=== PATIENT | male | born 1975 | race Caucasian/White ===

== ENCOUNTER 2016-12-24 17:31 | Emergency (ER) | payer MEDICAID, OTHER ==
[~2016-12-24] VITALS: Ht 188 cm; Wt 113.4 kg
[~2016-12-24 17:31] MED LIST: ZOFR4TAB3 SL
[2016-12-24 17:40] VITALS: BP 173/74; PULSE 93; RESP 16; TEMP 97.9; O2SAT 97
--- NOTE | 2016-12-24 19:03 | PD ---
HPI Chief Complaint: Injury Time Seen by Provider: 18:38 Travel History International Travel<30 days: No Contact w/Intl Traveler<30days: No Traveled to known affect area: No History of Present Illness HPI 41-year-old male presents to the emergency room for evaluation of left shoulder pain and swelling after injuring it yesterday. Patient states he carried a heavy couch up 3 flights of stairs and had some pain at that time. States pain worsened throughout the day today. No other trauma or injury. He cannot take ibuprofen because of history of GI bleeding. Patient has not taken anything else for his symptoms. Reports associated pinkie and some paresthesias. PFSH Past Medical History Arthritis: Yes (REITERS SYNDROME) Cancer: No Cardiovascular Problems: Yes (HEART MURMUR) Diminished Hearing: No Endocrine: No Gastrointestinal Disorders: Yes (HX OF GI BLEED) Genetic Disorder: Yes (REITERS) Genitourinary: No Immune Disorder: No Implanted Vascular Access Dvce: No Musculoskeletal: Yes Neurologic: No Psychiatric: No Reproductive: No Respiratory: No Immunizations Current: No Past Surgical History Abdominal Surgery: Yes (BILAT INGUINAL REPAIR) Genitourinary Surgery: Yes (VASECTOMY) Other Surgery: Yes (BILAT. PATELLAR-TENDON REALIGNMENTS) Social History Alcohol Use: Yes (Weekends 6 BEERS TODAY) Tobacco Use: No (Denies) Substance Use: No Allergies-Medications (Allergen,Severity, Reaction): Coded Allergies: tramadol (Unverified Adverse Reaction, Intermediate, NIGHTMARE, 12/24/16) acetaminophen (Unverified Adverse Reaction, Mild, VOMITING, 12/24/16) codeine (Unverified Adverse Reaction, Mild, VOMITING, 12/24/16) hydrocodone (Unverified Adverse Reaction, Mild, VOMITING, 12/24/16) Uncoded Allergies: Fentanyl patch (Adverse Reaction, Severe, "Eats my flesh off", 06/21/15) Reported Meds & Prescriptions Reported Meds & Active Scripts Active No Active Prescriptions or Reported Medications Review of Systems Except as stated in HPI: all other systems reviewed are Neg Physical Exam Narrative GENERAL: Well-nourished, well-developed male in no acute distress. Afebrile. Ambulatory. SKIN: Focused skin assessment warm/dry. No erythema or ecchymosis. HEAD: Normocephalic. EYES: No scleral icterus. No injection or drainage. NECK: Supple, trachea midline. No JVD or lymphadenopathy. CARDIOVASCULAR: Regular rate and rhythm without murmurs, gallops, or rubs. RESPIRATORY: Breath sounds equal bilaterally. No accessory muscle use. MUSCULOSKELETAL: No cyanosis. Mild edema of the left shoulder. Extreme tenderness to palpation of the anterior humeral head. Limited range of motion secondary to pain. 2+ radial pulse. Radial, ulnar, and median nerves intact. Slight decreased strength in the ulnar distribution secondary to pain. Data Data Last Documented VS Vital Signs Date Time Temp Pulse Resp B/P (MAP) Pulse Ox O2 Delivery O2 Flow Rate FiO2 12/24/16 17:40 97.9 93 16 173/74 (107) 97 MDM Medical Decision Making Medical Screen Exam Complete: Yes Emergency Medical Condition: Yes Medical Record Reviewed: Yes Differential Diagnosis sprain, strain, rotator cuff injury, fracture, dislocation Narrative Course 41-year-old male presents to the emergency room for evaluation of left shoulder pain after injuring it while lifting a heavy couch yesterday. States pain progressively worsened. Left upper extremity is neurovascularly intact with 2+ radial pulse. Radial, ulnar, and median nerves intact. Limited range of motion of the shoulder secondary to pain. There is mild edema but no significant tenderness to palpation of the left shoulder. This is rotator cuff injury. Patient was informed that will not show up on x-ray. He was told to follow-up with his primary care physician for outpatient MRI. Patient was given sling but told not to wear more than 3 days and take Tylenol for pain. Patient reports no allergy to Tylenol, just to Tylenol 3. Told to return for worsening symptoms. He understands and agrees to plan. Diagnosis Primary Impression: Left shoulder pain Qualified Codes: M25.512 - Pain in left shoulder Referrals: Primary Care Physician Additional Instructions: Rest and drink plenty of fluids. Use sling for pain. Do not use more than 3 days. Take Tylenol as directed, as needed for pain. Apply ice to the affected area for 20 minutes at a time, as needed for pain and swelling. Follow-up with a primary care physician. Return to the emergency room for worsening symptoms. Med/Other Pt SpecificInfo: Prescription(s) given Scripts No Active Prescriptions or Reported Meds Disposition: 01 DISCHARGE HOME Condition: Stable Geena Canales Dec 24, 2016 19:03
== END 2016-12-24 19:13 | disposition home or self-care (01) ==
LOC: PHEFT 17:31
DX: M25.512 Pain in left shoulder (principal); S46.002A Unspecified injury of muscle(s) and tendon(s) of the rotator cuff of left shoulder, initial encounter; R20.2 Paresthesia of skin; Z87.39 Personal history of other diseases of the musculoskeletal system and connective tissue; Z86.79 Personal history of other diseases of the circulatory system; Z87.19 Personal history of other diseases of the digestive system; X50.0XXA Overexertion from strenuous movement or load, initial encounter
CPT/HCPCS: 99282

== ENCOUNTER 2017-06-20 01:50 | Emergency (ER) | payer OTHER ==
[2017-06-20] VITALS (7 sets, daily range): BP systolic 80–143; BP diastolic 50–83; PULSE 56–88; RESP 16–18; O2SAT 98–99
[~2017-06-20] VITALS: Ht 188 cm; Wt 115.0 kg
[2017-06-20] MEDS ORDERED: PERC5TAB12 PO (02:20)
[2017-06-20] MEDS ORDERED: SODIUM CHLOR 0.9% 1000 ML INJ 1,000 ML IV SCH (03:25)
[2017-06-20] MEDS ORDERED: diphenhydrAMINE HCL 50 MG/ML VIAL IVP ONE (03:30)
[2017-06-20] MEDS ORDERED: methylPREDNISolone SOD SUCC 125 MG/2 ML VIAL IV PUSH ONE (03:30)
[2017-06-20] MEDS ORDERED: SODIUM CHLORIDE 0.9% FLUSH 10 ML FLUSH IV FLUSH PRN (03:30)
[2017-06-20] MEDS ORDERED: EPINEPHrine HCL (1:1000) 1 MG/ML VIAL IM ONE (03:30)
[2017-06-20] MEDS ORDERED: FAMOTIDINE 20 MG/2 ML VIAL IV PUSH ONE (03:30)
--- NOTE | 2017-06-20 03:30 | PD ---
HPI Chief Complaint: Allergic/Adverse Reaction Time Seen by Provider: 03:20 Travel History International Travel<30 days: No Contact w/Intl Traveler<30days: No Traveled to known affect area: No History of Present Illness HPI The patient is a 42-year-old male that developed an urticarial reaction starting about 24 hours ago. It went away completely but came back again tonight. He denies any wheezing or shortness of breath. He is not on any new medication and has no idea what he is allergic to. He thinks that stress may have caused this. He is followed by the [facility] and plans to go to the [facility] tomorrow about this. He is a large individual, not obese and he has no other major medical problems. PFSH Past Medical History Arthritis: Yes (REITERS SYNDROME) Cancer: No Cardiovascular Problems: Yes (HEART MURMUR) Diminished Hearing: No Endocrine: No Gastrointestinal Disorders: Yes (HX OF GI BLEED) Genetic Disorder: Yes (REITERS) Genitourinary: No Immune Disorder: No Implanted Vascular Access Dvce: No Musculoskeletal: Yes Neurologic: No Psychiatric: No Reproductive: No Respiratory: No Immunizations Current: No Tetanus Vaccination: > 5 Years Influenza Vaccination: No Past Surgical History Abdominal Surgery: Yes (BILAT INGUINAL REPAIR) Genitourinary Surgery: Yes (VASECTOMY) Other Surgery: Yes (BILAT. PATELLAR-TENDON REALIGNMENTS) Social History Alcohol Use: Yes (Weekends 6 BEERS TODAY) Tobacco Use: No (Denies) Substance Use: No Allergies-Medications (Allergen,Severity, Reaction): Coded Allergies: tramadol (Unverified Adverse Reaction, Intermediate, NIGHTMARE, 12/24/16) acetaminophen (Unverified Adverse Reaction, Mild, VOMITING, 12/24/16) codeine (Unverified Adverse Reaction, Mild, VOMITING, 12/24/16) hydrocodone (Unverified Adverse Reaction, Mild, VOMITING, 12/24/16) Uncoded Allergies: Fentanyl patch (Adverse Reaction, Severe, "Eats my flesh off", 06/21/15) Reported Meds & Prescriptions Reported Meds & Active Scripts Active Reported Percocet (Oxycodone-Acetaminophen) 5-325 mg Tab 1-2 Tab PO Q4H PRN Review of Systems Except as stated in HPI: all other systems reviewed are Neg Physical Exam Narrative GENERAL: Well-nourished, well-developed patient And slight apparent distress with his generalized allergic reaction SKIN: Focused skin assessment warm/dry. There is an urticarial reaction over the thighs, chest, hands, arms, neck, head, entire trunk. HEAD: Normocephalic. EYES: No scleral icterus. No injection or drainage. NECK: Supple, trachea midline. No JVD or lymphadenopathy. CARDIOVASCULAR: Regular rate and rhythm without murmurs, gallops, or rubs. RESPIRATORY: Breath sounds equal bilaterally. No accessory muscle use. Lungs clear to auscultation bilaterally. GASTROINTESTINAL: Abdomen soft, non-tender, nondistended. MUSCULOSKELETAL: No cyanosis, or edema. BACK: Nontender without obvious deformity. No CVA tenderness. Data Data Last Documented VS Vital Signs Date Time Temp Pulse Resp B/P (MAP) Pulse Ox O2 Delivery O2 Flow Rate FiO2 06/20/17 04:05 70 16 132/68 (89) 98 Room Air Orders Orders Basic Metabolic Panel (Bmp) (06/20/17 03:25) Complete Blood Count With Diff (06/20/17 03:25) Ecg Monitoring (06/20/17 03:25) Iv Access Insert/Monitor (06/20/17 03:25) Oximetry (06/20/17 03:25) Diphenhydramine Inj (Benadryl Inj) (06/20/17 03:30) Methylprednisolone So Succ Inj (Solumedr (06/20/17 03:30) Famotidine Inj (Pepcid Inj) (06/20/17 03:30) Sodium Chlor 0.9% 1000 Ml Inj (Ns 1000 M (06/20/17 03:25) Sodium Chloride 0.9% Flush (Ns Flush) (06/20/17 03:30) Epinephrine (1:1000) Inj (Adrenalin (1:1 (06/20/17 03:30) MDM Medical Decision Making Medical Screen Exam Complete: Yes Emergency Medical Condition: Yes Medical Record Reviewed: Yes Differential Diagnosis Generalized allergic reaction, contact dermatitis, cellulitis-unlikely, anxiety reaction with urticaria Narrative Course It is now 0410 and the patient's rash has been dramatically reduced and is much less pruritic. The patient wants to go home. He will be given a prescription for prednisone 50 mg, 4 days twice daily and 4 days once daily. He also gets Zantac. He is to buy Benadryl [id number] and take it every 6 hours 25 mg. Impression: Generalized allergic reaction. Diagnosis Primary Impression: Allergic reaction Additional Instructions: As we discussed, the prednisone is taken 1 tablet twice daily for 4 days followed by 1 tablet once daily for 4 days. The Benadryl is taken 25 mg every 6 hours and the Zantac is taken 1 tablet twice daily. Follow-up with your primary care physician next week. Med/Other Pt SpecificInfo: Prescription(s) given Scripts Prednisone (Prednisone) 50 Mg Tab 50 MG PO BID for X 4 days than daily X 4 days, #12 TAB 0 Refills Prov: Albert Parham MD 06/20/17 Ranitidine (Zantac) 150 Mg Tab 150 MG PO BID for Reduce Stomach Acid, #30 TAB 0 Refills Prov: Albert Parham MD 06/20/17 Disposition: 01 DISCHARGE HOME Condition: Stable Albert Parham MD Jun 20, 2017 03:30
[2017-06-20] MEDS ORDERED: PRED50 PO (04:17)
[2017-06-20] MEDS ORDERED: ZANT150T2 PO (04:17)
== END 2017-06-20 05:28 | disposition home or self-care (01) ==
LOC: PHED 01:50
DX: T78.40XA Allergy, unspecified, initial encounter (principal); L50.9 Urticaria, unspecified; M02.30 Reiter's disease, unspecified site; Z88.5 Allergy status to narcotic agent; Z88.8 Allergy status to other drugs, medicaments and biological substances; Z79.899 Other long term (current) drug therapy
CPT/HCPCS: 96361; 96372; 96374; 96375; 99284; J0171; J1200; J2930; J7030

== ENCOUNTER 2018-03-02 21:08 | Observation (INO) ==
[2018-03-02] MEDS ORDERED: Morphine Inj 4 MG/ML Vial IV.PUSH ONE (21:19)
[2018-03-02] MEDS: Sod Chloride 0.9% Inj 1,000 ML IV.CONT SCH (21:24)
[2018-03-02 21:38] LABS: Baso # (Auto) 0.1 th/mm3 (0.0-0.2); Baso % (Auto) 0.8 % (0.0-2.0); Eos # (Auto) 0.2 th/mm3 (0.0-0.4); Eos % (Auto) 2.5 % (0.0-4.0); Hematocrit 41.6 % (39.0-51.0); Hemoglobin 14.8 gm/dL (13.0-17.0); Lymph # (Auto) 2.3 th/mm3 (1.0-4.8); Lymph % (Auto) 36.5 % (9.0-44.0); Mean Corpuscular HGB Conc 35.5 % (32.0-36.0); Mean Corpuscular Hemoglobin 30.2 pg (27.0-34.0); Mean Corpuscular Volume 84.9 fL (80.0-100.0); Mean Platelet Volume 9.1 fL (7.0-11.0); Mono # (Auto) 0.6 th/mm3 (0.0-0.9); Mono % (Auto) 10.1 % (0.0-8.0); Neut % (Auto) 50.1 % (16.0-70.0); Platelet Count 239 th/mm3 (150-450); Red Cell Distribution Width 11.4 % (11.6-17.2); White Blood Count 6.3 th/mm3 (4.0-11.0)
--- NOTE | 2018-03-02 21:40 | XR ---
EXAM DATE: 03/02/2018 9:37 PM EST AGE/SEX: 43 years / Male INDICATIONS: Chest pain. CLINICAL DATA: This is the patient's initial encounter. Patient reports that signs and symptoms have been present for 1 day and indicates a pain score of 8/10. MEDICAL/SURGICAL HISTORY: . Cariomyopathy. . Left shoulder. Bilateral knees. COMPARISON: No prior exams available for comparison. FINDINGS: A single AP view of the chest demonstrates the lungs to be symmetrically aerated without evidence of mass, infiltrate or effusion. The cardiomediastinal contours are unremarkable. Osseous structures a re intact. CONCLUSION: No evidence of acute cardiopulmonary disease. Electronically signed by: Hunter Snowden MD 03/02/2018 9:39 PM EST
[2018-03-02 21:43] LABS: Chloride 104 meq/L (98-107); Potassium 3.5 meq/L (3.5-5.1); Sodium 137 meq/L (136-145)
--- NOTE | 2018-03-02 21:43 | ED ---
HPI General Chief Complaint: Chest Pain Stated Complaint: CP x 45 min Time Seen by Provider: 03/02/18 21:14 Source: patient Mode of arrival: ambulatory Limitations: no limitations History of Present Illness HPI narrative: 43-year-old male presents to the emergency department by private transportation for 45 minutes of retrosternal chest pain nonradiating associated with mild shortness of breath and diaphoresis. Patient has had nausea. Patient states onset at rest while watching TV. Patient rates pain 10/ 10 in intensity. Patient states one prior history of similar chest pain without evaluation. Patient is currently under the care of cardiology. Patient has undergone echocardiogram and Holter monitoring. Patient encouraged to come to the emergency room should he develop discomfort or chest pain. Patient diagnosed in 2014 with hypertrophic obstructive cardiomyopathy was lost to follow-up and since December of this year has been evaluated by cardiology through the [facility]. Patient denies personal history of hypertension dyslipidemia diabetes tobaccoism substance use or known CAD. Patient has family history of atrial fibrillation. Patient's had no rhythm disturbance. Patient takes no blood thinning agents including aspirin. Patient denies alcohol use. Patient denies any mid scapular pain or ripping tearing discomfort. Patient denies any referred neck jaw back shoulder arm or abdominal pain. Patient has had no long distance travel protracted bedrest or surgical procedure. Patient has no lower extremity pain or swelling. No personal history of family history of clotting disorder PE or DVT. Patient's had no recent febrile illness. Patient is unable to identify exacerbating or alleviating factors. MD complaint: Reports chest pain STEMI Alert: No Onset (ago): minute(s) (45) Duration: constant Onset: during rest Pain location: Reports substernal Severity: severe Severity scale (1-10): 10 Quality: Reports tightness, aching and heaviness Pain radiation: Reports none Relieving factors: nothing Exacerbating factors: nothing Context: Denies recent illness, recent surgery, recent immobilization, recent travel, trauma/injury, new medications and history of DVT/PE Associated symptoms: Reports nausea, diaphoresis and dyspnea; Denies vomiting, sense of impending doom, syncope, palpitations, fever, cough and leg swelling Treatments prior to arrival chest pain: Reports none Related Data Home Medications Medication Instructions Recorded Confirmed Unable to Obtain Home Meds 03/03/18 03/03/18 Allergies Allergy/AdvReac Type Severity Reaction Status Date / Time tramadol AdvReac Intermediate NIGHTMARE Verified 03/02/18 22:50 acetaminophen AdvReac Mild VOMITING Verified 03/02/18 22:50 codeine AdvReac Mild VOMITING Verified 03/02/18 22:50 Fentanyl patch AdvReac Severe "Eats my Uncoded 03/02/18 21:16 flesh off" Review of Systems ROS: all other systems reviewed are negative PMFSH History History Provided By: Patient Medical History Medical History Hypertrophic obstructive cardiomyopathy (Acute) Surgical History Surgical History H/O bilateral inguinal hernia repair (Acute) H/O knee surgery (Acute) History of shoulder surgery (Acute) Social History Social History Substance History: No History of Abuse Second Hand Smoke Exposure: No Smoking Status: Former smoker Tobacco Type: Cigarettes How Often Do You Have a Drink Containing Alcohol: 2 to 3 times a week Recent Travel in [facility] within the Last 8 Weeks: No Recent Out of Country Travel within the Last 8 Weeks: No Exam Narrative Exam Narrative: GENERAL: Well-nourished, well-developed patient. SKIN: Focused skin assessment warm/dry. HEAD: Normocephalic. EYES: No scleral icterus. No injection or drainage. NECK: Supple, trachea midline. No JVD or lymphadenopathy. CARDIOVASCULAR: Regular rate and rhythm without murmurs, gallops, or rubs. RESPIRATORY: Breath sounds equal bilaterally. No accessory muscle use. GASTROINTESTINAL: Abdomen soft, non-tender, nondistended. MUSCULOSKELETAL: No cyanosis, or edema. BACK: Nontender without obvious deformity. No CVA tenderness. Course Consultations Consultation #1: discussed with Dr Christal burdick stemi/cardiology coverage and EKG's sent and reviewed; [facility] OBS with nuclear stress test and/or CTA heart/ coronaries per protocol in AM. Initial Documented Vital Signs Temperature 97.9 F 03/02/18 21:10 Pulse Rate 79 03/02/18 21:10 Respiratory Rate 22 03/02/18 21:10 Blood Pressure 180/99 H 03/02/18 21:10 Pulse Oximetry 98 03/02/18 21:10 Last Documented Vital Signs Temperature 96.6 F L 03/03/18 00:21 Pulse Rate 61 03/03/18 00:21 Respiratory Rate 20 03/03/18 00:21 Blood Pressure 135/72 03/03/18 00:21 Pulse Oximetry 95 03/03/18 00:21 Medical Decision Making MDM Narrative Medical decision making narrative: Patient placed on cardiac sonographer IV access obtained specimens collected and sent for resulting EKG performed shows sinus rhythm rate 80 left atrial enlargement QS inferiorly with no acute ST elevation J-point elevation identified V1 V2 no ST segment depression T wave inversion laterally nonspecific; patient given aspirin 162 mg x1 as well as sublingual nitroglycerin. Pain was 10/10 in intensity decreased to 5/10 in intensity additional sublingual nitroglycerin was administered and pain state 5/10 in intensity but patient dropped his blood pressure becoming symptomatic with lightheadedness placed supine patient given bolus of normal saline. No nausea no vomiting no increased pain stat repeat EKG again shows sinus rhythm with LVH by voltage criterion QS inferiorly with no ST segment depression J-point elevation in V1 V2 however concern for possible ST elevation in lead III. Nitropaste 1/2 inch placed to the chest wall and call placed to cardiology. Cardiac enzymes found to be in normal range Patient's case discussed with on-call toy stuffer Dr. Siegel Patient's case discussed with on-call medicine physician Dr. Olmstead accepts to [facility] Medical Screen Exam Complete: Yes Emergency Medical Condition: Yes Differential Diagnosis Differential Diagnosis: Chest pain, ACS, HI, dissection Medical Records Medical records reviewed: Yes I reviewed the patient's medical records. Lab Data Lab results reviewed: Yes I reviewed the patient's lab results. Result diagrams: 03/02/18 21:20 03/02/18 21:20 Lab Results 03/02/18 03/02/18 03/02/18 Range/Units 21:20 21:20 21:20 CBC w Diff Auto diff final WBC 6.3 (4.0-11.0) th/mm3 RBC 4.90 (4.50-5.90) mil/mm3 Hgb 14.8 (13.0-17.0) gm/dL Hct 41.6 (39.0-51.0) % MCV 84.9 (80.0-100.0) fL MCH 30.2 (27.0-34.0) pg MCHC 35.5 (32.0-36.0) % RDW 11.4 L (11.6-17.2) % Plt Count 239 (150-450) th/mm3 MPV 9.1 (7.0-11.0) fL Neut % (Auto) 50.1 (16.0-70.0) % Lymph % (Auto) 36.5 (9.0-44.0) % Knox % (Auto) 10.1 H (0.0-8.0) % Eos % (Auto) 2.5 (0.0-4.0) % Baso % (Auto) 0.8 (0.0-2.0) % Neut # (Auto) 3.0 (1.8-7.7) th/mm3 Lymph # (Auto) 2.3 (1.0-4.8) th/mm3 Knox # (Auto) 0.6 (0.0-0.9) th/mm3 Eos # (Auto) 0.2 (0.0-0.4) th/mm3 Baso # (Auto) 0.1 (0.0-0.2) th/mm3 WBC Differential . Differential Comment . PT 10.3 (9.8-11.6) sec INR 1.0 Ratio APTT 28.0 (23.4-31.7) sec Sodium 137 (136-145) meq/L Potassium 3.5 (3.5-5.1) meq/L Chloride 104 (98-107) meq/L Carbon Dioxide 26.3 (21.0-32.0) meq/L Anion Gap 7 (5-15) meq/L BUN 14 (7-18) mg/dL Creatinine 1.10 (0.60-1.30) mg/dL Estimated GFR 73 L (>89) mL/min Random Glucose 122 H (74-106) mg/dL Calcium 8.3 L (8.5-10.1) mg/dL Magnesium 2.2 (1.5-2.5) mg/dL Total Bilirubin 0.6 (0.2-1.0) mg/dL AST 23 (15-37) U/L ALT 47 (12-78) U/L Alkaline Phosphatase 87 (45-117) U/L Total Creatine Kinase (39-308) U/L Troponin I Less than 0.02 L (0.02-0.05) ng/mL Total Protein 7.6 (6.4-8.2) g/dL Albumin 4.1 (3.4-5.0) g/dL 03/03/18 Range/Units 00:10 CBC w Diff WBC (4.0-11.0) th/mm3 RBC (4.50-5.90) mil/mm3 Hgb (13.0-17.0) gm/dL Hct (39.0-51.0) % MCV (80.0-100.0) fL MCH (27.0-34.0) pg MCHC (32.0-36.0) % RDW (11.6-17.2) % Plt Count (150-450) th/mm3 MPV (7.0-11.0) fL Neut % (Auto) (16.0-70.0) % Lymph % (Auto) (9.0-44.0) % Knox % (Auto) (0.0-8.0) % Eos % (Auto) (0.0-4.0) % Baso % (Auto) (0.0-2.0) % Neut # (Auto) (1.8-7.7) th/mm3 Lymph # (Auto) (1.0-4.8) th/mm3 Knox # (Auto) (0.0-0.9) th/mm3 Eos # (Auto) (0.0-0.4) th/mm3 Baso # (Auto) (0.0-0.2) th/mm3 WBC Differential Differential Comment PT (9.8-11.6) sec INR Ratio APTT (23.4-31.7) sec Sodium (136-145) meq/L Potassium (3.5-5.1) meq/L Chloride (98-107) meq/L Carbon Dioxide (21.0-32.0) meq/L Anion Gap (5-15) meq/L BUN (7-18) mg/dL Creatinine (0.60-1.30) mg/dL Estimated GFR (>89) mL/min Random Glucose (74-106) mg/dL Calcium (8.5-10.1) mg/dL Magnesium (1.5-2.5) mg/dL Total Bilirubin (0.2-1.0) mg/dL AST (15-37) U/L ALT (12-78) U/L Alkaline Phosphatase (45-117) U/L Total Creatine Kinase 138 (39-308) U/L Troponin I 0.04 (0.02-0.05) ng/mL Total Protein (6.4-8.2) g/dL Albumin (3.4-5.0) g/dL Imaging Data Radiologist's impression: Chest X-Ray 03/02/18 21:14 CONCLUSION: No evidence of acute cardiopulmonary disease. ECG Data Attestation: I personally reviewed and interpreted this ECG as follows: (EKG sinus rhythm with no acute ST elevation nonspecific J-point elevation V1 V2 and Q wave age-indeterminate inferiorly.) Discharge Plan Discharge Disposition Patient Disposition: 30 Still Patient Discharge Condition Condition: Stable Discharge Details Diagnosis: Chest pain Physicians Team ED Provider: Angeles Chang Primary Care Provider: [facility],Physician 's Attending Provider: Itzel Le ED Status: Left Department Discharge Information Discharge Date/Time: 03/03/18 00:24
[2018-03-02 21:46] LABS: Albumin 4.1 g/dL (3.4-5.0); Anion Gap 7 meq/L (5-15); Calcium 8.3 mg/dL (8.5-10.1); Carbon Dioxide 26.3 meq/L (21.0-32.0); Glucose,Random 122 mg/dL (74-106); Magnesium 2.2 mg/dL (1.5-2.5)
[2018-03-02 21:47] LABS: Blood Urea Nitrogen 14 mg/dL (7-18)
[2018-03-02 21:49] LABS: Alanine Aminotransferase 47 U/L (12-78); Aspartate Aminotransferase 23 U/L (15-37); Prothrombin Time 10.3 sec (9.8-11.6)
[2018-03-02 21:50] LABS: Glomerular Filtration Rate 73 mL/min (>89)
[2018-03-02 21:51] LABS: Total Protein 7.6 g/dL (6.4-8.2)
[2018-03-02 21:52] LABS: Alkaline Phosphatase 87 U/L (45-117)
[2018-03-02] MEDS ORDERED: Sodium Chlor 0.9% Inj 500 ML IV.SIG SCH (22:00)
[2018-03-02] MEDS ORDERED: ALPRAZolam 0.25 MG Tablet PO PRN (22:30)
[2018-03-02] MEDS ORDERED: Iohexol 350 MG/ML 100 ML Vial (for Cath Lab) IVCONTRAST ONE (22:41)
[2018-03-03 00:37] LABS: Troponin I 0.04 ng/mL (0.02-0.05)
[2018-03-03] MEDS: Morphine Sulfate Inj 2 MG/ML Vial IV.PUSH PRN ×2 (00:45→09:14)
[2018-03-03 04:05] LABS: Troponin I 0.04 ng/mL (0.02-0.05)
[2018-03-03] MEDS: Sod Chloride 0.9% Inj 1,000 ML IV.CONT SCH ×2 (06:28→17:17)
--- NOTE | 2018-03-03 07:05 | ECG ---
Date Performed: 03/03/2018 Time Performed: 03:13:58 PTAGE: 43 years EKG: SINUS BRADYCARDIA POSSIBLE RIGHT VENTRICULAR CONDUCTION DELAY LEFT VENTRICULAR HYPERTROPHY AND ST-T CHANGE ABNORMAL ECG No significant change from prior electrocardiogram. PREVIOUS TRACING : 03/03/2018 00.09 DOCTOR: Randy Nieto Interpretating Date/Time 03/03/2018 07:05:07
--- NOTE | 2018-03-03 07:08 | ECG ---
Date Performed: 03/03/2018 Time Performed: 00:09:45 PTAGE: 43 years EKG: SINUS BRADYCARDIA LEFT VENTRICULAR HYPERTROPHY AND ST-T CHANGE POSSIBLE INFERIOR MYOCARDIAL INFARCTION POSSIBLE BRUGADA PATTERN (NON-DIAGNOSTIC) ABNORMAL ECG No significant change from prior e lectrocardiogram. PREVIOUS TRACING : 03/02/2018 21.49 DOCTOR: Randy Nieto Interpretating Date/Time 03/03/2018 07:06:54
--- NOTE | 2018-03-03 07:11 | ECG ---
Date Performed: 03/02/2018 Time Performed: 21:49:17 PTAGE: 43 years EKG: Sinus rhythm POSSIBLE RIGHT VENTRICULAR CONDUCTION DELAY LEFT VENTRICULAR HYPERTROPHY AND ST-T CHANGE POSSIBLE IN FERIOR MYOCARDIAL INFARCTION POSSIBLE Brugada pattern ABNORMAL ECG No significant change from prior e lectrocardiogram. DOCTOR: Randy Nieto Interpretating Date/Time 03/03/2018 07:09:27
--- NOTE | 2018-03-03 07:11 | ECG ---
Date Performed: 03/02/2018 Time Performed: 21:17:07 PTAGE: 43 years EKG: Sinus rhythm POSSIBLE LEFT ATRIAL ENLARGEMENT POSSIBLE INFERIOR MYOCARDIAL INFARCTION Nonspecific ST and T wave a bnormalities POSSIBLE Brugada ABNORMAL ECG NO PREVIOUS TRACING DOCTOR: Randy Nieto Interpretating Date/Time 03/03/2018 07:10:11
[2018-03-03] MEDS: Aspirin 325 MG Tablet PO SCH (08:48)
[2018-03-03] MEDS ORDERED: Heparin 10,000 UNITS/10 ML Vial (for IV use) IV.PUSH ONE (09:30)
[2018-03-03] MEDS: Heparin Drip 25,000 UNIT/250 ML BAG IV.CONT PRN (09:49)
--- NOTE | 2018-03-03 09:54 | P.HP ---
History of Present Illness Primary Care Physician: Physician [facility] Chief Complaint: Chest pain History of Present Illness: 43-year-old male with rather sniffing cardiac history with severe hypertrophic cardiomyopathy who is undergoing management by [employer] in [place]. Patient states that since December of this year he has been managed by [facility] cardiology in [place]. Patient has undergone echocardiogram to show severe hypertrophic cardiomyopathy. He has undergone recent Holter monitor, he has an appointment with cardiovascular radiologic technologist in March to evaluate possible ablation versus cardiac surgery, AICD placement. Patient was in his normal state of health until last evening when he was watching TV at approximately 9: 00 at night when he got a sudden onset of chest discomfort which he described as a elephant sitting on his chest and a squeezing sensation around his heart which was 8/10 on a pain scale. He had associated diaphoresis, shortness of breath, dyspnea. Patient was notified by his [employer] supervisor sign [employer] that if he was to have any discomfort he should go to the hospital immediately because he is at risk for sudden cardiac . Patient was evaluated emergency department with laboratory studies which troponins were unremarkable. Patient had EKGs which did show significant abnormalities with what appears to be ST elevations in lead III, V2, V3, V4, Q waves in inferior leads, T wave abnormalities in leads I , aVR, V1. Patient was given nitroglycerin in the emergency department with only minimal relief of his chest discomfort. Patient did have an episode of hypotension in which his blood pressure dropped down to 78/38. Patient was given a liter fluid bolus with improvement of his blood pressure. Upon seeing the patient he still having active chest discomfort 8/10 on a pain scale located in the middle part of his chest that he describes as a elephant sitting on his chest radiating up into the left side of his neck, left arm, with shortness of breath and dyspnea. - Diagnosis (1) Chest pain Review of Systems All other systems reviewed negative except as stated in HPI Constitutional: Reports excessive sweating Cardiovascular: Reports chest pain, Reports radiating jaw, neck or arm pain, Reports shortness of breath PMFSH - History History Provided By: Patient - Medical History Medical History: Medical History (Last Updated 03/02/18 @ 22:18 by Marion Felton RN) Hypertrophic obstructive cardiomyopathy - Surgical History Surgical History: Surgical History (Last Updated 03/02/18 @ 22:18 by Marion Felton RN) H/O bilateral inguinal hernia repair H/O knee surgery History of shoulder surgery - Family History Family History: Family History (Last Updated 03/03/18 @ 09:43 by BELA Shaw) Father History of atrial fibrillation - Tobacco History Second Hand Smoke Exposure: No Tobacco Use In Past 30 Days: No Smoking Status: Former smoker Tobacco Type: Cigarettes Number of Pack Years (if former smoker): 22 (Quit smoking 5 years ago) - Alcohol History How Often Do You Have a Drink Containing Alcohol: 2 to 3 times a week - Substance Use History Substance History: No History of Abuse - Travel History Recent Travel in the [place] Within the Last 8 Weeks: No Recent Travel Out of the Country Within the Last 8 Weeks: No - Immunization History Tetanus Immunization: <5 Years Medications and Allergies Active Medications: Active Medications Alprazolam (Xanax) 0.25 mg PO Q8H PRN PRN Reason: ANXIETY Aspirin (Aspirin) 325 mg PO DAILY [facility] Last Admin: 03/03/18 08:48 Dose: 325 mg Atorvastatin Calcium (Lipitor) 20 mg PO DAILY [facility] Heparin Sodium (Porcine) (Heparin Inj) 2,500 units IV.PUSH UNSCH PRN PRN Reason: aPTT 25-39 Heparin Sodium (Porcine) (Heparin Inj) 5,000 units IV.PUSH UNSCH PRN PRN Reason: aPTT < 25 Sodium Chloride (Ns Inj) 1,000 mls @ 100 mls/hr IV.CONT .Q10H [facility] Last Admin: 03/03/18 06:28 Dose: Not Given Heparin Sodium/Dextrose (Heparin/D5w 25,000 U/250 Ml) 25,000 unit in 250 mls @ 10 mls/hr IV.CONT TITRATE PRN; Protocol PRN Reason: Per Protocol Metoprolol Tartrate (Lopressor) 12.5 mg PO BID [facility] Miscellaneous (Pill Splitter) 1 each OTHER UNSCH PRN PRN Reason: SEE LABEL COMMENTS Morphine Sulfate (Morphine Inj) 2 mg IV.PUSH Q3H PRN PRN Reason: CHEST PAIN Last Admin: 03/03/18 09:14 Dose: 2 mg Nitroglycerin (Nitro-Bid 2% Oint) 0.5 inch TOPICAL Q6HR [facility] Last Admin: 03/03/18 07:54 Dose: 0.5 inch Sodium Chloride (Ns Flush) 2 ml IV.FLUSH BID AD[facility] Sodium Chloride (Ns Flush) 2 ml IV.FLUSH PRN PRN PRN Reason: FLUSH AFTER USING IV ACCESS Allergies Allergy/AdvReac Type Severity Reaction Status Date / Time tramadol AdvReac Intermediate [place] Verified 03/02/18 22:50 acetaminophen AdvReac Mild VOMITING Verified 03/02/18 22:50 codeine AdvReac Mild VOMITING Verified 03/02/18 22:50 Fentanyl patch AdvReac Severe "Eats my Uncoded 03/02/18 21:16 flesh off" Home Medications Medication Instructions Recorded Confirmed Type Unable to Obtain Home Meds 03/03/18 03/03/18 History Exam Vital signs: Vital Signs 03/02/18 21:10 03/02/18 21:14 03/02/18 21:33 Temperature 97.9 F Pulse Rate 79 64 Respiratory Rate 22 18 Blood Pressure 180/99 H 145/81 H Pulse Oximetry 98 97 03/02/18 21:35 03/02/18 21:38 03/02/18 21:43 Temperature Pulse Rate 74 74 65 Respiratory Rate 18 18 16 Blood Pressure 151/89 H 157/81 H 78/38 L Pulse Oximetry 95 95 95 03/02/18 21:44 03/02/18 21:46 03/02/18 22:01 Temperature Pulse Rate 50 L 56 L 70 Respiratory Rate 16 16 16 Blood Pressure 106/52 L 119/57 L 146/75 H Pulse Oximetry 97 96 03/02/18 22:22 03/02/18 22:27 03/02/18 22:30 Temperature Pulse Rate 65 63 Respiratory Rate 16 17 16 Blood Pressure 141/67 H 148/71 H Pulse Oximetry 98 98 03/02/18 22:40 03/03/18 00:00 03/03/18 00:21 Temperature 96.6 F L Pulse Rate 60 61 Respiratory Rate 20 20 Blood Pressure 145/74 H 135/72 Pulse Oximetry 95 03/03/18 03:15 03/03/18 04:00 03/03/18 04:42 Temperature 96.7 F L Pulse Rate 57 L 55 L Respiratory Rate 20 Blood Pressure 123/62 Pulse Oximetry 96 98 03/03/18 07:43 03/03/18 08:00 03/03/18 09:24 Temperature 97.8 F Pulse Rate 58 L 60 Respiratory Rate 19 18 Blood Pressure 136/77 154/76 H Pulse Oximetry 98 99 03/03/18 09:25 Temperature Pulse Rate Respiratory Rate 18 Blood Pressure Pulse Oximetry Intake & Output 03/02/18 03/03/18 03/03/18 18:59 06:59 18:59 Intake Total 500 / 500 240 / 240 Output Total 400 / 400 Balance 500 / 500 -160 / -160 Weight 128.7 kg Intake: IV 500 / 500 NS Inj 500 ML @ 1000 mls/hr IV. 500 / 500 SIG BOLUS ADAMARIS Rx#:[id number] Oral 0 / 0 240 / 240 Output: Urine 400 / 400 Other: # Voids 1 Weight On Admission 128.6 kg Narrative: GENERAL: Well-developed, well-nourished, in no acute distress. alert and orientated HEENT: Head is normocephalic without any lesions or masses noted. Facial features are symmetric. Eyes: Pupils equal round reactive to light. Extraocular muscles are intact. Conjunctivae were clear. Oropharyngeal: Pharynx without any erythema edema. Tongue is midline without deviation. Buccal mucosa is moist without any masses or lesions NECK: Supple without any masses. Trachea midline no deviation. No JVD, no bruits are appreciated CARDIAC: Regular rhythm, regular rate. S1/S2 are heard. No murmurs gallops or rubs. LUNGS: Clear to auscultation bilaterally. No wheeze, rhonchi or rales. No use of accessory muscles on inspiration or expiration. ABDOMEN: Soft, nontender. Nondistended. Bowel sounds heard in all 4 quadrants. No organomegaly or masses. Negative rebound, negative guarding EXTREMITIES: No edema, pulses are equal bilaterally. No cyanosis or clubbing NEUROLOGY: Mood and affect appear appropriate. Cranial nerves II through XII grossly intact. Muscle strength 5/5 in upper and lower extremities bilaterally. Deep tendon reflexes are 2+ in upper and lower extremities bilaterally. Results - Labs CBC & Chem 7: 03/02/18 21:20 03/02/18 21:20 Labs: Laboratory Results - last 24 hr 03/02/18 03/02/18 03/02/18 21:20 21:20 21:20 CBC w Diff Auto diff final WBC 6.3 RBC 4.90 Hgb 14.8 Hct 41.6 MCV 84.9 MCH 30.2 MCHC 35.5 RDW 11.4 L Plt Count 239 MPV 9.1 Neut % (Auto) 50.1 Lymph % (Auto) 36.5 [place] % (Auto) 10.1 H Eos % (Auto) 2.5 Baso % (Auto) 0.8 Neut # (Auto) 3.0 Lymph # (Auto) 2.3 [place] # (Auto) 0.6 Eos # (Auto) 0.2 Baso # (Auto) 0.1 WBC Differential . Differential Comment . PT 10.3 INR 1.0 APTT 28.0 Sodium 137 Potassium 3.5 Chloride 104 Carbon Dioxide 26.3 Anion Gap 7 BUN 14 Creatinine 1.10 Estimated GFR 73 L Random Glucose 122 H Calcium 8.3 L Magnesium 2.2 Total Bilirubin 0.6 AST 23 ALT 47 Alkaline Phosphatase 87 Total Creatine Kinase Troponin I Less than 0.02 L Total Protein 7.6 Albumin 4.1 03/03/18 03/03/18 00:10 03:20 CBC w Diff WBC RBC Hgb Hct MCV MCH MCHC RDW Plt Count MPV Neut % (Auto) Lymph % (Auto) [place] % (Auto) Eos % (Auto) Baso % (Auto) Neut # (Auto) Lymph # (Auto) [place] # (Auto) Eos # (Auto) Baso # (Auto) WBC Differential Differential Comment PT INR APTT Sodium Potassium Chloride Carbon Dioxide Anion Gap BUN Creatinine Estimated GFR Random Glucose Calcium Magnesium Total Bilirubin AST ALT Alkaline Phosphatase Total Creatine Kinase 138 80 Troponin I 0.04 0.04 Total Protein Albumin - Imaging Impressions Chest X-Ray 03/02/18 21:14 CONCLUSION: No evidence of acute cardiopulmonary disease. Caprini VTE Risk Assessment Caprini VTE Risk Assessment: No/Low Risk (score <= 1) Caprini Risk Assessment Model: Point Value = 1 Point Value = 2 Point Value = 3 Point Value = 5 Age 41-60 Minor surgery BMI > 25 kg/m2 Swollen legs Varicose veins or History of unexplained or recurrent spontaneous Oral contraceptives or hormone replacement Sepsis (< 1 month) Serious lung disease, including pneumonia (< 1 month) Abnormal pulmonary function Acute myocardial infarction Congestive heart failure (< 1 month) History of inflammatory bowel disease Medical patient at bed rest Age 61-74 Arthroscopic surgery Major open surgery (> 45 min) Laparoscopic surgery (> 45 min) Malignancy Confined to bed (> 72 hours) Immobilizing plaster cast Central venous access Age >= 75 History of VTE Family history of VTE Factor V Leiden Prothrombin [id number] Lupus anticoagulant Anticardiolipin antibodies Elevated serum homocysteine Heparin-induced thrombocytopenia Other congenital or acquired thrombophilia Stroke (< 1 month) Elective arthroplasty Hip, pelvis, or leg fracture Acute spinal cord injury (< 1 month) Prophylaxis Regimen: Total Risk Factor Score Risk Level Prophylaxis Regimen 0-1 Low Early ambulation 2 Moderate Order ONE of the following: *Sequential Compression Device (SCD) *Heparin 5000 units SQ BID 3-4 Higher Order ONE of the following medications: *Heparin 5000 units SQ TID *Enoxaparin/Lovenox 40 mg SQ daily (WT < 150 kg, CrCl > 30 mL/min) *Enoxaparin/Lovenox 30 mg SQ daily (WT < 150 kg, CrCl > 10-29 mL/min) *Enoxaparin/Lovenox 30 mg SQ BID (WT < 150 kg, CrCl > 30 mL/min) AND/OR *Sequential Compression Device (SCD) 5 or more Highest Order ONE of the following medications: *Heparin 5000 units SQ TID (Preferred with Epidurals) *Enoxaparin/Lovenox 40 mg SQ daily (WT < 150 kg, CrCl > 30 mL/min) *Enoxaparin/Lovenox 30 mg SQ daily (WT < 150 kg, CrCl > 10-29 mL/min) *Enoxaparin/Lovenox 30 mg SQ BID (WT < 150 kg, CrCl > 30 mL/min) AND *Sequential Compression Device (SCD) Assessment and Plan - Assessment (1) Chest pain Code(s): R07.9 - Chest pain, unspecified Status: Acute - Plan Chest pain, possible acute coronary syndrome -Patient with persistent typical chest pain heaviness/pressure with radiation to the neck, shoulder with associated shortness of breath, diaphoresis -Patient carries diagnosis of severe hypertrophic cardiomyopathy, history of tobacco use, family history of heart disease -Serial cardiac enzymes were performed which were unremarkable -Serial EKGs have significant abnormalities with ST elevations, T wave abnormalities, Q waves. This could be secondary to his hypertrophic cardiomyopathy, however in light of the patient having continued and active chest pain, very concerning the patient having acute coronary syndrome -We will obtain additional cardiac enzymes, EKG -Obtain lipid panel -We will start cardioprotection with aspirin, nitroglycerin, beta-vangie, statin, heparin IV -Discussed with Dr. Siegel, who spoke with the ER physician last night concerning the case. He indicated the patient needs to be transferred to the main hospital for further evaluation. DVT prevention -Heparin IV
[2018-03-03 09:58] LABS: INR 1.1 Ratio; Prothrombin Time 10.7 sec (9.8-11.6)
[2018-03-03 10:04] LABS: Creatine Kinase 115 U/L (39-308)
[2018-03-03 10:05] LABS: Troponin I 0.03 ng/mL (0.02-0.05)
[2018-03-03 10:17] LABS: Creatine Kinase MB 2.7 ng/mL (0.5-3.6)
[2018-03-03] MEDS: Metoprolol Tartrate 25 MG Tablet PO SCH ×2 (10:49→21:49)
--- NOTE | 2018-03-03 12:19 | ECG ---
Date Performed: 03/03/2018 Time Performed: 09:26:06 PTAGE: 43 years EKG: SINUS BRADYCARDIA POSSIBLE RIGHT VENTRICULAR CONDUCTION DELAY POSSIBLE INFERIOR MYOCARDIAL INFARCTION Cannot rule out Brugada ABNORMAL ECG No significant change from prior electrocardiogram. PREVIOUS TRACING : 03/03/2018 03.13 DOCTOR: Randy Nieto Interpretating Date/Time 03/03/2018 12:18:20
--- NOTE | 2018-03-03 13:47 | MB ---
cc: Chiki Siegel MD DATE: 03/03/2018 REASON FOR CONSULTATION: Chest pain, history of hypertrophic obstructive cardiomyopathy. HISTORY OF PRESENT ILLNESS: The patient is a 43-year-old white male, followed by Dr. Fuad Pena in the [place] [facility], with a history of hypertrophic obstructive cardiomyopathy, Mehrdad syndrome, who was in his usual state of health up until yesterday when he began to experience left upper chest discomfort described as a "cramp." The discomfort has waxed and waned throughout the night and into this morning. There has been no associated shortness of breath, nausea, or diaphoresis. The chest discomfort does seem to radiate to his left neck and left upper arm. Yesterday while lying down, he believes he also had a syncopal episode of unclear duration. When he regained consciousness, there was no confusion or disorientation. There was no bowel or urinary incontinence. Three weeks ago, he had another syncopal episode after climbing steps, lasting approximately 2-3 seconds. He did have some preceding lightheadedness. He also reports a near-syncopal episode approximately 02/19/2018, lasting a few seconds. The patient denies pedal edema, palpitations. He does report occasional paroxysmal nocturnal dyspnea. According to the patient, his secondary history teacher has been considering him for septal alcohol ablation versus septal myomectomy. According to the patient, he is also being considered for implantation of a defibrillator. PAST MEDICAL HISTORY: As above. No other details currently available. PAST SURGICAL HISTORY: 1. Bilateral hernia. 2. Vasectomy. 3. Bilateral patellar surgeries. CARDIAC MEDICATIONS AT HOME: Metoprolol tartrate. ALLERGIES: TRAMADOL, CODEINE, FENTANYL, ACETAMINOPHEN. FAMILY HISTORY: There is no significant family history of early myocardial infarction. His father does have atrial fibrillation. SOCIAL HISTORY: The patient quit smoking about 5 years ago. He denies drug or alcohol abuse. REVIEW OF SYSTEMS: As in the history of present illness. Otherwise, negative or noncontributory. He also denies headache, abdominal pain, melena, dyspepsia, bright red blood per rectum, cough, fevers. PHYSICAL EXAMINATION: VITAL SIGNS: His blood pressure 154/76 with a pulse of 60, respirations 18. GENERAL: He is a well-developed, well-nourished white male, in no acute distress. NECK: Jugular venous pressure is normal. Carotid pulses are 2+ bilaterally and without bruits. CHEST: Clear lungs soriano. CARDIAC: He has a regular rhythm and rate with a grade 2/6 systolic ejection murmur heard along the left sternal border. It does appear to increase with the Valsalva maneuver. No definite gallop is audible. ABDOMEN: He has a soft, nontender abdomen. Bowel sounds are present. There is no definite hepatosplenomegaly. EXTREMITIES: No clubbing, cyanosis or edema. Peripheral pulses are normal throughout. LABORATORY DATA: EKG shows sinus rhythm, voltage criteria for left ventricular hypertrophy, lateral T-wave abnormality, cannot rule out ischemia. Chest x-ray shows no acute disease. LABORATORY DATA: Normal CBC, normal basic metabolic profile except for glucose 122. Negative cardiac enzymes. IMPRESSION: Chest pain in this 43-year-old white male, apparently with a history of severe hypertrophic obstructive cardiomyopathy, followed at the [facility], being considered by his secondary history teacher for septal myomectomy versus septal wall alcohol ablation. Despite prolonged constant chest discomfort since last night, cardiac enzymes are negative for myocardial infarction. EKG changes are overall nonspecific. Clinical suspicion for pulmonary embolism is low. Some of his symptoms are suggestive of angina. Also of concern are his episodes of syncope and near syncope in the past 8 weeks. He certainly may be having ventricular tachyarrhythmias causing loss of consciousness. RECOMMENDATIONS: 1. In light of his severe hypertrophic obstructive cardiomyopathy and need for either surgical or percutaneous intervention in the future, I have overall recommended he undergo cardiac catheterization for most definitive evaluation of his coronary anatomy. 2. With his recurrent near-syncopal and syncopal episodes, we will consult Dr. Juanita Montenegro. 3. Check a 2-D echo to assess his hypertrophic obstructive cardiomyopathy. His exam is actually not entirely consistent with severe left ventricular outflow tract obstruction. MD YANNI Leach/kiana , 01:24 PM , 01:35 PM [facility]ENTER[facility]anni
[2018-03-03] MEDS: Morphine Inj 4 MG/ML Vial IV.PUSH PRN ×2 (14:30→21:51)
[2018-03-03 14:45] LABS: Chol/HDL Ratio 5.41 Ratio; HDL Cholesterol 30.3 mg/dL (40.0-60.0)
[2018-03-03] MEDS ORDERED: Heparin 10,000 UNITS/10 ML Vial (for IV use) IV.PUSH PRN (15:11)
[2018-03-03] MEDS: Heparin 10,000 UNITS/10 ML Vial (for IV use) IV.PUSH PRN ×2 (17:08→23:31)
[2018-03-04] MEDS: Heparin Drip 25,000 UNIT/250 ML BAG IV.CONT PRN (01:26)
[2018-03-04 07:39] LABS: Hematocrit 38.7 % (39.0-51.0); Hemoglobin 13.6 gm/dL (13.0-17.0); Mean Corpuscular HGB Conc 35.2 % (32.0-36.0); Mean Corpuscular Hemoglobin 30.5 pg (27.0-34.0); Mean Corpuscular Volume 86.7 fL (80.0-100.0); Mean Platelet Volume 8.8 fL (7.0-11.0); Platelet Count 189 th/mm3 (150-450); Red Blood Count 4.46 mil/mm3 (4.50-5.90); White Blood Count 5.2 th/mm3 (4.0-11.0)
[2018-03-04] MEDS ORDERED: Sod Chloride 0.9% Inj 1,000 ML IV.CONT SCH (08:00)
[2018-03-04] MEDS: Morphine Inj 4 MG/ML Vial IV.PUSH PRN ×2 (08:30→21:57)
[2018-03-04] MEDS: Metoprolol Tartrate 25 MG Tablet PO SCH ×2 (08:30→20:57)
[2018-03-04] MEDS: Aspirin 325 MG Tablet PO SCH (08:30)
--- NOTE | 2018-03-04 10:51 | P.PNIM ---
Subjective Interval history: The patient was resting in bed comfortably. He said that he felt like he had a leg cramp in his heart. He was waiting for the echo to be done. He said he was scheduled for a catheterization this afternoon. He had no other acute complaints. Physical Exam Vital signs: Vital Signs 03/03/18 12:00 03/03/18 13:59 03/03/18 14:15 Temperature 97.4 F L 97.7 F Pulse Rate 54 L Respiratory Rate 20 18 Blood Pressure 133/66 156/87 H 150/78 H Pulse Oximetry 96 97 03/03/18 15:00 03/03/18 17:45 03/03/18 18:00 Temperature 97.9 F Pulse Rate 52 L 67 60 Respiratory Rate 16 Blood Pressure 146/75 H Pulse Oximetry 98 03/03/18 19:00 03/03/18 20:00 03/03/18 21:00 Temperature 97.4 F L Pulse Rate 66 74 60 Respiratory Rate 16 Blood Pressure 134/80 Pulse Oximetry 98 03/03/18 22:00 03/03/18 23:00 03/04/18 00:00 Temperature Pulse Rate 54 L 61 54 L Respiratory Rate 16 Blood Pressure 127/73 Pulse Oximetry 98 03/04/18 01:00 03/04/18 02:00 03/04/18 03:00 Temperature Pulse Rate 66 56 L 61 Respiratory Rate Blood Pressure Pulse Oximetry 03/04/18 04:00 03/04/18 05:00 03/04/18 06:00 Temperature Pulse Rate 54 L 56 L 62 Respiratory Rate 16 Blood Pressure 126/71 Pulse Oximetry 98 03/04/18 07:00 03/04/18 08:00 03/04/18 10:24 Temperature 98.7 F Pulse Rate 73 74 Respiratory Rate 17 17 Blood Pressure 143/77 H Pulse Oximetry 97 Intake & Output 03/03/18 03/04/18 03/04/18 18:59 06:59 18:59 Intake Total 2800 / 2800 490 / 490 Output Total 1650 / 1650 700 / 700 Balance 1150 / 1150 -210 / -210 Weight 116 kg 115.9 kg Intake: IV 1000 / 1000 250 / 250 Heparin/D5W 25,000 U/250 mL 25, 250 / 250 000 unit In 250 ml @ Per Protocol 10 mls/hr IV.CONT TITRATE PRN Rx#:[id number] NS Inj 1,000 ML @ 100 mls/hr IV 1000 / 1000 .CONT .Q10H AD[facility] Rx#:[id number] Oral 1800 / 1800 240 / 240 Output: Urine 1650 / 1650 700 / 700 Other: Date of Last Bowel Movement 03/02/18 03/02/18 # Bowel Movements 0 Narrative: GENERAL: Well-developed, well-nourished, in no acute distress. HEENT: Head is normocephalic. Facial features are symmetric. Pupils equal round reactive to light. Extraocular muscles are intact. NECK: Supple without any masses. Trachea midline no deviation. No JVD, no bruits are appreciated. CARDIAC: Regular rhythm, regular rate. S1/S2 are heard. Systolic murmur appreciated. LUNGS: Clear to auscultation bilaterally. No wheeze, rhonchi or rales. No use of accessory muscles on inspiration or expiration. ABDOMEN: Soft, nontender. Nondistended. Bowel sounds heard in all 4 quadrants. No organomegaly or masses. Negative rebound, negative guarding. EXTREMITIES: No edema, pulses are equal bilaterally. No cyanosis or clubbing. NEUROLOGY: Cranial nerves II through XII grossly intact. Muscle strength 5/5 in upper and lower extremities bilaterally. Results - Labs CBC & Chem 7: 03/04/18 06:47 03/02/18 21:20 Laboratory Results - last 24 hr 03/03/18 03/03/18 03/03/18 09:22 16:10 22:48 WBC RBC Hgb Hct MCV MCH MCHC RDW Plt Count MPV APTT 30.3 30.2 Triglycerides 179 H Cholesterol 164 LDL Cholesterol, Calc 98 HDL Cholesterol 30.3 L Cholesterol/HDL Ratio 5.41 03/04/18 03/04/18 06:37 06:47 WBC 5.2 RBC 4.46 L Hgb 13.6 Hct 38.7 L MCV 86.7 MCH 30.5 MCHC 35.2 RDW 12.0 Plt Count 189 MPV 8.8 APTT 30.9 Triglycerides Cholesterol LDL Cholesterol, Calc HDL Cholesterol Cholesterol/HDL Ratio Assessment and Plan - Assessment (1) Chest pain Code(s): R07.9 - Chest pain, unspecified Status: Acute - Plan Chest pain/HOCM -Patient with persistent typical chest pain heaviness/pressure with radiation to the neck, shoulder with associated shortness of breath, diaphoresis. Patient carries diagnosis of severe hypertrophic cardiomyopathy, history of tobacco use , family history of heart disease. Serial cardiac enzymes were performed which were unremarkable. EKG shows sinus rhythm, voltage criteria for left ventricular hypertrophy, lateral T-wave abnormality, cannot rule out ischemia. -We will continue cardioprotection with aspirin, nitroglycerin, beta-vangie, statin, heparin IV -echo pending. -cardiology consult appreciated. Catheterization scheduled later today. EP consult pending. -pain control as needed. Constipation Likely exacerbated by morphine. -bowel regimen. DVT prevention -Heparin IV
[2018-03-04] MEDS ORDERED: Heparin/NS PF Inj 500 ML ONE (13:00)
[2018-03-04] MEDS ORDERED: Heparin 10,000 UNITS/10 ML Vial (for IV use) ONE (13:01)
[2018-03-04] MEDS ORDERED: Lidocaine PF 1% Inj 30 ML Vial ONE (13:39)
[2018-03-04] MEDS ORDERED: fentaNYL Citrate Inj 100 MCG/2 ML Ampul ONE (14:07)
--- NOTE | 2018-03-04 14:24 | CATHPROC ---
[place] HIS Report Study Information Study Number Admission Scheduled Start Study Start [id number] Mar 02 2018 10:40PM 03/04/2018 Mar 04 2018 1:16PM [facility] Service Cardiac Catheterization Admit Source Facility Department Other [facility] - Snuff Grinder And Screener Physician and Clinical Staff Initial Chiki Perez Pick And Shovel Worker Karina Munoz,RN Recorder Megan Montalvo ,RT(R) Scrub Ginny Almonte RCIS TECH2 Procedures Performed Procedure Location (Site) Vessel Name Angiogram LV LV Ventricle Coronary Angiograms LCA Left Coronary Coronary Angiograms RCA Right Coronary L Heart Cath Equipment Time Carriage Rider Description Size Mfg Part Number Used/Scraped TRANSDUCER, TRUWAVE [id number] 13:36 WALSH DUGGAN * Used W/STOCKCOCK *[id number] *[id number] [id number] *[id number] 13:36 MALLINCKRODT SYRINGE, ANGIOMAT 150ML 150ML *[id number] Used 2SUB MEDICAL CONCEPT DRAPE, RADIAL FEMORAL FULL 13:36 * [id number] *[id number] Used DEVELOPMENT BODY [id number] 13:36 [employer] BLANKET,WARM AIR CCL * Used *[id number] 13:36 [employer] PACK, CCL CUSTOM * Used *[id number] 13:36 [employer] SUPPORT, ARTERIAL ADULT 25204 *[id number] Used [id number] 13:36 Fibroblast PACER PEN, SKIN DUAL W/ RULER * Used *[id number] BAND, RADIAL COMPRESSION TR [id number] 14:15 Notch 29CM Used LARGE 29 *[id number] SHEATH, FR6 RADIAL PRELUDE 13:36 Notch FR 6 [id number] Used EASE 11CM [id number] 13:36 Notch WIRE, EXCHANGE 260CM 3MMJ 260CM Used *[id number] 13:36 NAMIC MANIFOLD, 4 PORT * Used *[id number] 14:05 NAMIC TUBING, HIGH PRESSURE 48" 48" Used *[id number] 13:36 NYCOMED OMNIPAQUE, 350 MG, 150ML 150ML [id number] Used CATHETER, FR5 OPTITORQUE [id number] 13:48 TERUMO [employer] FR 5 Used RADIAL TIG 4.0 *[id number] SHEATH, FR6 TRANSRADIAL [id number] 13:55 [employer] FR 6 Used SLENDER 10CM *[id number] History: Allergies Allergy Reaction codeine VOMITING hydrocodone VOMITING acetaminophen VOMITING tramadol NIGHTMARE Fentanyl patch "Eats my flesh off" History: Risk Factors Family History of Hypertension Dyslipidemia Previous OR Previous Heart Failure Premature CAD No No No No No Prior Valve Prior PCI Prior CABG Surgery No No No Cerebrovascular Peripheral Artery Chronic Lung On Dialysis Diabetes Disease Disease Disease No No No No No History: Other Current Smoker Method Quit Packs a Day Years Used Pack Years No Cigarettes 5 Years Ago 05 15 22 Labs Hgb (g/dl) Hct (%) WBC (l/cumm) Platelets (thousands) 11.60-17.00 35.00-51.00 4.00-11.00 150.00-450.00 13.6 38.7 5.2 189 Glucose (mg/dl) BUN (mg/dl) Creatinine (mg/dl) BUN:Creatinine (1:x) 74.00-106.00 7.00-18.00 0.50-1.30 10.00-20.00 122 14 1.1 12.7 Na (meq/l) K (meq/l) 136.00-145.00 3.50-5.10 137 3.5 INR (PTT:PT) 0.90-1.10 1.1 Troponin I (ng/ml) CPK-MB (ng/ML) 0.02-0.05 0.50-3.60 0.03 Not Drawn Medication Medication Total Dose (Bolus/Oral) Medication Total Dosage/Unit 1% XYLOCAINE 5 mL FENTANYL 50 mcg RADIAL COCKTAIL 5 mL (Bolus) VERSED 1 mg Medications (Bolus/Oral) Medication Time Given Dosage/Unit Administered By Reason 1% XYLOCAINE 03/04/2018 1:53:27 PM 5 mL Chiki Siegel 5 mL 1% XYLOCAINE given in lab by Chiki Siegel in Right Radial via Subcutaneous. Ordered by Prashant Siegel enn. VERSED 03/04/2018 1:55:00 PM 1 mg Karina Munoz 1 mg VERSED given in lab by Karina Munoz, GARCIA via Peripheral IV. Ordered by Chiki Siegel. Ntg 200mcg Verapamil 2.5mg Heparin RADIAL COCKTAIL 03/04/2018 1:55:52 PM 5 mL (Bolus) Chiki Siegel 2500U 5 mL (Bolus) RADIAL COCKTAIL given in lab by Chiki Siegel via Radial. Using [Solution Name]. Ordered by Chiki Siegel. Reason: Ntg 200mcg Heparin 2500U. FENTANYL 03/04/2018 2:08:00 PM 50 mcg Karina Munoz 50 mcg FENTANYL given in lab by Karina Munoz RN via Peripheral IV. Ordered by Chiki Siegel. Medication (Drip) Medication Time Given Dosage/Unit Concentration/Unit Diluent (ml) Solution IV Solutions 03/04/2018 1:35:13 PM 50 mL (IV) NaCl .9 Patient arrived on IV Solutions via Peripheral IV. Pump/Drip Flow using NaCl .9. Initial Case Assessment Cardiovascular HR NIBP 61 135/75 Edema Present Skin color Skin None Normal Warm Dry Circulatory - Right Pulses Dorsalis Pedis Femoral Radial 1 2 2 Scale (0,1,2,3,4,d) Circulatory - Left Pulses Dorsalis Pedis Femoral Radial 1 2 Scale (0,1,2,3,4,d) Neurological State Oriented to time-place- Alert Moves all extremities person Respiration - General Respiration Rate SpO2 (%) (B/min) 11 99 Final Case Assessment Cardiovascular HR NIBP 61 119/73 Edema Present Skin color Skin None Normal Warm Dry Circulatory - Right Pulses Dorsalis Pedis Femoral Radial 1 2 2 Scale (0,1,2,3,4,d) Circulatory - Left Pulses Dorsalis Pedis Femoral Radial 1 2 Scale (0,1,2,3,4,d) Neurological State Oriented to time-place- Alert Moves all extremities person Respiration - General Respiration Rate SpO2 (%) (B/min) 11 99 Chronological Log Time Study Chronological Log 13:24:37 Patient arrived via Bed. 13:24:37 Patient Name, D.O.B, / Armband Verified By R.N. Vitals capture started with the following parameters, Patient=Adult, Interval=5 min, Initial Pr dtzmmm=617 mmHg, 13:34:27 Deflation Rate=5 mmHg, Cuff placed on Left Arm 13:35:01 Consent signed by the physician and the patient and verified by the Snuff Grinder And Screener staff. 13:35:02 Pre-op and post- op instructions given; patient acknowledges understanding of instructions. 13:35:04 Allens test performed on the right radial and ulnar artery. Right 13:35:05 Immediate Presedation assesment performed by physician. 13:35:06 HR=62 bpm, QJIB=275/75 mmhg, SpO2=99.0 %, Resp=9 B/min, Pain=0, Pattie=10, Ramírez=2 13:35:06 Patient has been NPO for More than 6Hrs. 13:35:06 Skin Breakdown- none per patient 13:35:08 Patient Warmer Placed on the Table. 13:35:10 Muriel Prominences Protected 13:35:12 A # 20 IV was noted in the Forearm (right). Grade = 0 13:35:13 Patient arrived on IV Solutions via Peripheral IV. Pump/Drip Flow using NaCl .9. 13:35:14 History and physical on the chart or being dictated. Assessment: Initial Case, HR=61 BPM, KTRK=240/75 mmhg, Edema=None, Color=Normal, Skin = Warm, D ry Right Pulses: Everette Ped=1, Femoral=2, Radial=2 13:35:15 Left Pulses: Everette Ped=1, Femoral=2 Neurological: State=Alert, Ox3, VEGA Respiration: Resp=11 B/min, SpO2=99 % 13:38:27 Right Radial and groin(s) prepped with 2% chlorhexidine, and draped after a 3 min. waiting time. 13:40:07 HR=62 bpm, PFIF=142/71 mmhg, SpO2=98.0 %, Resp=22 B/min, Pain=0, Pattie=10, Ramírez=2 13:43:10 MD paged 13:43:37 MD responded 13:43:51 Pressure channel 1 zeroed. 13:45:06 HR=62 bpm, IXKN=922/73 mmhg, SpO2=98.0 %, Resp=10 B/min 13:47:28 Reference ECG taken 13:48:25 MD arrived. 13:50:05 HR=61 bpm, OCGG=154/74 mmhg, SpO2=98.0 %, Resp=15 B/min Time Out. Correct patient, correct procedure, correct physician, labs, allergies, and equipment verified with concrete plant laborer 13:52:47 team present. Fire risk assesment completed (see hard stop sheet for coding). Time Out Conc urred by MD and individual staff in procedure. 13:53:25 Case Start 13:53:27 5 mL 1% XYLOCAINE given in lab by Chiki Siegel in Right Radial via Subcutaneous. Ordered by Chiki Siegel. 13:54:55 Access site was Right Radial Artery . 13:55:00 1 mg VERSED given in lab by Karina Munoz, RN via Peripheral IV. Ordered by Chiki Siegel . 13:55:08 HR=60 bpm, FMGB=142/69 mmhg, SpO2=97.0 %, Resp=11 B/min A SHEATH, FR6 TRANSRADIAL SLENDER 10CM FR 6 was advanced into the Radial (right) using the Perc utaneous 13:55:12 technique. 5 mL (Bolus) RADIAL COCKTAIL given in lab by Chiki Siegel via Radial. Using [Solution Name]. Or dered by Christal 13:55:52 Chiki. Reason: Ntg 200mcg Heparin 2500U. A CATHETER, FR5 OPTITORQUE RADIAL TIG 4.0 FR 5 was advanced over a wire. OMNIPAQUE, 350 MG, 150 ML 150ML 13:56:25 was used for injections. 13:59:31 The RCA was injected and visualized at various angles. OMNIPAQUE, 350 MG, 150ML 150ML used . 14:00:07 HR=70 bpm, HYBC=440/70 mmhg, SpO2=95.0 %, Resp=14 B/min After removing the current catheter a JL 3.5 INFINITI CATHETER FR 6 was advanced over a WIRE, E XCHANGE 260CM 14:00:16 3MMJ 260CM. Recorded Pressure: Ao, HR=67, Condition=Condition 1 14:01:42 (Aorta) Ao 97/65/79 14:01:53 The LCA was injected and visualized at various angles. OMNIPAQUE, 350 MG, 150ML 150ML used . After removing the current catheter a PIGTAIL STR INFINITI CATHETER FR 6 was advanced over a WI RE, EXCHANGE 14:03:46 260CM 3MMJ 260CM. 14:05:08 HR=69 bpm, VDPP=828/57 mmhg, SpO2=96.0 %, Resp=13 B/min 14:08:00 50 mcg FENTANYL given in lab by Karina Munoz, RN via Peripheral IV. Ordered by Tania Siegel. Recorded Pressure: LV, HR=64, Condition=Condition 1 14:08:20 (Left Ventricle) LV 123/8/32 14:08:47 The LV was injected at 12 cc/sec for a total of 42. OMNIPAQUE, 350 MG, 150ML 150ML used. 14:10:05 HR=61 bpm, OHLM=114/73 mmhg, SpO2=98.0 %, Resp=14 B/min, Pain=0, Pattie=10, Ramírez=2 Recorded Pressure: LV, HR=70, Condition=Condition 1 14:10:20 (Left Ventricle) LV 117/10/31 Recorded Pressure: LV, Ao, HR=61, Condition=Condition 1 14:10:30 (Left Ventricle) LV 122/10/30, (Aorta) Ao 88/9/41 Recorded Pressure: LV, Ao, HR=66, Condition=Condition 1 14:10:45 (Left Ventricle) LV 95/10/34, (Aorta) Ao 103/66/82 14:13:21 Case End (Physician broke scrub) Assessment: Final Case, HR=61 BPM, RPVI=336/73 mmhg, Edema=None, Color=Normal, Skin = Warm, D ry Right Pulses: Everette Ped=1, Femoral=2, Radial=2 14:13:27 Left Pulses: Everette Ped=1, Femoral=2 Neurological: State=Alert, Ox3, VEGA Respiration: Resp=11 B/min, SpO2=99 % 14:13:40 Catheter(s) removed without difficulty Radial Compression Device Used. 13 mLs of air placed in BAND, RADIAL COMPRESSION TR LARGE 29 29CM. Affected 14:13:43 hand ~O2 SATURATION~ % O2 saturation. 14:13:48 Sterile dressing applied to site 14:13:49 No case complications noted. 14:13:50 Cine recording checked. 14:13:50 Bedside Report will be given. 14:13:53 A Left Heart Cath was performed. 14:15:06 HR=60 bpm, LKFH=018/70 mmhg, SpO2=97.0 %, Resp=13 B/min 14:18:35 Patient moved to stretcher End Study - Contrast Media Used In Study Contrast Total Opened (mL) Total Used (mL) Total Wasted (mL) Omnipaque 100 100 0 End Study - Maximum Contrast Load Max Contrast Load (mL) 526.9 End Study - Radiation Exposure Fluoro Time (minutes) 6.2 End Study - Sheaths Sheaths Pulled By Sheath Hold Time (min) Ginny Almonte End Study - Patient Disposition Complications Transferred To Interventional Outcome No Telemetry Bed No attempt made
--- NOTE | 2018-03-04 14:30 | P.PNCA ---
Subjective Interval history: Chest pain overall better. No dyspnea, syncope, palpitations. Medications and Allergies Active Medications: Active Medications Alprazolam (Xanax) 0.25 mg PO Q8H PRN PRN Reason: ANXIETY Aspirin (Aspirin) 325 mg PO DAILY [facility] Last Admin: 03/04/18 08:30 Dose: 325 mg Atorvastatin Calcium (Lipitor) 20 mg PO DAILY [facility] Last Admin: 03/04/18 08:30 Dose: 20 mg Diphenhydramine HCl (Benadryl) 50 mg PO [facility] Stop: 03/07/18 13:29 Heparin Sodium (Porcine) (Heparin Inj) 2,500 units IV.PUSH UNSCH PRN PRN Reason: aPTT 25-39 Last Admin: 03/03/18 23:31 Dose: 2,500 units Heparin Sodium (Porcine) (Heparin Inj) 5,000 units IV.PUSH UNSCH PRN PRN Reason: aPTT < 25 Sodium Chloride (Ns Inj) 1,000 mls @ 100 mls/hr IV.CONT .Q10H [facility] Metoprolol Tartrate (Lopressor) 12.5 mg PO BID [facility] Last Admin: 03/04/18 08:30 Dose: 12.5 mg Midazolam HCl (Versed Inj) 1 mg IV.PUSH [facility] Stop: 03/07/18 13:29 Miscellaneous (Pill Splitter) 1 each OTHER UNSCH PRN PRN Reason: SEE LABEL COMMENTS Morphine Sulfate (Morphine Inj) 4 mg IV.PUSH Q3H PRN PRN Reason: CHEST PAIN Last Admin: 03/04/18 08:30 Dose: 4 mg Sodium Chloride (Ns Flush) 2 ml IV.FLUSH BID [facility] Last Admin: 03/04/18 08:31 Dose: 2 ml Sodium Chloride (Ns Flush) 2 ml IV.FLUSH PRN PRN PRN Reason: FLUSH AFTER USING IV ACCESS Sodium Chloride (Ns Flush) 2 ml IV.FLUSH PRN PRN PRN Reason: FLUSH AFTER USING IV ACCESS Sodium Chloride (Ns Flush) 2 ml IV.FLUSH BID [facility] Allergies Allergy/AdvReac Type Severity Reaction Status Date / Time tramadol AdvReac Intermediate NIGHTMARE Verified 03/02/18 22:50 acetaminophen AdvReac Mild VOMITING Verified 03/02/18 22:50 codeine AdvReac Mild VOMITING Verified 03/02/18 22:50 Fentanyl patch AdvReac Severe "Eats my Uncoded 03/02/18 21:16 flesh off" Home Medications Medication Instructions Recorded Confirmed Type Unable to Obtain Home Meds 03/03/18 03/03/18 History Physical Exam Vital signs: Vital Signs 03/03/18 15:00 03/03/18 17:45 03/03/18 18:00 Temperature 97.9 F Pulse Rate 52 L 67 60 Respiratory Rate 16 Blood Pressure 146/75 H Pulse Oximetry 98 03/03/18 19:00 03/03/18 20:00 03/03/18 21:00 Temperature 97.4 F L Pulse Rate 66 74 60 Respiratory Rate 16 Blood Pressure 134/80 Pulse Oximetry 98 03/03/18 22:00 03/03/18 23:00 03/04/18 00:00 Temperature Pulse Rate 54 L 61 54 L Respiratory Rate 16 Blood Pressure 127/73 Pulse Oximetry 98 03/04/18 01:00 03/04/18 02:00 03/04/18 03:00 Temperature Pulse Rate 66 56 L 61 Respiratory Rate Blood Pressure Pulse Oximetry 03/04/18 04:00 03/04/18 05:00 03/04/18 06:00 Temperature Pulse Rate 54 L 56 L 62 Respiratory Rate 16 Blood Pressure 126/71 Pulse Oximetry 98 03/04/18 07:00 03/04/18 08:00 03/04/18 09:00 Temperature 98.7 F Pulse Rate 73 70 68 Respiratory Rate 17 Blood Pressure 143/77 H Pulse Oximetry 97 03/04/18 10:00 03/04/18 10:24 03/04/18 11:00 Temperature Pulse Rate 70 60 Respiratory Rate 17 Blood Pressure Pulse Oximetry 03/04/18 12:00 03/04/18 12:02 Temperature 98.9 F Pulse Rate 60 Respiratory Rate 17 Blood Pressure 145/84 H Pulse Oximetry 97 97 Intake & Output 03/03/18 03/04/18 03/04/18 18:59 06:59 18:59 Intake Total 2800 / 2800 490 / 490 Output Total 1650 / 1650 700 / 700 Balance 1150 / 1150 -210 / -210 Weight 116 kg 115.9 kg Intake: IV 1000 / 1000 250 / 250 Heparin/D5W 25,000 U/250 mL 25, 250 / 250 000 unit In 250 ml @ Per Protocol 10 mls/hr IV.CONT TITRATE PRN Rx#:[id number] NS Inj 1,000 ML @ 100 mls/hr IV 1000 / 1000 .CONT .Q10H ADAMARIS Rx#:[id number] Oral 1800 / 1800 240 / 240 Output: Urine 1650 / 1650 700 / 700 Other: Date of Last Bowel Movement 03/02/18 03/02/18 03/04/18 # Bowel Movements 0 - Constitutional no acute distress - Routine Neck Exam Absent: JVD - Routine Respiratory Exam Present: CTA bilaterally - Routine Cardiovascular Exam Present: RRR, S1, S2, murmur. Absent: gallop Comments: II/ systolic murmur along LSB. - Routine Abdominal Exam Present: soft, normoactive bowel sounds. Absent: tenderness, organomegaly - Routine Extremities Exam Absent: cyanosis, clubbing, edema Results 03/04/18 06:47 03/02/18 21:20 Cardiac Enzymes 03/02/18 03/03/18 03/03/18 Range/Units 21:20 00:10 03:20 AST 23 (15-37) U/L CK-MB (CK-2) (0.5-3.6) ng/mL Troponin I Less than 0.02 L 0.04 0.04 (0.02-0.05) ng/mL 03/03/18 Range/Units 09:22 AST (15-37) U/L CK-MB (CK-2) 2.7 (0.5-3.6) ng/mL Troponin I 0.03 (0.02-0.05) ng/mL Coagulation 03/02/18 03/03/18 03/03/18 Range/Units 21:20 09:22 16:10 PT 10.3 10.7 (9.8-11.6) sec APTT 28.0 28.0 30.3 (23.4-31.7) sec 03/03/18 03/04/18 Range/Units 22:48 06:37 PT (9.8-11.6) sec APTT 30.2 30.9 (23.4-31.7) sec Lipids 03/03/18 Range/Units 09:22 Triglycerides 179 H (42-150) mg/dL Cholesterol 164 (120-200) mg/dL HDL Cholesterol 30.3 L (40.0-60.0) mg/dL Cholesterol/HDL Ratio 5.41 Ratio CBC 03/02/18 03/04/18 Range/Units 21:20 06:47 WBC 6.3 5.2 (4.0-11.0) th/mm3 RBC 4.90 4.46 L (4.50-5.90) mil/mm3 Hgb 14.8 13.6 (13.0-17.0) gm/dL Hct 41.6 38.7 L (39.0-51.0) % Plt Count 239 189 (150-450) th/mm3 Neut # (Auto) 3.0 (1.8-7.7) th/mm3 Lymph # (Auto) 2.3 (1.0-4.8) th/mm3 [place] # (Auto) 0.6 (0.0-0.9) th/mm3 Eos # (Auto) 0.2 (0.0-0.4) th/mm3 Baso # (Auto) 0.1 (0.0-0.2) th/mm3 Comprehensive Metabolic Panel 03/02/18 Range/Units 21:20 Sodium 137 (136-145) meq/L Potassium 3.5 (3.5-5.1) meq/L Chloride 104 (98-107) meq/L Carbon Dioxide 26.3 (21.0-32.0) meq/L BUN 14 (7-18) mg/dL Creatinine 1.10 (0.60-1.30) mg/dL Calcium 8.3 L (8.5-10.1) mg/dL AST 23 (15-37) U/L ALT 47 (12-78) U/L Alkaline Phosphatase 87 (45-117) U/L Total Protein 7.6 (6.4-8.2) g/dL Albumin 4.1 (3.4-5.0) g/dL Intake and Output 03/03/18 03/04/18 03/04/18 22:59 06:59 14:59 Intake Total 2320 / 2320 490 / 490 Output Total 1050 / 1050 700 / 700 Balance 1270 / 1270 -210 / -210 Intake: IV 1000 / 1000 250 / 250 Heparin/D5W 25,000 U/250 mL 25, 250 / 250 000 unit In 250 ml @ Per Protocol 10 mls/hr IV.CONT TITRATE PRN Rx#:[id number] NS Inj 1,000 ML @ 100 mls/hr IV 1000 / 1000 .CONT .Q10H ADAMARIS Rx#:[id number] Oral 1320 / 1320 240 / 240 Output: Urine 1050 / 1050 700 / 700 Other: Date of Last Bowel Movement 03/02/18 03/02/18 03/04/18 # Bowel Movements 0 Weight 115.9 kg - Imaging and Cardiology Imaging: Impressions Chest X-Ray 03/02/18 21:14 CONCLUSION: No evidence of acute cardiopulmonary disease. Assessment and Plan - Assessment (1) Chest pain Code(s): R07.9 - Chest pain, unspecified Status: Acute Plan: Stable overnight. Minimal CAD on cath today. Left ventricular outflow tract gradient by cath at least does not appear to be severe. (2) Hypertrophic obstructive cardiomyopathy Code(s): I42.1 - Obstructive hypertrophic cardiomyopathy Status: Chronic Plan: Stable. Minimal CAD on cath today. Echo pending. Left ventricular outflow tract gradient by cath at least does not appear to be severe (30 mm Hg). No further syncope. Monitoring uneventful. Await Dr. Montenegro's input. - Plan Code Status: full code Discussed Condition With: patient and family (1) Chest pain Qualifiers: Chest pain type: unspecified Qualified Code(s): R07.9 - Chest pain, unspecified
--- NOTE | 2018-03-04 15:22 | MA ---
cc: Chiki Siegel MD DATE: 03/04/2018 PROCEDURES: Left heart catheterization, selective coronary angiography, left ventriculography. PROCEDURE NOTES: The patient was brought to the cardiac catheterization laboratory in a fasting state after having signed informed consent. The right radial region was prepped and draped as per policy and anesthetized with 1% lidocaine. Arterial access was obtained via the right radial artery and a 6-Luxembourgish sheath was placed. Coronary arteriography was performed using a Du left 3.5 and [place] catheter for the right coronary. Left ventriculography was done using a standard 6-Luxembourgish pigtail. There were no apparent immediate complications. A radial artery compression band was applied to his right wrist at the end of the case to achieve good hemostasis. HEMODYNAMIC DATA: [place] of the left ventricle systolic 110. Mid ventricle systolic 110. Across the left ventricular outflow tract systolic 80. Aorta 103/66 with a mean of 82. CORONARY ARTERIOGRAPHY: The left main is normal. The left anterior descending is a large vessel giving rise to a large diagonal. A 20% stenosis is seen in the proximal diagonal. Otherwise, the LAD system is normal. The left circumflex is a fairly large vessel giving rise to a large obtuse marginal. No disease is seen in the left circumflex system. The right coronary artery is a very large, dominant vessel with minimal luminal irregularities distally. LEFT VENTRICULOGRAPHY: Contrast injection of the left ventricle reveals no segmental wall motion abnormalities. Ejection fraction is estimated at 65%. CONCLUSIONS: 1. Minimal coronary artery disease. 2. Normal left ventricular function with estimated ejection fraction of 65%. 3. Left ventricular outflow tract gradient of approximately 30 mmHg, consistent with the patient's history of hypertrophic obstructive cardiomyopathy. Also of note, left ventricular and aortic pressure tracings demonstrate Brockenbrough-Braunwald sign. Chiki Siegel MD GHYen/josé miguel , 02:19 PM , 02:25 PM MTDD
--- NOTE | 2018-03-04 18:08 | ECHRPT ---
Indication: SYNCOPE CONCLUSIONS Normal left ventricular size. Severe left ventricular hypertrophy more prominent in the septum. The left ventricular systolic function is normal with an estimated ejection fraction in the range of 60-65%. The left atrial size is mwgv-xb-bnvusszajn dilated. Juye-om-ytsglqrp mitral valve regurgitation. Aortic valve calcification. There is mild tricuspid valve regurgitation. The estimated pulmonary arterial pressure is 33 mmHg. BP: / HR: Rhythm: MEASUREMENTS (Male / Female) Normal Values Technical Quality: 2D ECHO LV Diastolic Diameter PLAX 4.2 cm 4.2 - 5.9 / 3.9 - 5.3 cm LV Systolic Diameter PLAX 2.6 cm IVS Diastolic Thickness 2.4 cm 0.6 - 1.0 / 0.6 - 0.9 cm LVPW Diastolic Thickness 1.8 cm 0.6 - 1.0 / 0.6 - 0.9 cm LV Relative Wall Thickness 1.0 RV Internal Dim ED PLAX 2.5 cm LVOT Diameter 2.3 cm Aortic Root Diameter 2.7 cm LA Systolic Diameter LX 5.1 cm 3.0 - 4.0 / 2.7 - 3.8 cm LV Ejection Fraction MOD BP 62.0 % >= 55 % LV Ejection Fraction MOD 4C 54.2 % LV Ejection Fraction 4C AL 55.1 % LV Ejection Fraction MOD 2C 68.9 % LV Ejection Fraction 2C AL 68.8 % M-MODE Aortic Root Diameter MM 3.9 cm LA Systolic Diameter MM 5.4 cm LA Ao Ratio MM 1.4 AV Cusp Separation MM 2.7 cm DOPPLER AV Peak Velocity 275.0 cm/s AV Peak Gradient 30.3 mmHg AV Mean Gradient 13.5 mmHg AV Velocity Time Integral 52.0 cm LVOT Peak Velocity 125.0 cm/s LVOT Peak Gradient 6.3 mmHg LVOT Velocity Time Integral 22.2 cm AV Area Cont Eq vti 1.8 cm AV Area Cont Eq pk 1.9 cm Mitral E Point Velocity 63.7 cm/s Mitral A Point Velocity 62.2 cm/s Mitral E to A Ratio 1.0 LV E' Lateral Velocity 6.6 cm/s Mitral E to LV E' Lateral Ratio 9.6 LV E' Septal Velocity 6.8 cm/s Mitral E to LV E' Septal Ratio 9.3 TR Peak Velocity 239.0 cm/s TR Peak Gradient 22.8 mmHg Right Atrial Pressure 10.0 mmHg Pulmonary Artery Systolic Pressu 32.8 mmHg Right Ventricular Systolic Press 32.8 mmHg PV Peak Velocity 92.8 cm/s PV Peak Gradient 3.4 mmHg FINDINGS LEFT VENTRICLE Normal left ventricular size. Severe LVH more prominent in the septum. The left ventricular systolic function is normal with an estimated ejection fraction in the range of 60-65%. RIGHT VENTRICLE Normal right ventricular size and systolic function. LEFT ATRIUM The left atrial size is wizn-ii-wmshlouqht dilated. RIGHT ATRIUM The right atrial size is normal. ATRIAL SEPTUM Normal atrial septal thickness without atrial level shunting by limited color doppler interrogation. AORTA The aortic root and proximal ascending aorta are normal in size on limited imaging. MITRAL VALVE Ytwd-fp-ntpwoypr mitral valve regurgitation. AORTIC VALVE Aortic valve calcification. TRICUSPID VALVE There is mild tricuspid valve regurgitation. The estimated pulmonary arterial pressure is 33 mmHg. PULMONARY VALVE No pulmonary valve regurgitation or stenosis. VESSELS The inferior vena cava is normal in size. PERICARDIUM No pericardial effusion. Pola Reardon MD, FACC (Electronically Signed) Final Date:04 March 2018 18:07
[2018-03-04] MEDS: Sod Chloride 0.9% Inj 1,000 ML IV.CONT SCH (20:58)
[2018-03-05] MEDS: Sod Chloride 0.9% Inj 1,000 ML IV.CONT SCH ×3 (03:22→22:33)
[2018-03-05 08:33] LABS: Hematocrit 42.2 % (39.0-51.0); Hemoglobin 14.4 gm/dL (13.0-17.0); Mean Corpuscular HGB Conc 34.1 % (32.0-36.0); Mean Corpuscular Hemoglobin 30.1 pg (27.0-34.0); Mean Corpuscular Volume 88.1 fL (80.0-100.0); Mean Platelet Volume 8.9 fL (7.0-11.0); Platelet Count 188 th/mm3 (150-450); Red Blood Count 4.79 mil/mm3 (4.50-5.90); Red Cell Distribution Width 12.1 % (11.6-17.2); White Blood Count 5.3 th/mm3 (4.0-11.0)
[2018-03-05] MEDS: Metoprolol Tartrate 25 MG Tablet PO SCH ×2 (08:39→20:41)
[2018-03-05] MEDS: Aspirin 325 MG Tablet PO SCH (08:40)
[2018-03-05 08:49] LABS: Calcium 8.4 mg/dL (8.5-10.1); Carbon Dioxide 28.2 meq/L (21.0-32.0); Magnesium 2.1 mg/dL (1.5-2.5); Potassium 4.1 meq/L (3.5-5.1)
--- NOTE | 2018-03-05 09:19 | P.PNCA ---
Subjective Interval history: Still with 3/10 left sided chest "cramp", constant, no change with inspiration or position changes. No dyspnea, dizziness, near syncope. Medications and Allergies Active Medications: Active Medications Alprazolam (Xanax) 0.25 mg PO Q8H PRN PRN Reason: ANXIETY Aspirin (Aspirin) 325 mg PO DAILY [facility] [place] Last Admin: 03/05/18 08:40 Dose: 325 mg Atorvastatin Calcium (Lipitor) 20 mg PO DAILY [facility] [place] Last Admin: 03/05/18 08:40 Dose: 20 mg Diphenhydramine HCl (Benadryl) 50 mg PO [employer] [facility] [place] Stop: 03/07/18 13:29 Heparin Sodium (Porcine) (Heparin Inj) 2,500 units IV.PUSH UNSCH PRN PRN Reason: aPTT 25-39 Last Admin: 03/03/18 23:31 Dose: 2,500 units Heparin Sodium (Porcine) (Heparin Inj) 5,000 units IV.PUSH UNSCH PRN PRN Reason: aPTT < 25 Sodium Chloride (Ns Inj) 1,000 mls @ 100 mls/hr IV.CONT .Q10H [facility] [place] Last Admin: 03/05/18 03:22 Dose: Not Given Metoprolol Tartrate (Lopressor) 12.5 mg PO BID [facility] [place] Last Admin: 03/05/18 08:39 Dose: 12.5 mg Midazolam HCl (Versed Inj) 1 mg IV.PUSH [employer] [facility] [place] Stop: 03/07/18 13:29 Miscellaneous (Pill Splitter) 1 each OTHER UNSCH PRN PRN Reason: SEE LABEL COMMENTS Morphine Sulfate (Morphine Inj) 4 mg IV.PUSH Q3H PRN PRN Reason: CHEST PAIN Last Admin: 03/04/18 21:57 Dose: 4 mg Sodium Chloride (Ns Flush) 2 ml IV.FLUSH PRN PRN PRN Reason: FLUSH AFTER USING IV ACCESS Sodium Chloride (Ns Flush) 2 ml IV.FLUSH BID [facility] [place] Last Admin: 03/05/18 08:40 Dose: 2 ml Allergies Allergy/AdvReac Type Severity Reaction Status Date / Time tramadol AdvReac Intermediate [place] Verified 03/02/18 22:50 acetaminophen AdvReac Mild VOMITING Verified 03/02/18 22:50 codeine AdvReac Mild VOMITING Verified 03/02/18 22:50 Fentanyl patch AdvReac Severe "Eats my Uncoded 03/02/18 21:16 flesh off" Home Medications Medication Instructions Recorded Confirmed Type Unable to Obtain Home Meds 03/03/18 03/03/18 History Physical Exam Vital signs: Vital Signs 03/04/18 10:00 03/04/18 10:24 03/04/18 11:00 Temperature Pulse Rate 70 60 Respiratory Rate 17 Blood Pressure Pulse Oximetry 03/04/18 12:00 03/04/18 12:02 03/04/18 14:00 Temperature 98.9 F Pulse Rate 60 71 Respiratory Rate 17 Blood Pressure 145/84 H Pulse Oximetry 97 97 03/04/18 14:21 03/04/18 15:00 03/04/18 16:00 Temperature 98.6 F 98.7 F Pulse Rate 69 70 61 Respiratory Rate 18 17 Blood Pressure 140/76 140/79 Pulse Oximetry 97 98 03/04/18 18:00 03/04/18 18:06 03/04/18 19:00 Temperature 98.4 F Pulse Rate 61 74 74 Respiratory Rate 17 Blood Pressure 144/80 H Pulse Oximetry 97 03/04/18 20:00 03/04/18 20:58 03/04/18 21:00 Temperature 98.9 F Pulse Rate 66 70 Respiratory Rate 18 Blood Pressure 146/74 H Pulse Oximetry 97 97 03/04/18 22:00 03/04/18 23:00 03/05/18 00:00 Temperature 98.2 F Pulse Rate 75 72 75 Respiratory Rate 16 18 Blood Pressure 147/83 H Pulse Oximetry 98 03/05/18 01:00 03/05/18 02:00 03/05/18 03:00 Temperature Pulse Rate 75 72 74 Respiratory Rate 16 Blood Pressure Pulse Oximetry 03/05/18 04:00 03/05/18 05:00 03/05/18 06:00 Temperature 98.5 F Pulse Rate 68 59 L 62 Respiratory Rate 16 Blood Pressure 141/69 H Pulse Oximetry 98 03/05/18 07:00 03/05/18 09:14 Temperature Pulse Rate 57 L Respiratory Rate Blood Pressure Pulse Oximetry 96 Intake & Output 03/04/18 03/05/18 03/05/18 18:59 06:59 18:59 Intake Total 600 / 600 720 / 720 Balance 600 / 600 720 / 720 Weight 116 kg Intake: Oral 600 / 600 720 / 720 Other: # Voids 2 Date of Last Bowel Movement 03/04/18 03/04/18 # Bowel Movements 2 - Constitutional no acute distress - Routine Neck Exam Absent: JVD - Routine Respiratory Exam Present: CTA bilaterally - Routine Cardiovascular Exam Present: RRR, S1, S2, murmur. Absent: gallop Comments: II-III/ LAMBERT along left sternal border - Routine Abdominal Exam Present: soft, normoactive bowel sounds. Absent: tenderness, organomegaly - Routine Extremities Exam Absent: cyanosis, clubbing, edema Results 03/05/18 07:14 03/05/18 07:14 Cardiac Enzymes 03/03/18 Range/Units 09:22 CK-MB (CK-2) 2.7 (0.5-3.6) ng/mL Troponin I 0.03 (0.02-0.05) ng/mL Coagulation 03/03/18 03/03/18 03/03/18 Range/Units 09:22 16:10 22:48 PT 10.7 (9.8-11.6) sec APTT 28.0 30.3 30.2 (23.4-31.7) sec 03/04/18 Range/Units 06:37 PT (9.8-11.6) sec APTT 30.9 (23.4-31.7) sec Lipids 03/03/18 Range/Units 09:22 Triglycerides 179 H (42-150) mg/dL Cholesterol 164 (120-200) mg/dL HDL Cholesterol 30.3 L (40.0-60.0) mg/dL Cholesterol/HDL Ratio 5.41 Ratio CBC 03/04/18 03/05/18 Range/Units 06:47 07:14 WBC 5.2 5.3 (4.0-11.0) th/mm3 RBC 4.46 L 4.79 (4.50-5.90) mil/mm3 Hgb 13.6 14.4 (13.0-17.0) gm/dL Hct 38.7 L 42.2 (39.0-51.0) % Plt Count 189 188 (150-450) th/mm3 Comprehensive Metabolic Panel 03/05/18 Range/Units 07:14 Sodium 142 (136-145) meq/L Potassium 4.1 (3.5-5.1) meq/L Chloride 106 (98-107) meq/L Carbon Dioxide 28.2 (21.0-32.0) meq/L BUN 15 (7-18) mg/dL Creatinine 0.98 (0.60-1.30) mg/dL Calcium 8.4 L (8.5-10.1) mg/dL Intake and Output 03/04/18 03/05/18 03/05/18 22:59 06:59 14:59 Intake Total 600 / 600 720 / 720 Balance 600 / 600 720 / 720 Intake: Oral 600 / 600 720 / 720 Other: # Voids 2 Date of Last Bowel Movement 03/04/18 03/04/18 # Bowel Movements 2 Weight 116 kg Assessment and Plan - Assessment (1) Hypertrophic obstructive cardiomyopathy Code(s): I42.1 - Obstructive hypertrophic cardiomyopathy Status: Chronic Plan: Stable. Minimal CAD on cath. Reportedly severe LVH more prominent at basal septum on echo. Left ventricular outflow tract gradient by cath at least does not appear to be severe (30 mm Hg). No further syncope. Monitoring uneventful except for brief episode of atrial tachycardia. Await Dr. Montenegro's input. (2) Chest pain Code(s): R07.9 - Chest pain, unspecified Status: Acute Plan: Stable overnight. Constant atypical CP persists. Minimal CAD on cath. Left ventricular outflow tract gradient by cath at least does not appear to be severe though reportedly severe LVH more prominent at basal septum on echo. - Plan Code Status: full code Discussed Condition With: patient (2) Chest pain Qualifiers: Chest pain type: unspecified Qualified Code(s): R07.9 - Chest pain, unspecified
--- NOTE | 2018-03-05 11:12 | P.PNIM ---
Subjective Interval history: The patient had no acute complaints. He said that he was talking to his shingle weaver on the phone and he was making plans for possible MRI of the heart versus surgery. He was waiting to speak with the metal temperer. Physical Exam Vital signs: Vital Signs 03/04/18 12:00 03/04/18 12:02 03/04/18 14:00 Temperature 98.9 F Pulse Rate 60 71 Respiratory Rate 17 Blood Pressure 145/84 H Pulse Oximetry 97 97 03/04/18 14:21 03/04/18 15:00 03/04/18 16:00 Temperature 98.6 F 98.7 F Pulse Rate 69 70 61 Respiratory Rate 18 17 Blood Pressure 140/76 140/79 Pulse Oximetry 97 98 03/04/18 18:00 03/04/18 18:06 03/04/18 19:00 Temperature 98.4 F Pulse Rate 61 74 74 Respiratory Rate 17 Blood Pressure 144/80 H Pulse Oximetry 97 03/04/18 20:00 03/04/18 20:58 03/04/18 21:00 Temperature 98.9 F Pulse Rate 66 70 Respiratory Rate 18 Blood Pressure 146/74 H Pulse Oximetry 97 97 03/04/18 22:00 03/04/18 23:00 03/05/18 00:00 Temperature 98.2 F Pulse Rate 75 72 75 Respiratory Rate 16 18 Blood Pressure 147/83 H Pulse Oximetry 98 03/05/18 01:00 03/05/18 02:00 03/05/18 03:00 Temperature Pulse Rate 75 72 74 Respiratory Rate 16 Blood Pressure Pulse Oximetry 03/05/18 04:00 03/05/18 05:00 03/05/18 06:00 Temperature 98.5 F Pulse Rate 68 59 L 62 Respiratory Rate 16 Blood Pressure 141/69 H Pulse Oximetry 98 03/05/18 07:00 03/05/18 08:00 03/05/18 09:14 Temperature 98.6 F Pulse Rate 57 L 63 Respiratory Rate 18 Blood Pressure 130/78 Pulse Oximetry 98 96 Intake & Output 03/04/18 03/05/18 03/05/18 18:59 06:59 18:59 Intake Total 600 / 600 720 / 720 Balance 600 / 600 720 / 720 Weight 116 kg Intake: Oral 600 / 600 720 / 720 Other: # Voids 2 Date of Last Bowel Movement 03/04/18 03/04/18 03/04/18 # Bowel Movements 2 Narrative: GENERAL: Well-developed, well-nourished, in no acute distress. HEENT: Head is normocephalic. Facial features are symmetric. Pupils equal round reactive to light. Extraocular muscles are intact. NECK: Supple without any masses. Trachea midline no deviation. No JVD, no bruits are appreciated. CARDIAC: Regular rhythm, regular rate. S1/S2 are heard. Systolic murmur appreciated. LUNGS: Clear to auscultation bilaterally. No wheeze, rhonchi or rales. No use of accessory muscles on inspiration or expiration. ABDOMEN: Soft, nontender. Nondistended. Bowel sounds heard in all 4 quadrants. No organomegaly or masses. Negative rebound, negative guarding. EXTREMITIES: No edema, pulses are equal bilaterally. No cyanosis or clubbing. NEUROLOGY: Cranial nerves II through XII grossly intact. Muscle strength 5/5 in upper and lower extremities bilaterally. Results - Labs CBC & Chem 7: 03/05/18 07:14 03/05/18 07:14 Laboratory Results - last 24 hr 03/05/18 03/05/18 07:14 07:14 WBC 5.3 RBC 4.79 Hgb 14.4 Hct 42.2 MCV 88.1 MCH 30.1 MCHC 34.1 RDW 12.1 Plt Count 188 MPV 8.9 Sodium 142 Potassium 4.1 Chloride 106 Carbon Dioxide 28.2 Anion Gap 8 BUN 15 Creatinine 0.98 Estimated GFR 83 L Random Glucose 95 Calcium 8.4 L Magnesium 2.1 Assessment and Plan - Assessment (1) Chest pain Code(s): R07.9 - Chest pain, unspecified Status: Acute - Plan Chest pain/HOCM -Patient with persistent typical chest pain heaviness/pressure with radiation to the neck, shoulder with associated shortness of breath, diaphoresis. Patient carries diagnosis of severe hypertrophic cardiomyopathy, history of tobacco use , family history of heart disease. Serial cardiac enzymes were performed which were unremarkable. EKG shows sinus rhythm, voltage criteria for left ventricular hypertrophy, lateral T-wave abnormality, cannot rule out ischemia. S /p cardiac cath 03/04 which showed minimal CAD. Reportedly severe LVH more prominent at basal septum on echo. Left ventricular outflow tract gradient by cath at least does not appear to be severe (30 mm Hg). -We will continue cardioprotection with aspirin, nitroglycerin, beta-vangie, statin, heparin IV -EP consult pending. -pain control as needed. -telemetry. Hypertension Well controlled at this time. -Continue Lopressor. Constipation Likely exacerbated by morphine. -bowel regimen. DVT prevention: Heparin IV (1) Chest pain Qualifiers: Chest pain type: unspecified Qualified Code(s): R07.9 - Chest pain, unspecified
[2018-03-05] MEDS ORDERED: Chlorhexidine Gluconate 2% 1 Pack (2 Cloths) TOPICAL SCH (13:00)
[2018-03-05] MEDS ORDERED: Mupirocin 2% Nasal Oint Topical Syringe EACH NARE SCH (13:00)
--- NOTE | 2018-03-05 17:19 | MB ---
cc: Juanita Montenegro MD,Chiki Berg,Juanita Kaiser MD DATE: 03/05/2018 REASON FOR CONSULTATION: Hypertrophic obstructive cardiomyopathy and syncopal episode. HISTORY OF PRESENT ILLNESS: Mr. Irene is a 43-year-old gentleman previously seen at the [facility] for ____. Apparently, there was a thought of septal ablation or myectomy. This gentleman was admitted due to syncopal episode. This is not the first syncopal episode. He had one previously on 02/17/2018. During hospitalization, he had a left heart catheterization by Dr. Siegel. I was consulted for evaluation and management. The chart was reviewed. The patient is evaluated. ALLERGIES: TRAMADOL, ACETAMINOPHEN, CODEINE, AND FENTANYL PATCH. SOCIAL HISTORY: Negative for smoking. The patient quit smoking 5 years ago. Drinks occasionally. FAMILY HISTORY: Noncontributory to his current medical condition. MEDS: Currently, this gentleman is on: 1. Alprazolam. 2. Aspirin 325 mg a day. 3. Lipitor 20 mg a day. REVIEW OF SYSTEMS: Currently, the gentleman has no chest pain, no chest discomfort. No vomiting. No fever. PHYSICAL EXAMINATION: GENERAL: Alert, fully oriented, pleasant. VITAL SIGNS: His blood pressure is 148/78, pulse 63, respiratory rate 18. LUNGS: Ventilated. CARDIOVASCULAR: S1, S2. No gallop. No murmur. No rub. ABDOMEN: Soft. No masses. No bruits. EXTREMITIES: No edema. ELECTROCARDIOGRAM: Sinus rhythm, LVH, diffuse ST changes. LABORATORY DATA: Hemoglobin is 14.4, white blood cell 5.3. INR 1.1. Potassium 4.1, creatinine 0.98. Triglycerides 179, total cholesterol 164, HDL 30. ASSESSMENT AND RECOMMENDATIONS: 1. Mr. Irene has a history of ____. [facility]. 2. Echocardiogram report posterior of 24 and septal 18. This gentleman had a syncopal episode. He has no supravalvular occlusion on echo and no gradient in the aortic valve. This gentleman would not be, at this point, a good candidate for myectomy nor septal ablation, but he has syncopal episode. There is a fixed septum and posterior wall, and 2 episodes of syncope. Malignant arrhythmia should be suspected ____. At that point, my recommendation is defibrillator implantation for sudden prevention. I had a long conversation with this gentleman. I will call Dr. Siegel to discuss the case with him. This gentleman would now preferred to have the case done while he is in the hospital. I will follow him on a p.r.n. basis. MD BEHZAD Zhao/coni/rr , 02:38 PM , 02:51 PM
[2018-03-05] MEDS: Morphine Inj 4 MG/ML Vial IV.PUSH PRN ×2 (20:41→23:40)
[2018-03-06] MEDS: Sod Chloride 0.9% Inj 1,000 ML IV.CONT SCH ×4 (08:15→18:27)
[2018-03-06] MEDS: Metoprolol Tartrate 25 MG Tablet PO SCH (08:15)
[2018-03-06] MEDS: Aspirin 325 MG Tablet PO SCH (08:15)
[2018-03-06] MEDS: Morphine Inj 4 MG/ML Vial IV.PUSH PRN ×3 (08:55→21:11)
--- NOTE | 2018-03-06 12:50 | P.PNIM ---
Subjective Interval history: The patient said that he was going for his defibrillator placement this afternoon. He denies any chest cramping sensation. He was hopeful to go home tomorrow afternoon if possible. No acute concerns at this time. Physical Exam Vital signs: Vital Signs 03/05/18 13:00 03/05/18 14:00 03/05/18 15:00 Temperature Pulse Rate 66 64 76 Respiratory Rate Blood Pressure Pulse Oximetry 03/05/18 16:00 03/05/18 17:00 03/05/18 18:00 Temperature 98.7 F Pulse Rate 64 80 72 Respiratory Rate 18 Blood Pressure 150/86 H Pulse Oximetry 97 03/05/18 19:00 03/05/18 19:45 03/05/18 20:00 Temperature 98.4 F Pulse Rate 70 67 Respiratory Rate 18 Blood Pressure 163/83 H Pulse Oximetry 95 98 03/05/18 21:00 03/05/18 22:00 03/05/18 23:00 Temperature Pulse Rate 60 56 L 59 L Respiratory Rate 16 Blood Pressure Pulse Oximetry 03/06/18 00:00 03/06/18 01:00 03/06/18 02:00 Temperature 98.6 F Pulse Rate 59 L 50 L 48 L Respiratory Rate 16 Blood Pressure 144/78 H Pulse Oximetry 98 03/06/18 03:00 03/06/18 04:00 03/06/18 05:00 Temperature 98.4 F Pulse Rate 50 L 50 L 58 L Respiratory Rate 16 16 Blood Pressure 128/66 Pulse Oximetry 99 03/06/18 06:00 03/06/18 06:03 03/06/18 07:00 Temperature Pulse Rate 62 60 Respiratory Rate 18 Blood Pressure Pulse Oximetry 03/06/18 08:00 03/06/18 09:00 03/06/18 09:23 Temperature 98.2 F Pulse Rate 72 56 L Respiratory Rate 20 Blood Pressure 134/78 Pulse Oximetry 96 94 L 03/06/18 10:00 03/06/18 11:00 03/06/18 11:18 Temperature 97.9 F Pulse Rate 61 56 L 50 L Respiratory Rate 20 Blood Pressure 116/51 L Pulse Oximetry 96 03/06/18 12:00 Temperature Pulse Rate 54 L Respiratory Rate Blood Pressure Pulse Oximetry Intake & Output 03/05/18 03/06/18 03/06/18 18:59 06:59 18:59 Intake Total 884 / 884 720 / 720 Balance 884 / 884 720 / 720 Weight 115 kg Intake: Oral 884 / 884 720 / 720 Other: # Voids 5 3 Date of Last Bowel Movement 03/05/18 03/05/18 03/05/18 # Bowel Movements 1 Narrative: GENERAL: Well-developed, well-nourished, in no acute distress. HEENT: Head is normocephalic. Facial features are symmetric. Pupils equal round reactive to light. Extraocular muscles are intact. NECK: Supple without any masses. Trachea midline no deviation. No JVD, no bruits are appreciated. CARDIAC: Regular rhythm, regular rate. S1/S2 are heard. Systolic murmur appreciated. LUNGS: Clear to auscultation bilaterally. No wheeze, rhonchi or rales. No use of accessory muscles on inspiration or expiration. ABDOMEN: Soft, nontender. Nondistended. Bowel sounds heard in all 4 quadrants. No organomegaly or masses. Negative rebound, negative guarding. EXTREMITIES: No edema, pulses are equal bilaterally. No cyanosis or clubbing. NEUROLOGY: Cranial nerves II through XII grossly intact. Muscle strength 5/5 in upper and lower extremities bilaterally. Results - Labs CBC & Chem 7: 03/05/18 07:14 03/05/18 07:14 Assessment and Plan - Assessment (1) Chest pain Code(s): R07.9 - Chest pain, unspecified Status: Acute - Plan Chest pain/HOCM -Patient with persistent typical chest pain heaviness/pressure with radiation to the neck, shoulder with associated shortness of breath, diaphoresis. Patient carries diagnosis of severe hypertrophic cardiomyopathy, history of tobacco use , family history of heart disease. Serial cardiac enzymes were performed which were unremarkable. EKG shows sinus rhythm, voltage criteria for left ventricular hypertrophy, lateral T-wave abnormality, cannot rule out ischemia. S /p cardiac cath 03/04 which showed minimal CAD. Reportedly severe LVH more prominent at basal septum on echo. Left ventricular outflow tract gradient by cath at least does not appear to be severe (30 mm Hg). EP consult appreciated. -We will continue cardioprotection with aspirin, nitroglycerin, beta-vangie, statin, heparin IV -AICD placement scheduled for this afternoon. -pain control as needed. -telemetry. Hypertension Well controlled at this time. -Continue Lopressor. Constipation Likely exacerbated by morphine. Seems resolved. -bowel regimen. DVT prevention: Heparin IV (1) Chest pain Qualifiers: Chest pain type: unspecified Qualified Code(s): R07.9 - Chest pain, unspecified
[2018-03-06] MEDS ORDERED: ceFAZolin 2 GM Premix Inj 2 GM/50 ML PIGGYBACK IV.SIG SCH (14:00)
[2018-03-06] MEDS ORDERED: Vancomycin Inj 1,000 MG in Sodium Chlor 0.9% Inj 250 ML IV.SIG SCH (14:00)
[2018-03-06] MEDS ORDERED: Lidocaine PF 1% Inj 5 ML Syringe OTHER ONE (15:00)
[2018-03-06] MEDS ORDERED: Phenylephrine/NS 1000 MCG/10ML Syringe IV.PUSH ONE (15:00)
--- NOTE | 2018-03-06 16:15 | CATHPROC ---
Patient Name: Fuad Irene Study #: [id number] Initial MD: Chiki Siegel Date of : 1975 Study Date: 03/06/2018 Cardiac Catheterization Report 03/06/2018 4:14:49 PM Financial #: [id number] 1 of 9 Patient Name: Fuad Irene Study #: [id number] Initial MD: Chiki Siegel Date of : 1975 Study Date: 03/06/2018 Entire Case Report Patient Information Patient Name Fuad Irene Date of 1975 Age 43 years Financial # [id number] Gender M AlternateID Lab Number 6 Room Number 245 Height (in) 74.0 Height (cm) 188.0 BSA 2.41 Weight (lbs) 255.1 Weight (kg) 116.0 Patient Address/Phone Number Home Address [facility] Home Phone Number [phone] [facility] [address] [facility] [address] Study Information Study Number Admission Scheduled Start Study Start [id number] Mar 02 2018 10:40PM 03/06/2018 Mar 06 2018 2:52PM [facility] Electrophysiology Study Admit Source Facility Department Other [facility] - Housing Specialist Physician and Clinical Staff Initial Chiki Perez Instrument Calibrator Lita Gudino RN Instrument Calibrator Mikal Giordano,RT(R) Other Anesthesia, WOOD LATHER Recorder Kamilah Cardenas,GARCIA Scrub Cele Heart,RT(R) TECH2 Procedures Performed Procedure Location (Site) Vessel Name Lead Insertion Venogram Hand (left) Extremity Wire insertion Subclav. Vein (Lft Subclavian Vein 03/06/2018 4:14:49 PM Financial #: [id number] 2 of 9 Patient Name: Fuad Irene Study #: [id number] Initial MD: Chiki Siegel Date of : 1975 Study Date: 03/06/2018 Equipment Time Internet Marketing Analyst Description Size Mfg Part Number Used/Scraped DEFIBRILLATOR, INTICA 7 VR-T 15:45 BIOTRONIK VVE-VDDR [id number] Used DX 15:42 BIOTRONIK LEAD, PLEXA PRO-MRI DF 65/ [id number] Used [address] 15:51 DAVOL INC GAIL, HEMOSTAT 1 GRAM Used *[id number] 15:33 Noxilizer BLANKET,WARM AIR CCL * Used *[id number] TP-1103 15:33 Noxilizer SUTURE, STRIP PLUS 1/2" * Used *[id number] 15:33 MEDLINE PACER ADHESIVE, MASTISOL 2/3CC 2/3CC 0523-48 Used 15:33 MEDLINE PACER SEAMAN, LIMB * 2530 *[id number] Used [id number] 15:33 MEDLINE PACER PACK, PACER CUSTOM * Used *[id number] 15:33 MEDLINE PACER PEN, SKIN DUAL W/ RULER * Used *[id number] 15:24 Stylitics PACER SAFE SHEATH, FR8, 13CM FR 8 [id number] Used 15:16 Needle Sponge Count 2 2 Used 15:16 Needle Sponge Count 2 22 Used 15:16 Needle Sponge Count 20 200 Used 15:16 Needle Sponge Count 25 1 Used 15:37 NYCOMED OMNIPAQUE, 350 MG, 50ML 50ML [id number] Used [id number] *[id number] SUTURE, 3-0 VICRYL [SH] ([id number]) SUTURE, 3-0 VICRYL [SH] (HAW480S) SUTURE, 4-0 MONOCRYL [PS2] (Y496G) [facility] PAD, ELECTROSURGICAL 15:33 * [id number] *[id number] Used SURGICAL GROUNDING ORANGE 2170-3665 15:33 [employer]. / * Used *[id number] Equipment Model, Serial, Lot Number and Expiration Data Description Model Number Serial Number Lot Number Expiration Date LEAD, PLEXA PRO-MRI DF [id number] 12-22-2019 Insurance Information Insurance Payor [facility] Third Green Party Third Green Party Number NF [facility] 03/06/2018 4:14:49 PM Financial #: [id number] 3 of 9 Patient Name: Fuad Irene Study #: [id number] Initial MD: Chiki Siegel Date of : 1975 Study Date: 03/06/2018 History: Allergies Allergy Reaction codeine VOMITING hydrocodone VOMITING acetaminophen VOMITING tramadol [place]IGHT[place]ARE Fentanyl patch "Eats my flesh off" History: Risk Factors Family History of Hypertension Dyslipidemia Previous RI Previous Heart Failure Premature CAD No No No No No Prior Valve Prior PCI Prior CABG Surgery No No No Cerebrovascular Peripheral Artery Chronic Lung On Dialysis Diabetes Disease Disease Disease No No No No No History: CV Disease Selection Items Cardiomyopathy hypertrophic History: Other Current Smoker Method Quit Packs a Day Years Used Pack Years No Cigarettes 5 Years Ago 1 23 Labs Hgb (g/dl) Hct (%) WBC (l/cumm) Platelets (thousands) 11.60-17.00 35.00-51.00 4.00-11.00 150.00-450.00 14.4 42.2 5.3 188 Glucose (mg/dl) BUN (mg/dl) Creatinine (mg/dl) BUN:Creatinine (1:x) 74.00-106.00 7.00-18.00 0.50-1.30 10.00-20.00 95 15 1.0 15 Na (meq/l) K (meq/l) 136.00-145.00 3.50-5.10 142 4.1 INR (PTT:PT) 0.90-1.10 1.1 Medication 03/06/2018 4:14:49 PM Financial #: [id number] 4 of 9 Patient Name: Fuad Irene Study #: [id number] Initial MD: Chiki Siegel Date of : 1975 Study Date: 8 Medication Total Dose (Bolus/Oral) Medication Total Dosage/Unit 2% XYLOCAINE 50 mL Medications (Bolus/Oral) Medication Time Given Dosage/Unit Administered By Reason 2% XYLOCAINE 03/06/2018 3:36:59 PM 50 mL Chiki Siegel 50 mL 2% XYLOCAINE given in lab by Chiki Siegel in Left shoulder via Subcutaneous. Ordered by Chiki Siegel. Medication (Drip) Medication Time Given Dosage/Unit Concentration/Unit Diluent (ml) Solution ANCEF 03/06/2018 3:20:17 PM 2 g 2 g ANCEF given in lab by Anesthesia, WOOD LATHER via Peripheral IV. Ordered by Chiki Siegel. Reason: As per physicians verbal order. IV Solutions 03/06/2018 2:55:12 PM 0 mL (IV) NaCl .9 IV Solutions given in lab by Lita Gudino RN in Right Antecubital via Peripheral IV. Pump/Drip Syed w = 30 ml/hr using NaCl .9. Ordered by Chiki Siegel. Reason: As per physicians verbal order. IV Solutions 03/06/2018 3:05:00 PM 0 mL (IV) NaCl .9 IV Solutions given in lab by Lita Gudino RN in Left Hand via Peripheral IV. Pump/Drip Flow = 30 m l/hr using NaCl .9. Ordered by Chiki Siegel. Reason: As per physicians verbal order. VANCOMYCIN DRIP 03/06/2018 3:20:31 PM 1 g 1 g VANCOMYCIN DRIP given in lab by CYNDY Brown via Peripheral IV. Ordered by Chiki Siegel. Reas on: As per physicians verbal order. 03/06/2018 4:14:49 PM Financial #: [id number] 5 of 9 Patient Name: Fuad Irene Study #: [id number] Initial MD: Chiki Siegel Date of : 1975 Study Date: 03/06/2018 Initial Case Assessment Cardiovascular HR NIBP 57 127/75 Edema Present Skin color Skin None Normal Warm Dry Circulatory - Right Pulses Dorsalis Pedis 1 Scale (0,1,2,3,4,d) Circulatory - Left Pulses Dorsalis Pedis 1 Scale (0,1,2,3,4,d) Circulatory - Lower Extremities Color Lower Right Color Lower Left Normal Normal Neurological State Oriented to time-place- Alert Moves all extremities person Respiration - General Respiration Rate SpO2 (%) (B/min) 14 99 Chronological Log Time Study Chronological Log 14:52:23 Patient arrived via Bed. 14:52:24 Patient Name, D.O.B, / Armband Verified By R.N. 14:52:25 Consent signed by the physician and the patient and verified by the Housing Specialist staff. 14:52:25 Pre-op and post- op instructions given; patient acknowledges understanding of instructions. 14:52:30 Patient has been NPO for More than 6Hrs. 14:52:31 Skin Breakdown- none per pt 14:54:42 Patient Warmer Placed on the Table. 14:54:43 Disposable Defibrillator Pads Placed On Patient. 14:54:44 Muriel Prominences Protected 03/06/2018 4:14:49 PM Financial #: [id number] 6 of 9 Patient Name: Fuad Irene Study #: [id number] Initial MD: Chiki Siegel Date of : 1975 Study Date: 03/06/2018 14:54:46 History and physical on the chart or being dictated. 14:54:48 A # 20 IV was noted in the Antecubital (right). Grade = 0 14:55:02 A # 20 IV was noted in the Hand (left). Grade = 0 IV Solutions given in lab by Lita Gudino RN in Right Antecubital via Peripheral IV. Pump/Dr ip Flow = 30 ml/hr using 14:55:12 NaCl .9. Ordered by Chiki Siegel. Reason: As per physicians verbal order. 14:55:33 MD arrived for anesthesia. To be paged when ready to start. 15:00:38 Anesthesia at bedside. Assumes care of patient. IV Solutions given in lab by Lita Gudino RN in Left Hand via Peripheral IV. Pump/Drip Flow = 30 ml/hr using NaCl 15:05:00 .9. Ordered by Chiki Siegel. Reason: As per physicians verbal order. 15:05:15 Bovie ground pad applied to: right thigh Discussed trimming sousa for procedure. Pt states understanding but declines permission to trim . Hair tucked up using 15:10:09 mask- DB Assessment: Initial Case, HR=57 BPM, LITN=590/75 mmhg, Edema=None, Color=Normal, Skin = Warm, D ry Right Pulses: Everette Ped=1 Left Pulses: Everette Ped=1 15:10:11 Lower Right Extremities: Color=Normal Lower Left Extremities: Color=Normal Neurological: State=Alert, Ox3, VEGA Respiration: Resp=14 B/min, SpO2=99 % 15:10:19 2% CHLORHEXIDINE GLUCONATE WASH AND NASAL SWIPE DONE PRIOR TO PROCEDURE. 15:10:20 Table restraints applied according to hospital policy 15:12:25 Reference ECG taken First Sponge And Instrument Count Done by Cele Heart, RT(R) TECH2. 15:14:30 Hypo's: 2, Sponges: 25, Bovie/scratch: 2 Sutures: 6, Blades: 2, Instruments: 26, Syveck Patches: 0 verified by SH 15:15:06 Anesthesiologist present for LMA insertion. 15:15:27 Bilateral Upper Chest Prepped Times Two-SH and DB 2 g ANCEF given in lab by Anesthesia, WOOD LATHER via Peripheral IV. Ordered by Chiki Siegel. Reason: As per physicians 15:20:17 verbal order. 1 g VANCOMYCIN DRIP given in lab by Anesthesia, WOOD LATHER via Peripheral IV. Ordered by Chiki Siegel . Reason: As per 15:20:31 physicians verbal order. 15:25:05 A sterile drape was applied after a 5 minute prep drying time. 15:28:38 MD paged 15:28:42 MD responded 15:30:33 MD arrived. Time Out. Correct patient, procedure, procedure equipment, site and side verified with physicia n present. Time 15:34:11 concurred by MD, individual staff and WOOD LATHER. Time Out #2 - Consents verified, patient in correct position, all results are labled and displa yed, safety precautions 15:35:15 taken, antibiotics administered. Time out concurred by MD, individual staff and WOOD LATHER in procedu re 15:35:18 Case Start 15:36:24 The Hand (left) was manually injected with 20 cc's of contrast. OMNIPAQUE, 350 MG, 50ML 50M L used. 15:36:59 50 mL 2% XYLOCAINE given in lab by Chiki Siegel in Left shoulder via Subcutaneous. Ordered by Chiki Siegel. 15:37:32 Surgical Incision Made. 15:38:06 A pocket was created at the L Upper Chest. 03/06/2018 4:14:49 PM Financial #: [id number] 7 of 9 Patient Name: Fuad Irene Study #: [id number] Initial MD: Chiki Siegel Date of : 1975 Study Date: 03/06/2018 15:39:01 Two dry raytek sponges put into the surgical pocket. 15:39:54 Vascular access was obtained in the Subclav. Vein (Lft. 15:39:56 A wire was inserted via Subclav. Vein (Lft. 15:40:19 A SAFE SHEATH, FR8, 13CM FR 8 was advanced into the Subclav. Vein (Lft using the Cutdown te chnique. 15:41:49 A LEAD, PLEXA PRO-MRI DF 65/15 was inserted and positioned in the RV. 15:42:01 Lead placement verified under fluoroscopy 15:43:30 The RV lead impedance and threshold being tested. 15:45:21 The RV lead was sutured to the fascia. 15:47:56 A DEFIBRILLATOR, INTICA 7 VR-T DX VVE-VDDR was connected and placed in the pocket. 15:49:02 Raytek sponges removed from the surgical pocket. 15:50:50 Gail powder placed in pocket. Second Sponge And Instrument Count Done by Cele Heart, RT(R) TECH2. 15:54:04 Hypo's: 2, Sponges: 25, Bovie/scratch: 2 Sutures: 6, Blades: 2, Instruments: ~INSTRU~, Syveck Patches: 0 verified by SH 15:54:19 The pocket is being closed. 16:00:01 The DFT Failed at 20 Joules. 16:00:08 The DFT was Success at 30 Joules, 69 Ohms lead impedance and 6.2 ms charge time. 16:04:19 Implantable Device card placed in patient's chart. 16:05:56 The pocket was closed. 16:06:33 Case End (Physician broke scrub) Final Sponge And Instrument Count Done by Cele Heart, RT(R) TECH2. 16:07:04 Hypo's: 2, Sponges: 25, Bovie/scratch: 2 Sutures: 6, Blades: 2, Instruments: 26, Syveck Patches: 0 verified byDB 16:09:12 Implant Procedure was performed. 16:10:23 A ICD Implant . (Single) 16:11:27 PACU called. Spoke to Navdeep 16:11:33 Bedside Report will be given. 16:11:44 Steri-strips and a sterile dressing applied to site. 16:11:53 No case complications noted. 16:11:54 Cine recording checked. 16:14:16 LMA removed by anesthesia and supplemental oxygen given via SFM. 16:18:00 Defibrillator and ground pads removed. Skin intact. 16:21:09 A sling was placed on the affected arm. 16:25:22 [facility] condition with WOOD LATHER and tech a ccompanying. 03/06/2018 4:14:49 PM Financial #: [id number] Patient Name: Fuad Irene Study #: [id number] Initial MD: Chiki Siegel Date of : 1975 Study Date: 03/06/2018 End Study - Contrast Media Used In Study Contrast Total Opened (mL) Total Used (mL) Total Wasted (mL) Omnipaque 50 20 30 End Study - Maximum Contrast Load Max Contrast Load (mL) 579.8 End Study - Radiation Exposure Fluoro Time (minutes) 1.5 End Study - Patient Disposition Complications Transferred To No Telemetry Bed 03/06/2018 4:14:49 PM Financial #: [id number]
--- NOTE | 2018-03-06 16:21 | P.PNCA ---
Subjective Interval history: Clinically stable. Still with mild upper chest discomfort. No dyspnea, dizziness. Medications and Allergies Active Medications: Active Medications Alprazolam (Xanax) 0.25 mg PO Q8H PRN PRN Reason: ANXIETY Aspirin (Aspirin) 325 mg PO DAILY [facility] Last Admin: 03/06/18 08:15 Dose: 325 mg Atorvastatin Calcium (Lipitor) 20 mg PO DAILY [facility] Last Admin: 03/06/18 08:15 Dose: 20 mg Chlorhexidine Gluconate (Chlorhexidine 2% Cloth) 3 pack TOPICAL LEATHER CRAFTER [facility] Stop: 03/08/18 12:51 Diphenhydramine HCl (Benadryl) 50 mg PO LEATHER CRAFTER [facility] Stop: 03/07/18 13:29 Heparin Sodium (Porcine) (Heparin Inj) 2,500 units IV.PUSH UNSCH PRN PRN Reason: aPTT 25-39 Last Admin: 03/03/18 23:31 Dose: 2,500 units Heparin Sodium (Porcine) (Heparin Inj) 5,000 units IV.PUSH UNSCH PRN PRN Reason: aPTT < 25 Sodium Chloride (Ns Inj) 1,000 mls @ 100 mls/hr IV.CONT .Q10H [facility] Last Admin: 03/06/18 08:15 Dose: Not Given Cefazolin Sodium/Dextrose (Ancef 2 Gm Premix Inj) 2 gm in 50 mls @ 100 mls/hr IV.SIG LEATHER CRAFTER [facility] Stop: 03/08/18 12:53 Last Admin: 03/06/18 15:20 Dose: 100 mls/hr Vancomycin HCl 1,000 mg/ (Sodium Chloride) 250 mls @ 250 mls/hr IV.SIG LEATHER CRAFTER [facility] Stop: 03/08/18 12:53 Last Admin: 03/06/18 15:20 Dose: 250 mls/hr Sodium Chloride (Ns Inj) 1,000 mls @ 125 mls/hr IV.CONT .Q8H [facility] Last Admin: 03/06/18 09:28 Dose: Not Given Vancomycin HCl 1,000 mg/ (Sodium Chloride) 250 mls @ 250 mls/hr IV.SIG ONCE ONE Stop: 03/07/18 04:59 Metoprolol Tartrate (Lopressor) 12.5 mg PO BID [facility] Last Admin: 03/06/18 08:15 Dose: 12.5 mg Midazolam HCl (Versed Inj) 1 mg IV.PUSH LEATHER CRAFTER [facility] Stop: 03/07/18 13:29 Miscellaneous (Pill Splitter) 1 each OTHER UNSCH PRN PRN Reason: SEE LABEL COMMENTS Morphine Sulfate (Morphine Inj) 4 mg IV.PUSH Q3H PRN PRN Reason: CHEST PAIN Last Admin: 03/06/18 08:55 Dose: 4 mg Mupirocin (Bactroban 2% Nasal Oint) 1 applicatio EACH NARE LEATHER CRAFTER [facility] Stop: 03/08/18 12:51 Povidone Iodine (Betadine 5% Antisepsis Kit) 1 applicatio EACH NARE LEATHER CRAFTER [facility] Stop: 03/08/18 12:51 Sodium Chloride (Ns Flush) 2 ml IV.FLUSH PRN PRN PRN Reason: FLUSH AFTER USING IV ACCESS Sodium Chloride (Ns Flush) 2 ml IV.FLUSH BID [facility] Last Admin: 03/06/18 08:14 Dose: 2 ml Allergies Allergy/AdvReac Type Severity Reaction Status Date / Time tramadol AdvReac Intermediate NIGHTMARE Verified 03/02/18 22:50 acetaminophen AdvReac Mild VOMITING Verified 03/02/18 22:50 codeine AdvReac Mild VOMITING Verified 03/02/18 22:50 Fentanyl patch AdvReac Severe "Eats my Uncoded 03/02/18 21:16 flesh off" Home Medications Medication Instructions Recorded Confirmed Type Unable to Obtain Home Meds 03/03/18 03/03/18 History Physical Exam Vital signs: Vital Signs 03/05/18 17:00 03/05/18 18:00 03/05/18 19:00 Temperature Pulse Rate 80 72 70 Respiratory Rate Blood Pressure Pulse Oximetry 03/05/18 19:45 03/05/18 20:00 03/05/18 21:00 Temperature 98.4 F Pulse Rate 67 60 Respiratory Rate 18 Blood Pressure 163/83 H Pulse Oximetry 95 98 03/05/18 22:00 03/05/18 23:00 03/06/18 00:00 Temperature 98.6 F Pulse Rate 56 L 59 L 59 L Respiratory Rate 16 16 Blood Pressure 144/78 H Pulse Oximetry 98 03/06/18 01:00 03/06/18 02:00 03/06/18 03:00 Temperature Pulse Rate 50 L 48 L 50 L Respiratory Rate 16 Blood Pressure Pulse Oximetry 03/06/18 04:00 03/06/18 05:00 03/06/18 06:00 Temperature 98.4 F Pulse Rate 50 L 58 L 62 Respiratory Rate 16 Blood Pressure 128/66 Pulse Oximetry 99 03/06/18 06:03 03/06/18 07:00 03/06/18 08:00 Temperature 98.2 F Pulse Rate 60 72 Respiratory Rate 18 20 Blood Pressure 134/78 Pulse Oximetry 96 03/06/18 09:00 03/06/18 09:23 03/06/18 10:00 Temperature Pulse Rate 56 L 61 Respiratory Rate Blood Pressure Pulse Oximetry 94 L 03/06/18 11:00 03/06/18 11:18 03/06/18 12:00 Temperature 97.9 F Pulse Rate 56 L 50 L 54 L Respiratory Rate 20 Blood Pressure 116/51 L Pulse Oximetry 96 03/06/18 13:00 03/06/18 14:00 Temperature Pulse Rate 50 L 48 L Respiratory Rate Blood Pressure Pulse Oximetry Intake & Output 03/05/18 03/06/18 03/06/18 18:59 06:59 18:59 Intake Total 884 / 884 720 / 720 Balance 884 / 884 720 / 720 Weight 115 kg Intake: Oral 884 / 884 720 / 720 Other: # Voids 5 3 Date of Last Bowel Movement 03/05/18 03/05/18 03/05/18 # Bowel Movements 1 - Constitutional no acute distress - Routine Neck Exam Absent: JVD - Routine Respiratory Exam Present: CTA bilaterally - Routine Cardiovascular Exam Present: RRR, S1, S2, murmur. Absent: gallop Comments: II/ mid to late systolic murmur along left sternal border, increases after PVC - Routine Abdominal Exam Present: soft, normoactive bowel sounds. Absent: tenderness, organomegaly Results 03/05/18 07:14 03/05/18 07:14 CBC 03/05/18 Range/Units 07:14 WBC 5.3 (4.0-11.0) th/mm3 RBC 4.79 (4.50-5.90) mil/mm3 Hgb 14.4 (13.0-17.0) gm/dL Hct 42.2 (39.0-51.0) % Plt Count 188 (150-450) th/mm3 Comprehensive Metabolic Panel 03/05/18 Range/Units 07:14 Sodium 142 (136-145) meq/L Potassium 4.1 (3.5-5.1) meq/L Chloride 106 (98-107) meq/L Carbon Dioxide 28.2 (21.0-32.0) meq/L BUN 15 (7-18) mg/dL Creatinine 0.98 (0.60-1.30) mg/dL Calcium 8.4 L (8.5-10.1) mg/dL Intake and Output 03/06/18 03/06/18 03/06/18 06:59 14:59 22:59 Intake Total 720 / 720 Balance 720 / 720 Intake: Oral 720 / 720 Other: # Voids 3 Date of Last Bowel Movement 03/05/18 03/05/18 Weight 115 kg Assessment and Plan - Assessment (1) Hypertrophic obstructive cardiomyopathy Code(s): I42.1 - Obstructive hypertrophic cardiomyopathy Status: Chronic Plan: Stable. Minimal CAD on cath. Reportedly severe LVH more prominent at basal septum on echo. Left ventricular outflow tract gradient by cath at least does not appear to be severe (30 mm Hg). No further syncope. Dr. Montenegro's input noted, appreciated. Patient s/p ICD implant today. (2) Chest pain Code(s): R07.9 - Chest pain, unspecified Status: Acute Plan: Stable overnight. Constant atypical CP persists. Minimal CAD on cath. Left ventricular outflow tract gradient by cath at least does not appear to be severe though reportedly severe LVH more prominent at basal septum on echo. Continue beta vangie. - Plan Code Status: full code Discussed Condition With: patient's daughter (2) Chest pain Qualifiers: Chest pain type: unspecified Qualified Code(s): R07.9 - Chest pain, unspecified
[2018-03-06] MEDS ORDERED: fentaNYL Citrate Inj 100 MCG/2 ML Ampul ONE (16:43)
[2018-03-06] MEDS ORDERED: Morphine Inj 4 MG/ML Vial ONE (16:44)
--- NOTE | 2018-03-06 16:53 | XR ---
EXAM DATE: 03/06/2018 4:48 PM EST AGE/SEX: 43 years / Male INDICATIONS: Pneumothorax. CLINICAL DATA: This is the patient's initial encounter. Patient reports that signs and symptoms have been present for 4 - 6 days and indicates a pain score of 0/10. MEDICAL/SURGICAL HISTORY: . Cariomyopathy. . Left shoulder. Bilateral knees. COMPARISON: [facility], CHEST 1V SINGLE AP, 03/02/2018. . FINDINGS: A single AP view of the chest demonstrates the lungs to be symmetrically aerated without evidence of mass, infiltrate or effusion. Left-sided pacemaker seen with single intact lead. No definite pneumoth orax. The cardiomediastinal contours are unremarkable. Osseous structures are intact. CONCLUSION: Left-sided pacemaker. No pneumothorax. Electronically signed by: Keven Storey MD 03/06/2018 4:52 PM EST
--- NOTE | 2018-03-06 17:54 | MP ---
cc: Chiki Siegel MD DATE OF OPERATION: PROCEDURE PERFORMED: Single chamber (with atrial sensing capability) automatic implantable cardioverter defibrillator implantation via the left subclavian vein. INDICATIONS: Severe hypertrophic obstructive cardiomyopathy, prevention of sudden cardiac , history of syncope. OPERATIVE NOTE: The patient was brought to the operating suite in a fasting state after having signed informed consent. The left upper chest was prepped and draped as per policy and anesthetized with 1% lidocaine. After administration of 20 mL of contrast through a left arm peripheral IV, a transverse incision was made inferior to the left clavicle and using blunt dissection, a subcutaneous pocket was formed down to the pectoralis fascia. Using modified Seldinger technique, central venous access was obtained via the left subclavian vein and an 8-Mongolian sheath placed. Through this sheath a ventricular active fixation lead was introduced and its tip positioned in the right ventricular apex where a good current of injury, stimulation threshold (0.3 volts) and sensitivity (4.8 millivolts) were demonstrated. This lead was secured into place using 2-0 silk ties down to the pectoralis fascia. Atrial sensing was also demonstrated to be good. The lead was connected to the ICD generator, which is a Biotronik Intica device. The lead and the generator were placed into the subcutaneous pocket, which was partially closed using 3-0 Vicryl interrupted stitches in 2 layers to close the subcutaneous tissue. Testing of the device was then performed. Ventricular fibrillation was induced. The patient was not rescued by a 20 joule shock. He was rescued successfully with a 30-joule shock after a charge time of 6.5 seconds at a shock impedance of 69 ohms. The pocket was further closed using 4-0 Vicryl running stitch to close the subcuticular tissue. Overlapping Steri-Strips and a pressure dressing were applied. There were no apparent immediate complications. A portable chest x-ray is pending at the time of this dictation. CONCLUSIONS: 1. Successful single chamber (with atrial sensing capability) AICD implantation via the left subclavian vein using a Biotronik Intica AICD generator. 2. Status post AICD defibrillation threshold testing. Chiki Siegel MD [facility]/ , 04:13 PM , 04:19 PM MARY GRACE
[2018-03-06] MEDS: oxyCODONE/Acetaminophen 10/325 Tablet PO PRN (18:26)
[2018-03-07] MEDS: Morphine Inj 4 MG/ML Vial IV.PUSH PRN (02:22)
[2018-03-07] MEDS: Metoprolol Tartrate 25 MG Tablet PO SCH ×2 (02:23→08:09)
[2018-03-07] MEDS: Sod Chloride 0.9% Inj 1,000 ML IV.CONT SCH ×3 (02:23→08:15)
[2018-03-07] MEDS: oxyCODONE/Acetaminophen 10/325 Tablet PO PRN ×2 (03:21→07:57)
[2018-03-07] MEDS ORDERED: Vancomycin Inj 1,000 MG in Sodium Chlor 0.9% Inj 250 ML IV.SIG ONE (04:00)
[2018-03-07 08:05] VITALS: BP 162/87; PULSE 64; RESP 17; TEMP 97.8; O2SAT 98
[2018-03-07] MEDS: Aspirin 325 MG Tablet PO SCH (08:10)
--- NOTE | 2018-03-07 08:12 | P.PNCA ---
Subjective Interval history: Minimal incisional pain. No dyspnea, palpitations, dizziness. Medications and Allergies Active Medications: Active Medications Alprazolam (Xanax) 0.25 mg PO Q8H PRN PRN Reason: ANXIETY Aspirin (Aspirin) 325 mg PO DAILY [facility] Last Admin: 03/06/18 08:15 Dose: 325 mg Atorvastatin Calcium (Lipitor) 20 mg PO DAILY [facility] Last Admin: 03/06/18 08:15 Dose: 20 mg Chlorhexidine Gluconate (Chlorhexidine 2% Cloth) 3 pack TOPICAL GLOBAL CONSUMER SECTOR VICE PRESIDENT [facility] Stop: 03/08/18 12:51 Diphenhydramine HCl (Benadryl) 50 mg PO GLOBAL CONSUMER SECTOR VICE PRESIDENT [facility] Stop: 03/07/18 13:29 Heparin Sodium (Porcine) (Heparin Inj) 2,500 units IV.PUSH UNSCH PRN PRN Reason: aPTT 25-39 Last Admin: 03/03/18 23:31 Dose: 2,500 units Heparin Sodium (Porcine) (Heparin Inj) 5,000 units IV.PUSH UNSCH PRN PRN Reason: aPTT < 25 Sodium Chloride (Ns Inj) 1,000 mls @ 100 mls/hr IV.CONT .Q10H [facility] Last Admin: 03/07/18 02:40 Dose: Not Given Cefazolin Sodium/Dextrose (Ancef 2 Gm Premix Inj) 2 gm in 50 mls @ 100 mls/hr IV.SIG GLOBAL CONSUMER SECTOR VICE PRESIDENT [facility] Stop: 03/08/18 12:53 Last Admin: 03/06/18 15:20 Dose: 100 mls/hr Vancomycin HCl 1,000 mg/ (Sodium Chloride) 250 mls @ 250 mls/hr IV.SIG GLOBAL CONSUMER SECTOR VICE PRESIDENT [facility] Stop: 03/08/18 12:53 Last Admin: 03/06/18 15:20 Dose: 250 mls/hr Sodium Chloride (Ns Inj) 1,000 mls @ 125 mls/hr IV.CONT .Q8H [facility] Last Admin: 03/07/18 02:23 Dose: Not Given Metoprolol Tartrate (Lopressor) 12.5 mg PO BID [facility] Last Admin: 03/07/18 02:23 Dose: 12.5 mg Midazolam HCl (Versed Inj) 1 mg IV.PUSH GLOBAL CONSUMER SECTOR VICE PRESIDENT [facility] Stop: 03/07/18 13:29 Miscellaneous (Pill Splitter) 1 each OTHER UNSCH PRN PRN Reason: SEE LABEL COMMENTS Miscellaneous Information (Mis Nursing Information) 0 each OTHER UNSCH PRN PRN Reason: SEE LABEL COMMENTS Stop: 03/07/18 16:30 Morphine Sulfate (Morphine Inj) 4 mg IV.PUSH Q3H PRN PRN Reason: CHEST PAIN Last Admin: 03/07/18 02:22 Dose: 4 mg Mupirocin (Bactroban 2% Nasal Oint) 1 applicatio EACH NARE GLOBAL CONSUMER SECTOR VICE PRESIDENT [facility] Stop: 03/08/18 12:51 Oxycodone/Acetaminophen (Percocet 10/325 Mg) 1 tab PO Q4H PRN PRN Reason: pain 3-10 Last Admin: 03/07/18 07:57 Dose: 1 tab Povidone Iodine (Betadine 5% Antisepsis Kit) 1 applicatio EACH NARE GLOBAL CONSUMER SECTOR VICE PRESIDENT [facility] Stop: 03/08/18 12:51 Sodium Chloride (Ns Flush) 2 ml IV.FLUSH PRN PRN PRN Reason: FLUSH AFTER USING IV ACCESS Sodium Chloride (Ns Flush) 2 ml IV.FLUSH BID [facility] Last Admin: 03/07/18 02:23 Dose: 2 ml Allergies Allergy/AdvReac Type Severity Reaction Status Date / Time tramadol AdvReac Intermediate [place] Verified 03/02/18 22:50 acetaminophen AdvReac Mild VOMITING Verified 03/02/18 22:50 codeine AdvReac Mild VOMITING Verified 03/02/18 22:50 Fentanyl patch AdvReac Severe "Eats my Uncoded 03/02/18 21:16 flesh off" Home Medications Medication Instructions Recorded Confirmed Type Unable to Obtain Home Meds 03/03/18 03/03/18 History Physical Exam Vital signs: Vital Signs 03/06/18 09:00 03/06/18 09:23 03/06/18 10:00 Temperature Pulse Rate 56 L 61 Respiratory Rate Blood Pressure Pulse Oximetry 94 L 03/06/18 11:00 03/06/18 11:18 03/06/18 12:00 Temperature 97.9 F Pulse Rate 56 L 50 L 54 L Respiratory Rate 20 Blood Pressure 116/51 L Pulse Oximetry 96 03/06/18 13:00 03/06/18 14:00 03/06/18 16:30 Temperature 97.3 F L Pulse Rate 50 L 48 L 67 Respiratory Rate 15 Blood Pressure 131/83 Pulse Oximetry 99 03/06/18 16:45 03/06/18 17:00 03/06/18 17:15 Temperature 97.4 F L Pulse Rate 71 69 67 Respiratory Rate 18 17 15 Blood Pressure 133/88 124/74 147/89 H Pulse Oximetry 97 97 99 03/06/18 17:16 03/06/18 18:00 03/06/18 19:00 Temperature 97.6 F Pulse Rate 80 74 68 Respiratory Rate 20 Blood Pressure 116/71 Pulse Oximetry 99 03/06/18 20:00 03/06/18 21:00 03/06/18 22:00 Temperature 98.5 F Pulse Rate 82 66 70 Respiratory Rate 18 Blood Pressure 116/71 Pulse Oximetry 99 03/06/18 23:00 03/07/18 00:00 03/07/18 01:00 Temperature 98.1 F Pulse Rate 67 67 60 Respiratory Rate 16 Blood Pressure 132/72 Pulse Oximetry 100 03/07/18 02:00 03/07/18 03:00 03/07/18 04:00 Temperature 98.4 F Pulse Rate 64 57 L 57 L Respiratory Rate 18 Blood Pressure 124/73 Pulse Oximetry 100 03/07/18 05:00 03/07/18 06:00 03/07/18 08:02 Temperature 97.8 F Pulse Rate 73 62 64 Respiratory Rate 17 Blood Pressure 162/87 H Pulse Oximetry 98 Intake & Output 03/06/18 03/07/18 03/07/18 18:59 06:59 18:59 Intake Total 240 / 240 1240 / 1240 Output Total 400 / 400 Balance -160 / -160 1240 / 1240 Weight 113.5 kg Intake: Oral 240 / 240 1240 / 1240 Output: Urine 400 / 400 Other: # Voids 4 Date of Last Bowel Movement 03/05/18 03/05/18 03/06/18 # Bowel Movements 0 - Routine Cardiovascular Exam Present: RRR, S1, S2, murmur. Absent: gallop Comments: II/ LAMBERT along left sternal border, increases after PVC. ICD site clean, dry , intact, no hematoma or tenderness. Results 03/05/18 07:14 03/05/18 07:14 CBC 03/05/18 Range/Units 07:14 WBC 5.3 (4.0-11.0) th/mm3 RBC 4.79 (4.50-5.90) mil/mm3 Hgb 14.4 (13.0-17.0) gm/dL Hct 42.2 (39.0-51.0) % Plt Count 188 (150-450) th/mm3 Comprehensive Metabolic Panel 03/05/18 Range/Units 07:14 Sodium 142 (136-145) meq/L Potassium 4.1 (3.5-5.1) meq/L Chloride 106 (98-107) meq/L Carbon Dioxide 28.2 (21.0-32.0) meq/L BUN 15 (7-18) mg/dL Creatinine 0.98 (0.60-1.30) mg/dL Calcium 8.4 L (8.5-10.1) mg/dL Intake and Output 03/06/18 03/07/18 03/07/18 22:59 06:59 14:59 Intake Total 240 / 240 1240 / 1240 Output Total 400 / 400 Balance -160 / -160 1240 / 1240 Intake: Oral 240 / 240 1240 / 1240 Output: Urine 400 / 400 Other: # Voids 4 Date of Last Bowel Movement 03/05/18 03/05/18 03/06/18 # Bowel Movements 0 Weight 113.5 kg - Imaging and Cardiology Imaging: Impressions Chest X-Ray 03/06/18 00:00 CONCLUSION: Left-sided pacemaker. No pneumothorax. Assessment and Plan - Assessment (1) Hypertrophic obstructive cardiomyopathy Code(s): I42.1 - Obstructive hypertrophic cardiomyopathy Status: Chronic Plan: Stable. Minimal CAD on cath. Reportedly severe LVH more prominent at basal septum on echo. Left ventricular outflow tract gradient by cath at least does not appear to be severe (30 mm Hg). No further syncope. Dr. Montenegro's input noted, appreciated. He likely will undergo septal myomectomy in the near future. Patient s/p ICD implant yesterday. ICD re-interrogation shows stable, good pacing/defibrillatory parameters. ICD site OK. Patient cleared for discharge from cardiac standpoint, f/u [facility] in next few weeks, one week f/u in our office for incision site/ ICD recheck. (2) Chest pain Code(s): R07.9 - Chest pain, unspecified Status: Acute Plan: Stable overnight. Minimal CAD on cath. Left ventricular outflow tract gradient by cath at least does not appear to be severe though reportedly severe LVH more prominent at basal septum on echo. Continue beta vangie. - Plan Code Status: full code Discussed Condition With: patient (2) Chest pain Qualifiers: Chest pain type: unspecified Qualified Code(s): R07.9 - Chest pain, unspecified
--- NOTE | 2018-03-07 09:13 | P.DS ---
Date of admission: 03/02/18 22:40 Primary care physician: '[facility] Anticipated date of discharge: 03/07/18 Brief History from admission: 43-year-old male with rather sniffing cardiac history with severe hypertrophic cardiomyopathy who is undergoing management by [place] microwave engineer in [place]. Patient states that since December of this year he has been managed by [place] [facility] in [place]. Patient has undergone echocardiogram to show severe hypertrophic cardiomyopathy. He has undergone recent Holter monitor, he has an appointment with scratcher in March to evaluate possible ablation versus cardiac surgery, AICD placement. Patient was in his normal state of health until last evening when he was watching TV at approximately 9: 00 at night when he got a sudden onset of chest discomfort which he described as a elephant sitting on his chest and a squeezing sensation around his heart which was 8/10 on a pain scale. He had associated diaphoresis, shortness of breath, dyspnea. Patient was notified by his [place] microwave engineer that if he was to have any discomfort he should go to the hospital immediately because he is at risk for sudden cardiac . Patient was evaluated emergency department with laboratory studies which troponins were unremarkable. Patient had EKGs which did show significant abnormalities with what appears to be ST elevations in lead III, V2, V3, V4, Q waves in inferior leads, T wave abnormalities in leads I , aVR, V1. Patient was given nitroglycerin in the emergency department with only minimal relief of his chest discomfort. Patient did have an episode of hypotension in which his blood pressure dropped down to 78/38. Patient was given a liter fluid bolus with improvement of his blood pressure. Upon seeing the patient he still having active chest discomfort 8/10 on a pain scale located in the middle part of his chest that he describes as a elephant sitting on his chest radiating up into the left side of his neck, left arm, with shortness of breath and dyspnea. Patient update on day of discharge: The patient was feeling well and wanted to go home. [facility] will make an appointment with his microwave engineer. He had no acute complaints. DS: Diagnosis - Discharge Diagnosis (1) Chest pain Status: Acute DS: Medications - Discharge Medications Prescriptions: aspirin [Aspir-81] 81 mg PO DAILY #30 tab atorvastatin 20 mg PO DAILY #30 tab oxycodone-acetaminophen [Percocet] 1 tab PO Q4-6H PRN #12 tab PRN Reason: Pain DS: Summary Hospital Course: Chest pain/HOCM Patient presented with chest pain heaviness/pressure with radiation to the neck , shoulder with associated shortness of breath and diaphoresis. Patient carries diagnosis of severe hypertrophic cardiomyopathy, history of tobacco use and family history of heart disease. Serial cardiac enzymes were performed which were unremarkable. EKG showed sinus rhythm, voltage criteria for left ventricular hypertrophy, lateral T-wave abnormality. Cardiology was consulted. He was started on a heparin gtt. S/p cardiac catheterization 03/04 which showed minimal CAD. Reportedly severe LVH more prominent at basal septum noted on echo. Left ventricular outflow tract gradient by cath does not appear to be severe (30 mm Hg). EP was consulted. The pt is s/p AICD placement 03/06. He received pain control as needed. E-FORCSE was checked. He was monitored on telemetry. He was cleared for discharge by cardiology. He will continue ASA and a statin. He will follow up with his microwave engineer. - Time Spent with Patient Total time spent providing and/or coordinating discharge services: Less than 30 minutes - Quality: VTE Deep Vein Thrombosis/Pulmonary Embolism Present on Admission: No Exam Vital signs: Vital Signs 03/06/18 09:23 03/06/18 10:00 03/06/18 11:00 Temperature Pulse Rate 61 56 L Respiratory Rate Blood Pressure Pulse Oximetry 94 L 03/06/18 11:18 03/06/18 12:00 03/06/18 13:00 Temperature 97.9 F Pulse Rate 50 L 54 L 50 L Respiratory Rate 20 Blood Pressure 116/51 L Pulse Oximetry 96 03/06/18 14:00 03/06/18 16:30 03/06/18 16:45 Temperature 97.3 F L Pulse Rate 48 L 67 71 Respiratory Rate 15 18 Blood Pressure 131/83 133/88 Pulse Oximetry 99 97 03/06/18 17:00 03/06/18 17:15 03/06/18 17:16 Temperature 97.4 F L 97.6 F Pulse Rate 69 67 80 Respiratory Rate 17 15 20 Blood Pressure 124/74 147/89 H 116/71 Pulse Oximetry 97 99 99 03/06/18 18:00 03/06/18 19:00 03/06/18 20:00 Temperature 98.5 F Pulse Rate 74 68 82 Respiratory Rate 18 Blood Pressure 116/71 Pulse Oximetry 99 03/06/18 21:00 03/06/18 22:00 03/06/18 23:00 Temperature Pulse Rate 66 70 67 Respiratory Rate Blood Pressure Pulse Oximetry 03/07/18 00:00 03/07/18 01:00 03/07/18 02:00 Temperature 98.1 F Pulse Rate 67 60 64 Respiratory Rate 16 Blood Pressure 132/72 Pulse Oximetry 100 03/07/18 03:00 03/07/18 04:00 03/07/18 05:00 Temperature 98.4 F Pulse Rate 57 L 57 L 73 Respiratory Rate 18 Blood Pressure 124/73 Pulse Oximetry 100 03/07/18 06:00 03/07/18 08:02 Temperature 97.8 F Pulse Rate 62 64 Respiratory Rate 17 Blood Pressure 162/87 H Pulse Oximetry 98 Intake & Output 03/06/18 03/07/18 03/07/18 18:59 06:59 18:59 Intake Total 240 / 240 1240 / 1240 Output Total 400 / 400 Balance -160 / -160 1240 / 1240 Weight 113.5 kg Intake: Oral 240 / 240 1240 / 1240 Output: Urine 400 / 400 Other: # Voids 4 Date of Last Bowel Movement 03/05/18 03/05/18 03/06/18 # Bowel Movements 0 Narrative: GENERAL: Well-developed, well-nourished, in no acute distress. HEENT: Head is normocephalic. Facial features are symmetric. Pupils equal round reactive to light. Extraocular muscles are intact. NECK: Supple without any masses. Trachea midline no deviation. No JVD, no bruits are appreciated. CARDIAC: Regular rhythm, regular rate. S1/S2 are heard. Systolic murmur appreciated. Bandage on upper left chest wall. LUNGS: Clear to auscultation bilaterally. No wheeze, rhonchi or rales. No use of accessory muscles on inspiration or expiration. ABDOMEN: Soft, nontender. Nondistended. Bowel sounds heard in all 4 quadrants. No organomegaly or masses. Negative rebound, negative guarding. EXTREMITIES: No edema, pulses are equal bilaterally. No cyanosis or clubbing. NEUROLOGY: Cranial nerves II through XII grossly intact. Muscle strength 5/5 in upper and lower extremities bilaterally. Results Procedures completed during hospitalization: Cardiac catheterization AICD placement - Impressions ITS Impressions Chest X-Ray 03/06/18 00:00 CONCLUSION: Left-sided pacemaker. No pneumothorax. Discharge Plan - Discharge Disposition Patient Disposition: 01 Discharge Home - Discharge Condition Condition: Stable - Discharge Order Discharge Orders: Discharge Order (Routine); Ordered 03/07/18 Ordered By: Chris Berg Cardiology Clear for Discharge (Routine); Ordered 03/07/18 Ordered By: Chiki Siegel - Discharge Details Anticipated Discharge Date: 03/07/18 - Physicians Team Primary Care Provider: [facility] [place] Attending Provider: Chris Berg Other Providers: Chiki Siegel MD ; Juanita Montenegro MD
== END 2018-03-07 10:06 | disposition home or self-care (01) ==
LOC: PHEDA 21:08 → PHED 21:08 → PH3 03-03 00:04 → HCIS 03-03 14:21
PROVIDERS: ADMIT Hospitalist; ATTEND Hospitalist

== ENCOUNTER 2018-04-21 01:28 | Inpatient (IN) ==
[2018-04-21] MEDS ORDERED: Sod Chloride 0.9% Inj 1,000 ML IV.SIG ONE (01:39)
[2018-04-21 01:58] LABS: Baso # (Auto) 0.1 th/mm3 (0.0-0.2); Baso % (Auto) 0.9 % (0.0-2.0); Eos # (Auto) 0.5 th/mm3 (0.0-0.4); Hematocrit 44.1 % (39.0-51.0); Hemoglobin 14.1 gm/dL (13.0-17.0); Lymph # (Auto) 3.1 th/mm3 (1.0-4.8); Lymph % (Auto) 29.6 % (9.0-44.0); Mean Corpuscular HGB Conc 31.9 % (32.0-36.0); Mean Corpuscular Hemoglobin 27.9 pg (27.0-34.0); Mean Corpuscular Volume 87.6 fL (80.0-100.0); Mean Platelet Volume 8.2 fL (7.0-11.0); Mono # (Auto) 0.7 th/mm3 (0.0-0.9); Mono % (Auto) 6.8 % (0.0-8.0); Neut % (Auto) 57.7 % (16.0-70.0); Platelet Count 567 th/mm3 (150-450); Red Blood Count 5.04 mil/mm3 (4.50-5.90); Red Cell Distribution Width 12.2 % (11.6-17.2); White Blood Count 10.4 th/mm3 (4.0-11.0)
[2018-04-21 02:08] LABS: Chloride 100 meq/L (98-107); Potassium 3.9 meq/L (3.5-5.1); Sodium 138 meq/L (136-145)
[2018-04-21 02:11] LABS: Albumin 4.1 g/dL (3.4-5.0); Anion Gap 11 meq/L (5-15); Calcium 9.2 mg/dL (8.5-10.1); Carbon Dioxide 27.2 meq/L (21.0-32.0)
[2018-04-21 02:12] LABS: Blood Urea Nitrogen 17 mg/dL (7-18); Glucose,Random 101 mg/dL (74-106)
[2018-04-21 02:14] LABS: Alanine Aminotransferase 44 U/L (12-78)
[2018-04-21 02:15] LABS: Aspartate Aminotransferase 18 U/L (15-37); Glomerular Filtration Rate 73 mL/min (>89)
[2018-04-21 02:16] LABS: Total Protein 8.6 g/dL (6.4-8.2)
[2018-04-21 02:17] LABS: Alkaline Phosphatase 93 U/L (45-117)
[2018-04-21 02:19] LABS: Troponin I 0.06 ng/mL (0.02-0.05)
[2018-04-21] MEDS ORDERED: Metoprolol Inj 5 MG/5 ML Vial IV.PUSH ONE ×3 (02:46→10:43)
--- NOTE | 2018-04-21 02:55 | XR ---
EXAM DATE: 04/21/2018 2:19 AM EST AGE/SEX: 43 years / Male INDICATIONS: Chest pain. CLINICAL DATA: This is the patient's initial encounter. Patient reports that signs and symptoms have been present for 1 day and indicates a pain score of 6/10. MEDICAL/SURGICAL HISTORY: . Cardiomyopathy. CABG. Pacemaker. Inguinal hernia repair. Left s houlder. Bilateral knees. COMPARISON: [facility] [place], CHEST 1V SINGLE AP, 03/06/2018. . FINDINGS: No infiltrate, effusion or pneumothorax demonstrated. Heart size upper limits of normal, similar to before. Cardiac pacer/defibrillator again seen. Patient has had previous median sternotomy. CONCLUSION: No acute abnormality demonstrated. Electronically signed by: Hunter Snowden MD Board Certified Radiologist 04/21/2018 2:53 AM EST
--- NOTE | 2018-04-21 04:11 | ED ---
HPI General Chief complaint: Arrhythmia / Palpitations Stated complaint: AFIB Time Seen by Provider: 04/21/18 01:36 Source: patient Mode of arrival: ambulatory Limitations: no limitations History of Present Illness HPI narrative: This is a 43-year-old male who has a complicated cardiac history. On April 09 at the [facility] in [place] he had a myomectomy for hypertrophic cardiomyopathy. Subsequently he developed an atrial arrhythmia which he describes as 2-1 atrial flutter that converted into atrial fibrillation. He had a cardioversion done in the emergency department and then had an electrophysiology study and had his pacemaker wire re positioned on April 12. 1 hour prior to arrival this evening he developed palpitations which he says feels similar to when he had his arrhythmia. He denies chest pain but feels his heart beating rapidly in his chest, constant, moderate severity associated with some shortness of breath. He is currently on amiodarone and 50 mg of metoprolol which he took this evening. Related Data Home Medications Medication Instructions Recorded Confirmed amiodarone 200 mg PO DAILY 04/21/18 04/21/18 dabigatran etexilate [Pradaxa] 150 mg PO BID 04/21/18 04/21/18 docusate sodium 100 mg PO DAILY 04/21/18 04/21/18 metoprolol succinate 50 mg PO DAILY 04/21/18 04/21/18 Previous Rx's Medication Instructions Recorded aspirin [Aspir-81] 81 mg PO DAILY #30 tab 03/07/18 oxycodone-acetaminophen [Percocet] 1 tab PO Q4-6H PRN #12 tab 03/07/18 Allergies Allergy/AdvReac Type Severity Reaction Status Date / Time tramadol AdvReac Intermediate [place] Verified 03/02/18 22:50 acetaminophen AdvReac Mild VOMITING Verified 03/02/18 22:50 codeine AdvReac Mild VOMITING Verified 03/02/18 22:50 Fentanyl patch AdvReac Severe "Eats my Uncoded 03/02/18 21:16 flesh off" Review of Systems ROS: all other systems reviewed are negative PMFSH Medical History Medical History Family history of AICD (automatic internal cardiac defibrillator) (Acute) Hypertrophic obstructive cardiomyopathy (Acute) Surgical History Surgical History History of open heart surgery (Acute) H/O bilateral inguinal hernia repair (Acute) H/O knee surgery (Acute) History of shoulder surgery (Acute) Family History Family History Father History of atrial fibrillation Social History Social History Substance History: No History of Abuse Second Hand Smoke Exposure: No Smoking Status: Never smoker Tobacco Type: Cigarettes Number of Pack-Years (if former smoker): 22 (Quit smoking 5 years ago) How Often Do You Have a Drink Containing Alcohol: Monthly or less Recent Travel in [place] within the Last 8 Weeks: No Recent Out of Country Travel within the Last 8 Weeks: No Immunization History Tetanus Immunization: <5 Years Tetanus Immunization Year if Known: 2018 Exam Narrative Exam Narrative: GENERAL:Well appearing, no acute distress SKIN: Focused skin assessment warm and dry. HEAD: Atraumatic. Normocephalic. EYES: Pupils equal and round. No injection or drainage. ENT: Moist mucous membranes NECK: Trachea midline. CARDIOVASCULAR: Well healing sternal scar. Tachycardia. RESPIRATORY: Clear to auscultation. Breath sounds equal bilaterally. GASTROINTESTINAL: Abdomen soft, non-tender, nondistended. MUSCULOSKELETAL: No obvious deformities. NEUROLOGICAL: Awake and alert. No obvious cranial nerve deficits. Moving all extremities. PSYCHIATRIC: Appropriate mood and affect; insight and judgment normal. Course Initial Documented Vital Signs Temperature 97.8 F 04/21/18 02:00 Pulse Rate 120 H 04/21/18 02:00 Respiratory Rate 20 04/21/18 02:00 Blood Pressure 128/91 H 04/21/18 02:00 Pulse Oximetry 98 04/21/18 02:00 Last Documented Vital Signs Temperature 97.9 F 04/21/18 07:14 Pulse Rate 112 H 04/21/18 07:14 Respiratory Rate 18 04/21/18 07:14 Blood Pressure 86/71 L 04/21/18 07:14 Pulse Oximetry 98 04/21/18 06:16 Medical Decision Making MDM Narrative Medical decision making narrative: This is a 43-year-old male who presents to the emergency department with palpitations. He feels symptomatic. He is tachycardic with a normal blood pressure on arrival. He was placed on a monitor and an IV was established. EKG demonstrates a wide complex tachycardia with a heart rate of 119. I discussed this case with the cardiothoracic surgery team at the [facility] in [place] and with the computer support specialist instructor on-call for Dr. Bala Cardona who did the patient's procedure. . The computer support specialist instructor reported that the patient developed a new wide complex morphology on his EKG following his myomectomy. He recommended I give the patient rate control with metoprolol as this is the patient's home medication. The patient was given 2 5 mg metoprolol boluses. When the patient's rate slowed, it is clear he is in atrial flutter alternating between 2-1 and 3-1 conduction. Given he is symptomatic, I think it is reasonable to admit him for cardiology consultation as another cardioversion may be warranted. Medical Screen Exam Complete: Yes Emergency Medical Condition: Yes Lab Data Result diagrams: 04/21/18 01:45 04/21/18 01:45 Lab Results 04/21/18 04/21/18 Range/Units 01:45 01:45 CBC w Diff Auto diff final WBC 10.4 (4.0-11.0) th/mm3 RBC 5.04 (4.50-5.90) mil/mm3 Hgb 14.1 (13.0-17.0) gm/dL Hct 44.1 (39.0-51.0) % MCV 87.6 (80.0-100.0) fL MCH 27.9 (27.0-34.0) pg MCHC 31.9 L (32.0-36.0) % RDW 12.2 (11.6-17.2) % Plt Count 567 H (150-450) th/mm3 MPV 8.2 (7.0-11.0) fL Neut % (Auto) 57.7 (16.0-70.0) % Lymph % (Auto) 29.6 (9.0-44.0) % Pettis % (Auto) 6.8 (0.0-8.0) % Eos % (Auto) 5.0 H (0.0-4.0) % Baso % (Auto) 0.9 (0.0-2.0) % Neut # (Auto) 6.0 (1.8-7.7) th/mm3 Lymph # (Auto) 3.1 (1.0-4.8) th/mm3 Pettis # (Auto) 0.7 (0.0-0.9) th/mm3 Eos # (Auto) 0.5 H (0.0-0.4) th/mm3 Baso # (Auto) 0.1 (0.0-0.2) th/mm3 WBC Differential . Differential Comment . Sodium 138 (136-145) meq/L Potassium 3.9 (3.5-5.1) meq/L Chloride 100 (98-107) meq/L Carbon Dioxide 27.2 (21.0-32.0) meq/L Anion Gap 11 (5-15) meq/L BUN 17 (7-18) mg/dL Creatinine 1.10 (0.60-1.30) mg/dL Estimated GFR 73 L (>89) mL/min Random Glucose 101 (74-106) mg/dL Calcium 9.2 (8.5-10.1) mg/dL Total Bilirubin 0.3 (0.2-1.0) mg/dL AST 18 (15-37) U/L ALT 44 (12-78) U/L Alkaline Phosphatase 93 (45-117) U/L Troponin I 0.06 H (0.02-0.05) ng/mL Total Protein 8.6 H (6.4-8.2) g/dL Albumin 4.1 (3.4-5.0) g/dL Imaging Data Radiologist's impression: Chest X-Ray 04/21/18 02:06 CONCLUSION: No acute abnormality demonstrated. Discharge Plan Discharge Disposition Patient Disposition: ED Admit(ED Internal Use Only) Discharge Order Discharge Orders: ED Use Only Admit Order (Routine); Ordered 04/21/18 Ordered By: Nkechi Grant Discharge Details Diagnosis: Atrial flutter Physicians Team ED Provider: Nkechi Grant Primary Care Provider: [facility]ician [facility]s Attending Provider: Stanislav Blackwood Other Providers: Donato Galvin Status ED Status: Left Department Discharge Information Discharge Date/Time: 04/21/18 06:15
[2018-04-21] MEDS ORDERED: Bisacodyl 10 MG Supp RECTAL PRN ×2 (04:40→09:11)
[2018-04-21] MEDS ORDERED: Acetaminophen 325 MG Tablet PO PRN ×2 (04:40→09:10)
[2018-04-21] MEDS ORDERED: Senna/Docusate Sodium 8.6/50 MG Tablet PO SCH (09:00)
[2018-04-21] MEDS ORDERED: METOPROLOL SUCCINATE 150 MG PO SCH (09:00)
[2018-04-21] MEDS ORDERED: Amiodarone 200 MG Tablet PO SCH (09:00)
[2018-04-21] MEDS ORDERED: Sodium Chlor 0.9% Inj 250 ML IV.SIG ONE (10:31)
--- NOTE | 2018-04-21 10:41 | P.HPIM ---
History of Present Illness Primary Care Physician: Physician [facility] History of Present Illness: 83-year-old male with a history of atrial fibrillation status post pacemaker, hypertrophic cardiomyopathy who is postoperative day 12 from myomectomy performed at [facility] in [place] by Dr. Christianson, as well as postoperative day 9 from pacemaker wire repositioning due to postoperative atrial flutter/ fibrillation. Patient presents with acute onset dull substernal nonradiating chest pain beginning around 3 AM, feeling of lightheadedness without syncope.. He notes that heart rate was in the 1 teens. Denies any fevers, chills, shortness of breath, nausea, vomiting.. Patient says he felt fine last night prior to going to bed. Denies any medication changes or missed medications over the past several days. Patient currently says that his chest pain has resolved. Inpatient Certification: I certify that the inpatient services were ordered in accordance with Medicare regulations governing the order. This includes certification that hospital inpatient services are reasonable and necessary and in the case of services not specified as inpatient-only under 42 CFR 419.22(n), that they are appropriately provided as inpatient services in accordance to with the 2-midnight benchmark under 43 CFR 412.3(e) Estimated Total Length of Stay (Days): 2 Plans for Post Hospital Care: Not yet determined Review of Systems All other systems reviewed negative except as stated in HPI PMFSH - History History Provided By: Patient - Medical History Medical History: Medical History (Last Reviewed 04/21/18 @ 10:24 by Stanislav Blackwood MD) Family history of AICD (automatic internal cardiac defibrillator) Hypertrophic obstructive cardiomyopathy - Surgical History Surgical History: Surgical History (Last Reviewed 04/21/18 @ 10:24 by Stanislav Blackwood MD) History of open heart surgery H/O bilateral inguinal hernia repair H/O knee surgery History of shoulder surgery - Family History Family History: Family History (Last Reviewed 04/21/18 @ 10:24 by Stanislav Blackwood MD) Father History of atrial fibrillation - Social History I have reviewed the patient's Social History: Yes - Tobacco History Second Hand Smoke Exposure: No Tobacco Use In Past 30 Days: No Smoking Status: Never smoker Tobacco Type: Cigarettes Number of Pack Years (if former smoker): 22 (Quit smoking 5 years ago) - Alcohol History How Often Do You Have a Drink Containing Alcohol: Monthly or less - Substance Use History Substance History: No History of Abuse - Travel History Recent Travel in the [place] Within the Last 8 Weeks: No Recent Travel Out of the Country Within the Last 8 Weeks: No - Immunization History Tetanus Immunization: <5 Years Tetanus Immunization Year if Known: 2018 Medications and Allergies Active Medications: Active Medications Acetaminophen (Tylenol) 650 mg PO Q4H PRN PRN Reason: Temp > 100.4 Al Hydroxide/Mg Hydroxide (Milk Of Magnesia Liq) 30 ml PO Q12H PRN PRN Reason: Mild Constipation Amiodarone HCl (Cordarone) 200 mg PO DAILY [facility] Aspirin (Ecotrin) 81 mg PO DAILY [facility] Bisacodyl (Dulcolax Supp) 10 mg RECTAL DAILY PRN PRN Reason: SEVERE CONSITIPATION Dabigatran (Pradaxa) 150 mg PO BID [facility] Lactulose (Lactulose Liq) 30 ml PO DAILY PRN PRN Reason: SEVERE CONSITIPATION Metoprolol Succinate (Toprol Xl) 150 mg PO DAILY [facility] Ondansetron HCl (Zofran Inj) 4 mg IV.PUSH Q6H PRN PRN Reason: NAUSEA OR VOMITING Senna/Docusate Sodium (Kirsten-Colace) 1 tab PO BID [facility] Sennosides (Senokot) 17.2 mg PO Q12H PRN PRN Reason: Moderate Constipation Sodium Chloride (Ns Flush) 2 ml IV.FLUSH BID [facility] Sodium Chloride (Ns Flush) 2 ml IV.FLUSH PRN PRN PRN Reason: FLUSH AFTER USING IV ACCESS Allergies Allergy/AdvReac Type Severity Reaction Status Date / Time tramadol AdvReac Intermediate [place] Verified 03/02/18 22:50 acetaminophen AdvReac Mild VOMITING Verified 03/02/18 22:50 codeine AdvReac Mild VOMITING Verified 03/02/18 22:50 Fentanyl patch AdvReac Severe "Eats my Uncoded 03/02/18 21:16 flesh off" Home Medications Medication Instructions Recorded Confirmed Type amiodarone 200 mg PO DAILY 04/21/18 04/21/18 History dabigatran etexilate [Pradaxa] 150 mg PO BID 04/21/18 04/21/18 History docusate sodium 100 mg PO DAILY 04/21/18 04/21/18 History metoprolol succinate 50 mg PO DAILY 04/21/18 04/21/18 History Exam Vital signs: Vital Signs 12/30/18 02:00 04/21/18 02:04 04/21/18 02:57 Temperature 97.8 F Pulse Rate 120 H 113 H 114 H Respiratory Rate 20 20 18 Blood Pressure 128/91 H 104/77 103/74 Pulse Oximetry 98 99 96 04/21/18 02:59 04/21/18 03:06 04/21/18 03:39 Temperature Pulse Rate 112 H 110 H 114 H Respiratory Rate 18 18 Blood Pressure 104/70 108/72 Pulse Oximetry 97 97 04/21/18 04:06 04/21/18 05:13 04/21/18 06:00 Temperature Pulse Rate 110 H 112 H Respiratory Rate 18 20 Blood Pressure 118/72 116/53 L 115/85 Pulse Oximetry 04/21/18 06:16 04/21/18 07:00 04/21/18 07:12 Temperature 98 F Pulse Rate 114 H 100 H 114 H Respiratory Rate 9 L 19 Blood Pressure 110/59 L 97/58 L Pulse Oximetry 98 04/21/18 07:14 04/21/18 07:47 04/21/18 08:00 Temperature 97.9 F Pulse Rate 112 H 96 H Respiratory Rate 18 9 L Blood Pressure 86/71 L Pulse Oximetry 94 L 96 04/21/18 08:21 04/21/18 09:00 04/21/18 10:02 Temperature Pulse Rate 106 H 100 H 100 H Respiratory Rate 12 12 12 Blood Pressure 82/59 L 91/66 L 91/66 L Pulse Oximetry 98 97 98 Intake & Output 04/20/18 04/21/18 04/21/18 18:59 06:59 18:59 Intake Total 1000 / 1000 60 / 60 Output Total 0 / 0 Balance 1000 / 1000 60 / 60 Weight 114.8 kg Intake: IV 1000 / 1000 NS Inj 1,000 ML @ Wide Open IV. 1000 / 1000 SIG BOLUS ONE Rx#:[id number] Oral 60 / 60 Output: Urine 0 / 0 Other: Weight On Admission 114.8 kg Narrative: GENERAL: Patient lying in bed. Appears comfortable. Alert and oriented x4. SKIN: Warm and dry. HEAD: Atraumatic. Normocephalic. EYES: Pupils equal and round. No scleral icterus. No injection or drainage. ENT: No nasal bleeding or discharge. Mucous membranes pink and moist. NECK: Trachea midline. No JVD. CARDIOVASCULAR: Regular rate and rhythm. Wide QRS on telemetry. RESPIRATORY: No accessory muscle use. Clear to auscultation. Breath sounds equal bilaterally. Patient has large vertical chest incision which appears to be healing. No surrounding erythema or dehiscence. GASTROINTESTINAL: Abdomen soft, non-tender, nondistended. Hepatic and splenic margins not palpable. MUSCULOSKELETAL: Extremities without clubbing, cyanosis, or edema. No obvious deformities. NEUROLOGICAL: Awake and alert. No obvious cranial nerve deficits. Motor grossly within normal limits. Five out of 5 muscle strength in the arms and legs. Normal speech. PSYCHIATRIC: Appropriate mood and affect; insight and judgment normal. Results - Labs CBC & Chem 7: 04/21/18 01:45 04/21/18 01:45 Labs: Short CBC 04/21/18 Range/Units 01:45 WBC 10.4 (4.0-11.0) th/mm3 Hgb 14.1 (13.0-17.0) gm/dL Hct 44.1 (39.0-51.0) % Plt Count 567 H (150-450) th/mm3 BMP 04/21/18 01:45 Sodium 138 Potassium 3.9 Chloride 100 Carbon Dioxide 27.2 BUN 17 Creatinine 1.10 Calcium 9.2 Cardiac Enzymes 04/21/18 04/21/18 Range/Units 01:45 08:20 Troponin I 0.06 H 0.05 (0.02-0.05) ng/mL Liver Function 04/21/18 Range/Units 01:45 Total Bilirubin 0.3 (0.2-1.0) mg/dL AST 18 (15-37) U/L ALT 44 (12-78) U/L Alkaline Phosphatase 93 (45-117) U/L Albumin 4.1 (3.4-5.0) g/dL - Imaging Impressions Chest X-Ray 04/21/18 02:06 CONCLUSION: No acute abnormality demonstrated. Caprini VTE Risk Assessment Caprini VTE Risk Assessment: No/Low Risk (score <= 1) Caprini Risk Assessment Model: Point Value = 1 Point Value = 2 Point Value = 3 Point Value = 5 Age 41-60 Minor surgery BMI > 25 kg/m2 Swollen legs Varicose veins or History of unexplained or recurrent spontaneous Oral contraceptives or hormone replacement Sepsis (< 1 month) Serious lung disease, including pneumonia (< 1 month) Abnormal pulmonary function Acute myocardial infarction Congestive heart failure (< 1 month) History of inflammatory bowel disease Medical patient at bed rest Age 61-74 Arthroscopic surgery Major open surgery (> 45 min) Laparoscopic surgery (> 45 min) Malignancy Confined to bed (> 72 hours) Immobilizing plaster cast Central venous access Age >= 75 History of VTE Family history of VTE Factor V Leiden Prothrombin [id number] Lupus anticoagulant Anticardiolipin antibodies Elevated serum homocysteine Heparin-induced thrombocytopenia Other congenital or acquired thrombophilia Stroke (< 1 month) Elective arthroplasty Hip, pelvis, or leg fracture Acute spinal cord injury (< 1 month) Prophylaxis Regimen: Total Risk Factor Score Risk Level Prophylaxis Regimen 0-1 Low Early ambulation 2 Moderate Order ONE of the following: *Sequential Compression Device (SCD) *Heparin 5000 units SQ BID 3-4 Higher Order ONE of the following medications: *Heparin 5000 units SQ TID *Enoxaparin/Lovenox 40 mg SQ daily (WT < 150 kg, CrCl > 30 mL/min) *Enoxaparin/Lovenox 30 mg SQ daily (WT < 150 kg, CrCl > 10-29 mL/min) *Enoxaparin/Lovenox 30 mg SQ BID (WT < 150 kg, CrCl > 30 mL/min) AND/OR *Sequential Compression Device (SCD) 5 or more Highest Order ONE of the following medications: *Heparin 5000 units SQ TID (Preferred with Epidurals) *Enoxaparin/Lovenox 40 mg SQ daily (WT < 150 kg, CrCl > 30 mL/min) *Enoxaparin/Lovenox 30 mg SQ daily (WT < 150 kg, CrCl > 10-29 mL/min) *Enoxaparin/Lovenox 30 mg SQ BID (WT < 150 kg, CrCl > 30 mL/min) AND *Sequential Compression Device (SCD) Assessment and Plan - Plan //Acute onset chest pain //Recent myomectomy for treatment of HOCM //Cardiac shock with systolic blood pressures in the 80s //Troponin elevation to 0.06 on admission. Likely demand related = EKG with left bundle branch block, sinus rhythm Chest x-ray with no acute findings Hypotension in the 90s systolic -Recent surgery at [facility] by Dr. Christianson -Continue home medications, amiodarone.. Will increase metoprolol to 75 mg of tartrate twice daily. -Will discuss with cardiology regarding rate control. -Small fluid bolus. Patient will be monitored on telemetry. Consult cardiology. Cardiology recommends transfer patient to main hospital. Will trend troponins. Check echocardiogram Discussed Condition With: Patient, nurse Discharge Planning: will be transferred to CVICU
[2018-04-21] MEDS: Metoprolol Tartrate 50 MG Tablet PO SCH ×2 (12:47→20:11)
[2018-04-21] MEDS ORDERED: Amiodarone Inj 150 MG in Dextrose 5% in Water Inj 97 ML IV.SIG ONE ×2 (13:00)
--- NOTE | 2018-04-21 14:18 | ECG ---
Date Performed: 04/21/2018 Time Performed: 01:38:21 PTAGE: 43 years EKG: SINUS TACHYCARDIA OR ATRIAL TACHYCARDIA WITH SHORT SC INTERVAL LEFT AXIS DEVIATION LEFT BUN DLE BRANCH BLOCK ABNORMAL ECG PREVIOUS TRACING : 03/03/2018 09.26 Compared to previous tracing, heart rate has increased, pos sible atrial tachycardia is now present, left bundle branch block is now evident. DOCTOR: Chiki Siegel Interpretating Date/Time 04/21/2018 14:16:44
--- NOTE | 2018-04-21 16:30 | MB ---
cc: Chiki Siegel MD DATE: 04/21/2018 REASON FOR CONSULTATION: Atrial flutter, atrial fibrillation, chest pain. HISTORY OF PRESENT ILLNESS: The patient is a 43-year-old white male with a history of hypertrophic obstructive cardiomyopathy, status post septal myomectomy 04/09/2018, history of AICD implant 03/06/2018 due to syncope in the setting of hypertrophic obstructive cardiomyopathy, history of Mehrdad syndrome, paroxysmal atrial fibrillation, status post cardioversion in [place] after his surgery, who presented to the hospital with complaints of palpitations. The patient states for the past few hours he has been experiencing palpitations described as a "stopping" and racing. He has felt mildly lightheaded without syncope or near syncope. Over the last 24 hours, he has also noticed mild dyspnea at rest. He reports a diffuse chest discomfort described as "tightness" associated with shortness of breath. He denies pedal edema, paroxysmal nocturnal dyspnea, or orthopnea. The patient states he has been on Pradaxa ever since discharge from his surgery hospitalization. PAST MEDICAL HISTORY: 1. Hypertrophic obstructive cardiomyopathy, status post septal myomectomy 04/09/2018 at the [facility]. 2. Mehrdad syndrome. 3. Paroxysmal atrial fibrillation postoperative from his septal myomectomy. CARDIAC MEDICATIONS AT HOME: 1. Pradaxa 150 mg b.i.d. 2. Toprol-XL 50 mg daily. 3. Amiodarone 200 mg daily. ALLERGIES: 1. TRAMADOL. 2. CODEINE. 3. FENTANYL. 4. ACETAMINOPHEN. FAMILY HISTORY: Noncontributory. SOCIAL HISTORY: The patient quit smoking about 5 years ago. There is no history of alcohol abuse. REVIEW OF SYSTEMS: As in the history of present illness, otherwise negative or noncontributory. He also denies headache, abdominal pain, melena, dyspepsia, bright red blood per rectum. PHYSICAL EXAMINATION: VITAL SIGNS: His blood pressure is 112/82 with a pulse of 117, respirations 20. GENERAL: He is a well-developed, well-nourished white male, in no acute distress. NECK: Jugular venous pressure is normal. Carotid pulses are 2+ bilaterally and without bruits. CHEST: Reveals clear lungs soriano. CARDIAC: He has a tachycardic irregular rhythm without S3 or murmur. ABDOMEN: He has a soft, nontender abdomen. Bowel sounds are present. There is no definite hepatosplenomegaly. EXTREMITIES: Reveals no clubbing, cyanosis or edema. LABORATORY DATA: EKG from 04/21/2018 at 4:14 a.m. shows atrial flutter with variable AV conduction, left bundle branch block. Chest x-ray shows no acute disease. LABORATORY DATA: Includes normal CBC. Potassium 3.9, BUN 17, creatinine 1.10. Troponin 0.06. IMPRESSION: Recurrent atrial arrhythmias, probably atrial flutter and atrial fibrillation in this 43-year-old white male status post recent septal myomectomy for hypertrophic obstructive cardiomyopathy, history of AICD implant for syncope in the setting of hypertrophic obstructive cardiomyopathy. At this time, he continues to have mildly elevated heart rates associated with symptoms of shortness of breath/palpitations/chest pain. He has been on anticoagulation therapy (Pradaxa). There is no definite evidence for acute coronary syndrome. He did have a heart catheterization last month showing minimal coronary artery disease. RECOMMENDATIONS: 1. Continue intravenous amiodarone. 2. Continue beta vangie therapy as his blood pressures tolerate. 3. Continue Pradaxa. 4. Cardioversion today. MD YANNI Leach/frandy , 02:49 PM , 02:58 PM MTDD
--- NOTE | 2018-04-21 16:57 | ECG ---
Date Performed: 04/21/2018 Time Performed: 15:56:42 PTAGE: 43 years EKG: Sinus rhythm with borderline 1st degree A-V block Left bundle branch block Abnormal ECG PREVIOUS TRACING : 04/21/2018 10.47 Compared to previous tracing, sinus rhythm has replaced atr ial flutter. DOCTOR: Chiki Siegel Interpretating Date/Time 04/21/2018 16:56:37
--- NOTE | 2018-04-21 17:14 | MA ---
cc: Chiki Siegel MD DATE: 04/21/2018 PROCEDURE: Electrical cardioversion of atrial flutter. PROCEDURE NOTES: The patient's underlying rhythm was confirmed to be in atrial flutter with variable AV conduction through the [employer] AICD device. The patient was sedated by the nurse occupational physician. A 40 joule biphasic shock was delivered through the AICD, converting the patient to sinus rhythm. There were no apparent immediate complications. CONCLUSIONS: Successful electrical cardioversion of atrial flutter to sinus rhythm. Chiki Siegel MD [facility]/rm , 04:57 PM , 05:02 PM
[2018-04-21] MEDS ORDERED: Naloxone Inj 0.4 MG/ML Vial IV.PUSH PRN (17:16)
--- NOTE | 2018-04-21 17:55 | ECG ---
Date Performed: 04/21/2018 Time Performed: 10:47:32 PTAGE: 43 years EKG: Atrial fibrillation with PVC(s) Left axis deviation Left bundle branch block Possible infer ior infarct - age undetermined Abnormal ECG PREVIOUS TRACING : 04/21/2018 04.14 Since the previous tracing, no significant change noted DOCTOR: Chandana Johnson Interpretating Date/Time 04/21/2018 17:53:48
[2018-04-21] MEDS: Senna/Docusate Sodium 8.6/50 MG Tablet PO SCH (20:11)
--- NOTE | 2018-04-21 23:35 | ECG ---
Date Performed: 04/21/2018 Time Performed: 04:14:04 PTAGE: 43 years EKG: ATRIAL FLUTTER/TACHYCARDIA LEFT BUNDLE BRANCH BLOCK ABNORMAL ECG INTERPRETATION BASED ON A DEFAULT AGE OF 40 YEARS PREVIOUS TRACING : 04/21/2018 01.38 Since the previous tracing, no significant change not ed DOCTOR: Chandana Johnson Interpretating Date/Time 04/21/2018 23:33:40
[2018-04-22 06:04] LABS: Alanine Aminotransferase 28 U/L (12-78); Albumin 3.3 g/dL (3.4-5.0); Anion Gap 7 meq/L (5-15); Aspartate Aminotransferase 10 U/L (15-37); Blood Urea Nitrogen 17 mg/dL (7-18); Calcium 8.6 mg/dL (8.5-10.1); Carbon Dioxide 26.9 meq/L (21.0-32.0); Chloride 106 meq/L (98-107); Glomerular Filtration Rate 69 mL/min (>89); Glucose,Random 90 mg/dL (74-106); Potassium 4.2 meq/L (3.5-5.1); Sodium 140 meq/L (136-145)
[2018-04-22 06:06] LABS: Alkaline Phosphatase 80 U/L (45-117); Total Protein 6.5 g/dL (6.4-8.2)
[2018-04-22 06:12] LABS: Baso # (Auto) 0.1 th/mm3 (0.0-0.2); Baso % (Auto) 0.7 % (0.0-2.0); Eos # (Auto) 0.5 th/mm3 (0.0-0.4); Eos % (Auto) 5.6 % (0.0-4.0); Hematocrit 34.1 % (39.0-51.0); Hemoglobin 11.6 gm/dL (13.0-17.0); Lymph # (Auto) 2.1 th/mm3 (1.0-4.8); Mean Corpuscular HGB Conc 34.2 % (32.0-36.0); Mean Corpuscular Hemoglobin 29.9 pg (27.0-34.0); Mean Corpuscular Volume 87.5 fL (80.0-100.0); Mean Platelet Volume 7.8 fL (7.0-11.0); Mono # (Auto) 0.8 th/mm3 (0.0-0.9); Mono % (Auto) 9.7 % (0.0-8.0); Neut # (Auto) 5.2 th/mm3 (1.8-7.7); Platelet Count 367 th/mm3 (150-450); Red Blood Count 3.89 mil/mm3 (4.50-5.90); Red Cell Distribution Width 12.8 % (11.6-17.2); White Blood Count 8.6 th/mm3 (4.0-11.0)
[2018-04-22] MEDS: Senna/Docusate Sodium 8.6/50 MG Tablet PO SCH (08:31)
[2018-04-22] MEDS ORDERED: Amiodarone 200 MG Tablet PO SCH (09:00)
--- NOTE | 2018-04-22 09:06 | P.PNIM ---
Subjective Interval history: The pt was feeling well after cardioversion. He wants to get his heart rate under control as he says he has been getting cardioverted every week. He says he has some pain that Percocet helps with. Has been ambulating. Tolerating a diet. Discussed with nursing at the bedside. Physical Exam Vital signs: Last Vital Signs Temp 98.1 F 04/22/18 08:00 Pulse 56 L 04/22/18 08:00 Resp 20 04/22/18 08:00 BP 113/73 04/22/18 08:00 Pulse Ox 100 04/22/18 08:00 Intake & Output 04/20/18 04/21/18 04/22/18 04/23/18 06:59 06:59 06:59 06:59 Intake Total 1000 / 1000 410 / 410 Output Total 0 / 0 Balance 1000 / 1000 410 / 410 Weight 114.8 kg 115 kg Narrative: GENERAL: Patient lying in bed. Appears comfortable. SKIN: Warm and dry. Patient has large vertical chest incision which appears to be healing. No surrounding erythema or dehiscence. HEAD: Atraumatic. Normocephalic. EYES: Pupils equal and round. No scleral icterus. No injection or drainage. ENT: No nasal bleeding or discharge. Mucous membranes pink and moist. NECK: Trachea midline. No JVD. CARDIOVASCULAR: Regular rate and rhythm. RESPIRATORY: No accessory muscle use. Clear to auscultation. Breath sounds equal bilaterally. GASTROINTESTINAL: Abdomen soft, non-tender, nondistended. Hepatic and splenic margins not palpable. MUSCULOSKELETAL: Extremities without clubbing, cyanosis, or edema. No obvious deformities. NEUROLOGICAL: Awake and alert. No obvious cranial nerve deficits. Motor grossly within normal limits. Five out of 5 muscle strength in the arms and legs. Normal speech. PSYCHIATRIC: Appropriate mood and affect; insight and judgment normal. Results Labs CBC & Chem 7: 04/22/18 04:25 04/22/18 04:25 Assessment and Plan Plan Acute onset chest pain/Cardiogenic shock Recent myomectomy for treatment of HOCM by Dr. Christianson in [place]. Systolic blood pressures in the 80s. EKG with left bundle branch block, sinus rhythm. Chest x-ray with no acute findings. Trops peaked at 0.06. Cardiology consult appreciated. S/p cardioversion 04/21 and now in NSR. -Continue home medications including metoprolol, amiodarone, ASA and Pradaxa. On amio gtt at this time. -Patient will be monitored on telemetry. -follow up with cardiology. -pain control as needed. PPx: Pradaxa Discharge Planning: Await cardiology clearance. Amiodarone gtt to be discontinued today Progress Note: Quality VTE Deep Vein Thrombosis/Pulmonary Embolism Present on Admission: No
[2018-04-22] MEDS: Metoprolol Tartrate 50 MG Tablet PO SCH (09:58)
--- NOTE | 2018-04-22 10:49 | P.PNCA ---
Subjective Interval history: Feels fine. No dyspnea, palpitations, dizziness, CP. Medications and Allergies Active Medications: Active Medications Acetaminophen (Tylenol) 650 mg PO Q4H PRN PRN Reason: Temp > 100.4 Hydrocodone Bitart/Acetaminophen (Marvin 10/325) 1 tab PO Q4H PRN PRN Reason: PAIN SCALE 6 TO 10 Last Admin: 04/21/18 21:30 Dose: 1 tab Al Hydroxide/Mg Hydroxide (Milk Of Magnesia Liq) 30 ml PO Q12H PRN PRN Reason: Mild Constipation Amiodarone HCl (Cordarone) 200 mg PO DAILY [facility] Last Admin: 04/22/18 08:32 Dose: 200 mg Aspirin (Ecotrin) 81 mg PO DAILY [facility] Last Admin: 04/22/18 08:31 Dose: 81 mg Bisacodyl (Dulcolax Supp) 10 mg RECTAL DAILY PRN PRN Reason: SEVERE CONSITIPATION Dabigatran (Pradaxa) 150 mg PO BID [facility] Last Admin: 04/22/18 08:26 Dose: 150 mg Amiodarone HCl 450 mg/ (Dextrose) 250 mls @ 33.33 mls/hr IV.CONT TITRATE PRN; Protocol PRN Reason: Per Protocol Last Titration: 04/22/18 09:58 Dose: Infused Lactulose (Lactulose Liq) 30 ml PO DAILY PRN PRN Reason: SEVERE CONSITIPATION Metoprolol Tartrate (Lopressor) 25 mg PO BID [facility] Naloxone HCl (Narcan Inj) 0.4 mg IV.PUSH UNSCH PRN PRN Reason: SEE LABEL COMMENTS Ondansetron HCl (Zofran Inj) 4 mg IV.PUSH Q6H PRN PRN Reason: NAUSEA OR VOMITING Oxycodone/Acetaminophen (Percocet 5/325 Mg) 1 tab PO Q6H PRN PRN Reason: PAIN SCALE 3 TO 5 Last Admin: 04/21/18 17:35 Dose: 1 tab Senna/Docusate Sodium (Kirsten-Colace) 1 tab PO BID [facility] Last Admin: 04/22/18 08:31 Dose: 1 tab Sennosides (Senokot) 17.2 mg PO Q12H PRN PRN Reason: Moderate Constipation Sodium Chloride (Ns Flush) 2 ml IV.FLUSH BID [facility] Last Admin: 04/22/18 08:32 Dose: 2 ml Sodium Chloride (Ns Flush) 2 ml IV.FLUSH PRN PRN PRN Reason: FLUSH AFTER USING IV ACCESS Allergies Allergy/AdvReac Type Severity Reaction Status Date / Time tramadol AdvReac Intermediate [place] Verified 03/02/18 22:50 acetaminophen AdvReac Mild VOMITING Verified 03/02/18 22:50 codeine AdvReac Mild VOMITING Verified 03/02/18 22:50 Fentanyl patch AdvReac Severe "Eats my Uncoded 03/02/18 21:16 flesh off" Home Medications Medication Instructions Recorded Confirmed Type amiodarone 200 mg PO DAILY 04/21/18 04/21/18 History dabigatran etexilate [Pradaxa] 150 mg PO BID 04/21/18 04/21/18 History docusate sodium 100 mg PO DAILY 04/21/18 04/21/18 History metoprolol succinate 50 mg PO DAILY 04/21/18 04/21/18 History Physical Exam Vital signs: Vital Signs 04/21/18 11:00 04/21/18 12:00 04/21/18 13:00 Temperature 98 F Pulse Rate 115 H 115 H 117 H Respiratory Rate 16 Blood Pressure 112/82 Pulse Oximetry 95 04/21/18 13:51 04/21/18 15:00 04/21/18 15:30 Temperature 98.3 F Pulse Rate 101 H 109 H 106 H Respiratory Rate 18 Blood Pressure 115/79 Pulse Oximetry 97 04/21/18 16:00 04/21/18 17:00 04/21/18 17:55 Temperature Pulse Rate 101 H 64 61 Respiratory Rate Blood Pressure Pulse Oximetry 04/21/18 18:13 04/21/18 19:00 04/21/18 20:00 Temperature 98.5 F Pulse Rate 70 70 Respiratory Rate 14 16 Blood Pressure 134/68 Pulse Oximetry 97 04/21/18 23:00 04/22/18 00:00 04/22/18 00:11 Temperature 98 F Pulse Rate 55 L 55 L Respiratory Rate 16 16 Blood Pressure 117/67 Pulse Oximetry 97 04/22/18 03:00 04/22/18 04:00 04/22/18 07:00 Temperature 97.9 F Pulse Rate 55 L 58 L 56 L Respiratory Rate 15 Blood Pressure 107/62 Pulse Oximetry 97 04/22/18 08:00 Temperature 98.1 F Pulse Rate 56 L Respiratory Rate 20 Blood Pressure 113/73 Pulse Oximetry 100 Intake & Output 04/21/18 04/22/18 04/22/18 18:59 06:59 18:59 Intake Total 160 / 160 250 / 250 250 / 250 Output Total 0 / 0 Balance 160 / 160 250 / 250 250 / 250 Weight 115 kg Intake: IV 100 / 100 250 / 250 250 / 250 Cordarone Inj 450 MG In D5W Inj 250 / 250 250 / 250 241 ML @ 1 MG/MIN 33.33 mls/hr IV.CONT TITRATE PRN Rx#: [id number] Cordarone Inj 150 MG In D5W Inj 100 / 100 97 ML @ 100 mls/hr IV.SIG ONCE ONE Rx#:[id number] Oral 60 / 60 Output: Urine 0 / 0 Other: # Voids 1 Date of Last Bowel Movement 04/18/18 04/21/18 04/21/18 # Bowel Movements 1 - Constitutional no acute distress - Routine Neck Exam Absent: JVD - Routine Respiratory Exam Present: CTA bilaterally - Routine Cardiovascular Exam Present: S1, S2, bradycardia. Absent: murmur, gallop - Routine Abdominal Exam Present: soft, normoactive bowel sounds. Absent: tenderness, organomegaly - Routine Extremities Exam Absent: cyanosis, clubbing, edema Results 04/22/18 04:25 04/22/18 04:25 Cardiac Enzymes 04/21/18 04/21/18 04/21/18 Range/Units 01:45 08:20 21:44 AST 18 (15-37) U/L Troponin I 0.06 H 0.05 0.03 (0.02-0.05) ng/mL 04/22/18 Range/Units 04:25 AST 10 L (15-37) U/L Troponin I (0.02-0.05) ng/mL CBC 04/21/18 04/22/18 Range/Units 01:45 04:25 WBC 10.4 8.6 (4.0-11.0) th/mm3 RBC 5.04 3.89 L (4.50-5.90) mil/mm3 Hgb 14.1 11.6 L D (13.0-17.0) gm/dL Hct 44.1 34.1 L (39.0-51.0) % Plt Count 567 H 367 D (150-450) th/mm3 Neut # (Auto) 6.0 5.2 (1.8-7.7) th/mm3 Lymph # (Auto) 3.1 2.1 (1.0-4.8) th/mm3 [place] # (Auto) 0.7 0.8 (0.0-0.9) th/mm3 Eos # (Auto) 0.5 H 0.5 H (0.0-0.4) th/mm3 Baso # (Auto) 0.1 0.1 (0.0-0.2) th/mm3 Comprehensive Metabolic Panel 04/21/18 04/22/18 Range/Units 01:45 04:25 Sodium 138 140 (136-145) meq/L Potassium 3.9 4.2 (3.5-5.1) meq/L Chloride 100 106 (98-107) meq/L Carbon Dioxide 27.2 26.9 (21.0-32.0) meq/L BUN 17 17 (7-18) mg/dL Creatinine 1.10 1.15 (0.60-1.30) mg/dL Calcium 9.2 8.6 (8.5-10.1) mg/dL AST 18 10 L (15-37) U/L ALT 44 28 (12-78) U/L Alkaline Phosphatase 93 80 (45-117) U/L Total Protein 8.6 H 6.5 D (6.4-8.2) g/dL Albumin 4.1 3.3 L D (3.4-5.0) g/dL Intake and Output 04/21/18 04/22/18 04/22/18 22:59 06:59 14:59 Intake Total 250 / 250 250 / 250 Balance 250 / 250 250 / 250 Intake: IV 250 / 250 250 / 250 Cordarone Inj 450 MG In D5W Inj 250 / 250 250 / 250 241 ML @ 1 MG/MIN 33.33 mls/hr IV.CONT TITRATE PRN Rx#: [id number] Other: # Voids 1 Date of Last Bowel Movement 04/18/18 04/21/18 04/21/18 # Bowel Movements 1 Weight 115 kg - Imaging and Cardiology Imaging: Impressions Chest X-Ray 04/21/18 02:06 CONCLUSION: No acute abnormality demonstrated. Assessment and Plan - Assessment (1) Paroxysmal atrial flutter Code(s): I48.92 - Unspecified atrial flutter Status: Acute Plan: Stable overnight. Remains in sinus rhythm s/p cardioversion yesterday. OK to discharge home on same home cardiac medications, including Amiodarone, Toprol XL , and dabigatran. (2) Hypertrophic obstructive cardiomyopathy Code(s): I42.1 - Obstructive hypertrophic cardiomyopathy Status: Chronic Plan: Doing well s/p recent septal myomectomy. (3) Chest pain Code(s): R07.9 - Chest pain, unspecified Status: Acute Plan: No further atypical CP. Minimal CAD seen on cath last month. (4) History of implantable cardioverter-defibrillator (ICD) placement Code(s): Z95.810 - Presence of automatic (implantable) cardiac defibrillator Status: Chronic - Plan Code Status: full Discussed Condition With: patient (3) Chest pain Qualifiers: Chest pain type: unspecified Qualified Code(s): R07.9 - Chest pain, unspecified
[2018-04-22] MEDS ORDERED: Metoprolol Tartrate 25 MG Tablet PO SCH (21:00)
== END 2018-04-22 13:42 | disposition home or self-care (01) | DRG 309 ==
LOC: PHED 01:28 → PHEDA 04:40 → PHICU 06:15 → HCPC 10:29 → HCVI 11:00 → HCPC 04-22 09:02
PROVIDERS: ADMIT Hospitalist; ATTEND Hospitalist
CPT/HCPCS: 71010; 71045; 80053; 84484; 85025; 93005; J0282; J7030; J7060